=== PATIENT | female | born 1965 | race Caucasian/White ===

== ENCOUNTER → 2017-11-06 | Outpatient (CLI) | payer OTHER ==
--- NOTE | 2017-11-06 16:22 | MR ---
EXAMINATION TYPE: MR shoulder RT wo con DATE OF EXAM: 11/06/2017 COMPARISON: NONE HISTORY: Right shoulder pain TECHNIQUE: Multiplanar, multisequence imaging of the right shoulder is performed without contrast. Mo tion artifact is present during the exam. FINDINGS: Rotator Cuff: Appears be a perforation through the anterior supraspinatus tendon distally. This may e xtend into the subscapularis tendon. No muscle or tendon retraction is evident. Acromioclavicular Joint: There is some hypertrophy present. Minimal downward spurring is present. Mil d impingement is not excluded. Glenohumeral Joint: Glenohumeral joint spaces narrowed. Correlate for osteoarthritic degenerative joyce nge. Labrum: The labrum appears grossly intact given limitation of non-arthrogram study. Biceps Tendon: There is a large final fluid surrounding the long head of the biceps tendon. Correlate for significant biceps tendinosis Bone marrow signal: No focal abnormal marrow signal is appreciated. Other: No additional significant abnormality is appreciated. IMPRESSION: 1. Rotator cuff perforation likely at the region of the subscapularis supraspinatus junction. 2. Small joint effusion. 3. Significant fluid surrounding the long head of the biceps tendon. Correlate for biceps tendinosis.
== END | disposition home or self-care (01) ==
LOC: RADMRIMAIN 09:45
PROVIDERS: ATTEND Orthopaedic Surgery
DX: M25.411 Effusion, right shoulder (principal); M25.811 Other specified joint disorders, right shoulder

== ENCOUNTER 2019-03-11 14:04 | Inpatient (IN) | payer OTHER ==
[2019-03-11] MEDS ORDERED: ONDANSETRON 4 MG/2 ML VIAL IVP STA (14:38)
[2019-03-11] MEDS ORDERED: MORPHINE SULFATE 4 MG/ML SYRINGE IVP STA (14:38)
[2019-03-11] MEDS ORDERED: SODIUM CHLORIDE 0.9% 1,000 ML IV STA ×2 (14:39→17:14)
--- NOTE | 2019-03-11 14:46 | ED ---
Abdominal Pain HPI <Mega Coyle - Last Filed: 03/11/19 17:15> - General Source: patient, EMS Mode of arrival: EMS Limitations: no limitations <Tamiko Wetzel - Last Filed: 03/11/19 19:14> - General Chief Complaint: Abdominal Pain Stated Complaint: abdominal pain Time Seen by Provider: 03/11/19 14:32 - History of Present Illness Initial Comments: Patient is a 53-year-old female with past medical history of hypertension and hyperlipidemia presenting to emergency Department via EMS for severe abdominal pain that started about an hour ago. Patient states she was driving home and all of a sudden started sweating, and having severe left-sided abdominal pain. Patient also reports associated nausea and vomiting. Patient states she had a bowel movement shortly after returning home before she left and EMS. Patient denies any heart disease, but admits to mother having heart attack at age 50. Patient admits to history of abdominal surgeries including gastric bypass and several hernia repairs. (Tamiko Wetzel) - Related Data Home Medications Medication Instructions Recorded Confirmed Ibuprofen [Motrin] 800 mg PO Q8HR PRN 07/03/14 03/11/19 Lisinopril-Hctz 10-12.5 mg 1 tab PO DAILY 07/03/14 03/11/19 [Zestoretic 10-12.5] Simvastatin [Zocor] 10 mg PO HS 07/03/14 03/11/19 traMADol HCl [Ultram] 50 mg PO Q12H PRN 07/03/14 03/11/19 ALPRAZolam [Xanax] 0.25 mg PO BID PRN 03/11/19 03/11/19 Albuterol Sulfate [Proair Hfa] 2 puff INHALATION RT-Q6H PRN 03/11/19 03/11/19 Cholecalciferol [Vitamin D3 (25 3,000 unit PO DAILY 03/11/19 03/11/19 Mcg = 1000 Iu)] FLUoxetine HCL [PROzac] 80 mg PO DAILY 03/11/19 03/11/19 Mirabegron [Myrbetriq] 25 mg PO DAILY 03/11/19 03/11/19 Multivitamins, Thera [Multivitamin 1 tab PO DAILY 03/11/19 03/11/19 (formulary)] Oxybutynin Chloride [Oxybutynin 15 mg PO DAILY 03/11/19 03/11/19 Chloride ER] Triamterene-Hctz 37.5-25Mg 1 cap PO DAILY 03/11/19 03/11/19 [Dyazide 37.5-25 Capsule] Allergies Allergy/AdvReac Type Severity Reaction Status Date / Time cephalexin monohydrate Allergy Rash/Hives Verified 03/11/19 14:47 [From Keflex] Review of Systems ROS Other: All systems not noted in ROS Statement are negative. <Mega Coyle - Last Filed: 03/11/19 17:15> ROS Other: All systems not noted in ROS Statement are negative. <Tamiko Wetzel - Last Filed: 03/11/19 19:14> ROS Statement: Those systems with pertinent positive or pertinent negative responses have been documented in the HPI. Past Medical History Past Medical History: GERD/Reflux, Hyperlipidemia, Hypertension Additional Past Medical History / Comment(s): hernia History of Any Multi-Drug Resistant Organisms: None Reported Past Surgical History: Bariatric Surgery, Section, Cholecystectomy, Hernia Repair, Hysterectomy Additional Past Surgical History / Comment(s): lumpectomy Past Psychological History: Depression Smoking Status: Never smoker Past Alcohol Use History: Occasional Past Drug Use History: None Reported <Tamiko Wetzel - Last Filed: 03/11/19 19:14> General Exam Limitations: no limitations <Tamiko Wetzel - Last Filed: 03/11/19 19:14> - General Exam Comments Initial Comments: GENERAL: Patient appears to be in pain, diaphoretic. Patient able to speak and holding her abdomen. Patient is anxious. HEAD: Atraumatic, normocephalic. EYES: Pupils equal round and reactive to light, extraocular movements intact, sclera anicteric, conjunctiva are normal. ENT: TMs normal, nares patent, oropharynx clear without exudates. Moist mucous membranes. NECK: Normal range of motion, supple without lymphadenopathy or JVD. LUNGS: Breath sounds clear to auscultation bilaterally and equal. No wheezes rales or rhonchi. HEART: Bradycardic, and rhythm without murmurs, rubs or gallops. ABDOMEN: Abdomen is distended, generalized severe tenderness, patient is guarding, Normoactive bowel sounds. : Deferred EXTREMITIES: Normal range of motion, no pitting or edema. No clubbing or cyanosis. NEUROLOGICAL: Cranial nerves II through XII grossly intact. Normal speech, normal gait. PSYCH: Normal mood, normal affect. SKIN: Warm, Dry, normal turgor, no rashes or lesions noted. (Tamiko Wetzel) Course Vital Signs 03/11/19 14:08 Temperature 97.9 F Pulse Rate 47 L Respiratory 22 Rate Blood Pressure 183/119 O2 Sat by Pulse 100 Oximetry Medical Decision Making - Lab Data Result diagrams: 03/11/19 15:00 03/11/19 15:00 <Mega Coyle - Last Filed: 03/11/19 17:15> - Lab Data Result diagrams: 03/11/19 15:00 03/11/19 15:00 <Tamiko Wetzel - Last Filed: 03/11/19 19:14> - Medical Decision Making The patient was seen and examined. All diagnostics are reviewed. It does appear that she has a small bowel obstruction related to ventral hernia with possible ischemic bowel. The case is discussed with Dr. Cloud and he does re commend NG tube insertion and admission. The case is discussed with the PA and agree with the findings as documented. (Mega Coyle) Patient is a 53-year-old female complaining of severe abdominal pain since this morning. Patient has associated nausea, vomiting. Patient reports history of gastric bypass about 15 years ago and also several hernia repairs. On exam pat ient's abdomen was distended and generalized abdominal pain.CT abdomen shows large ventral abdominal hernia that contains mesenteric fat and multiple spinal small bowel loops resulting in a small bowel obstruction. There is reactive mesenteric edema and free fluid in the inferior hernia sac and measures up to 24 cm wide. There is portal venous gas within the inferior hernia sacs dishes for early bowel ischemia. Case was discussed with Dr. Coyle. Will contact Dr. Cloud for surgical consult. (Tamiko Wetzel) - Lab Data Lab Results 03/11/19 03/11/19 03/11/19 Range/Units 15:00 15:00 15:00 WBC 12.9 H (3.8-10.6) k/uL RBC 5.11 (3.80-5.40) m/uL Hgb 15.2 (11.4-16.0) gm/dL Hct 46.6 H (34.0-46.0) % MCV 91.3 (80.0-100.0) fL MCH 29.7 (25.0-35.0) pg MCHC 32.5 (31.0-37.0) g/dL RDW 13.8 (11.5-15.5) % Plt Count 372 (150-450) k/uL Neutrophils % 73 % Lymphocytes % 21 % Monocytes % 3 % Eosinophils % 2 % Basophils % 0 % Neutrophils # 9.4 H (1.3-7.7) k/uL Lymphocytes # 2.7 (1.0-4.8) k/uL Monocytes # 0.4 (0-1.0) k/uL Eosinophils # 0.2 (0-0.7) k/uL Basophils # 0.0 (0-0.2) k/uL Sodium 137 (137-145) mmol/L Potassium 4.3 (3.5-5.1) mmol/L Chloride 107 (98-107) mmol/L Carbon Dioxide 16 L (22-30) mmol/L Anion Gap 14 mmol/L BUN 26 H (7-17) mg/dL Creatinine 0.49 L (0.52-1.04) mg/dL Est GFR (CKD-EPI)AfAm >90 (>60 ml/min/1.73 sqM) Est GFR (CKD-EPI)NonAf >90 (>60 ml/min/1.73 sqM) Glucose 159 H (74-99) mg/dL Lactic Ac Sepsis Rflx Plasma Lactic Acid Zion 3.1 H* (0.7-2.0) mmol/L Calcium 9.3 (8.4-10.2) mg/dL Total Bilirubin 0.9 (0.2-1.3) mg/dL AST 31 (14-36) U/L ALT 25 (9-52) U/L Alkaline Phosphatase 65 (38-126) U/L Troponin I (0.000-0.034) ng/mL Total Protein 7.3 (6.3-8.2) g/dL Albumin 4.6 (3.5-5.0) g/dL 03/11/19 03/11/19 Range/Units 15:00 15:22 WBC (3.8-10.6) k/uL RBC (3.80-5.40) m/uL Hgb (11.4-16.0) gm/dL Hct (34.0-46.0) % MCV (80.0-100.0) fL MCH (25.0-35.0) pg MCHC (31.0-37.0) g/dL RDW (11.5-15.5) % Plt Count (150-450) k/uL Neutrophils % % Lymphocytes % % Monocytes % % Eosinophils % % Basophils % % Neutrophils # (1.3-7.7) k/uL Lymphocytes # (1.0-4.8) k/uL Monocytes # (0-1.0) k/uL Eosinophils # (0-0.7) k/uL Basophils # (0-0.2) k/uL Sodium (137-145) mmol/L Potassium (3.5-5.1) mmol/L Chloride (98-107) mmol/L Carbon Dioxide (22-30) mmol/L Anion Gap mmol/L BUN (7-17) mg/dL Creatinine (0.52-1.04) mg/dL Est GFR (CKD-EPI)AfAm (>60 ml/min/1.73 sqM) Est GFR (CKD-EPI)NonAf (>60 ml/min/1.73 sqM) Glucose (74-99) mg/dL Lactic Ac Sepsis Rflx Y Plasma Lactic Acid Zion (0.7-2.0) mmol/L Calcium (8.4-10.2) mg/dL Total Bilirubin (0.2-1.3) mg/dL AST (14-36) U/L ALT (9-52) U/L Alkaline Phosphatase (38-126) U/L Troponin I <0.012 (0.000-0.034) ng/mL Total Protein (6.3-8.2) g/dL Albumin (3.5-5.0) g/dL - EKG Data EKG Comments: Ventricular rate 51, AK interval 174, QRS 100, QTC 484. Sinus bradycardia, with prolonged QT. No ST segment changes. (Tamiko Wetzel) Disposition <Mega Coyle - Last Filed: 03/11/19 17:15> Is patient prescribed a controlled substance at d/c from ED?: No <Tamiko Wetzel - Last Filed: 03/11/19 19:14> Clinical Impression: Small bowel obstruction Disposition: ADMITTED IP TO THIS HOSP Condition: Stable
[2019-03-11 15:09] LABS: Basophils % (A) 0 %; Eosinophils # (A) 0.2 k/uL (0-0.7); Eosinophils % (A) 2 %; HCT 46.6 % (34.0-46.0); HGB 15.2 gm/dL (11.4-16.0); Lymphocytes # (A) 2.7 k/uL (1.0-4.8); Lymphocytes % (A) 21 %; MCH 29.7 pg (25.0-35.0); MCHC 32.5 g/dL (31.0-37.0); MCV 91.3 fL (80.0-100.0); Mean Platelet Volume 7.6; Monocytes # (A) 0.4 k/uL (0-1.0); Monocytes % (A) 3 %; Neutrophils # (A) 9.4 k/uL (1.3-7.7); Neutrophils % (A) 73 %; Platelet Count 372 k/uL (150-450); RBC 5.11 m/uL (3.80-5.40); RDW 13.8 % (11.5-15.5); WBC 12.9 k/uL (3.8-10.6)
[2019-03-11 15:17] LABS: African American GFR (CKD) >90 (>60 ml/min/1.73 sqM); Anion Gap 14 mmol/L; Blood Urea Nitrogen 26 mg/dL (7-17); Calcium 9.3 mg/dL (8.4-10.2); Carbon Dioxide 16 mmol/L (22-30); Chloride 107 mmol/L (98-107); Glucose 159 mg/dL (74-99); Sodium 137 mmol/L (137-145); Total Bilirubin 0.9 mg/dL (0.2-1.3)
[2019-03-11 15:19] LABS: ALT 25 U/L (9-52); AST 31 U/L (14-36); Albumin 4.6 g/dL (3.5-5.0); Potassium 4.3 mmol/L (3.5-5.1); Total Protein 7.3 g/dL (6.3-8.2)
[2019-03-11 15:20] LABS: Alkaline Phosphatase 65 U/L (38-126)
--- NOTE | 2019-03-11 15:53 | XR ---
EXAMINATION TYPE: XR chest 2V DATE OF EXAM: 03/11/2019 COMPARISON: NONE TECHNIQUE: PA and lateral views submitted. HISTORY: Cough and pain FINDINGS: The lungs are clear and there is no pneumothorax, pleural effusion, or focal pneumonia. Hypertrophi c and degenerative change of the spine noted. No overt failure. IMPRESSION: 1. No acute process.
--- NOTE | 2019-03-11 16:30 | CT ---
EXAMINATION TYPE: CT abdomen pelvis w con DATE OF EXAM: 03/11/2019 COMPARISON: 06/10/2015 HISTORY: 53-year-old female Generalized pain with vomiting TECHNIQUE: Contiguous axial scanning of the abdomen and pelvis following administration of 100 ml Iso alex 300 IV contrast. Delayed images through the kidneys and coronal/sagittal reconstructions perform ed. CT DLP: 2070.1 mGycm Automated exposure control for dose reduction was used. FINDINGS: Heart normal size without pericardial effusion. Small hiatal hernia with postsurgical changes of Francisco -en-Y gastric bypass No focal liver lesion or biliary ductal dilatation. Portal venous system is patent. Cholecystectomy c lips. Adrenal glands, kidneys, spleen, and atrophic pancreas show no gross abnormality. Redemonstrated supraumbilical midline hernia containing mesenteric fat and small bowel loops. The her shilpa sac measures 21.5 cm wide with the hernia neck measuring 9.2 cm wide (versus 24.7 cm and 8.1 cm, respectively on prior exam). However, new is a large infraumbilical component to the hernia measuring up to 24.0 cm. The hernia n radha measuring 7.7 cm wide. There is some fluid within the hernia sac and near multiple dilated small bowel loops measuring up to 4.5 cm. Distal ileum is collapsed. The hernia also contains proximal half of the transverse colon wh ich is collapsed. No mesenteric or retroperitoneal lymphadenopathy seen. No free air. However, some portal venous gas within the hernia sac is identified, refer to axial imag e 63 and 66. Bladder is nondistended. Uterus surgically absent. Possible visualization of a small left ovary. No a bnormal fluid collection in the pelvis or pelvic adenopathy. Bones: Facet arthropathy lower lumbar spine. Endplate spondylosis lower thoracic spine. IMPRESSION: 1. LARGE VENTRAL ABDOMINAL HERNIA SACS CONTAIN MESENTERIC FAT AND MULTIPLE SMALL BOWEL LOOPS AND RESU LT IN A SMALL BOWEL OBSTRUCTION WITH LOOPS DILATED UP TO 4.5 CM. THERE IS REACTIVE MESENTERIC EDEMA AND FREE FLUID IN THE INFERIOR HERNIA SAC WHICH IS NEW FROM 2014 AND MEASURES UP TO 24.0 CM WIDE. 2. ADDITIONAL PORTAL VENAL GAS WITHIN THE INFERIOR HERNIA SAC SUSPICIOUS FOR EARLY BOWEL ISCHEMIA. NO WILLIAM FREE AIR AT THIS TIME. CORRELATE WITH LACTIC ACID LEVELS. SURGICAL EVALUATION RECOMMENDED. 3. NOTE THAT THE INFERIOR HERNIA SAC ALSO CONTAINS COLLAPSED PROXIMAL HALF OF THE TRANSVERSE COLON. Critical findings called to Tamiko Wetzel in the ER at 4:25 PM.
[2019-03-11] MEDS ORDERED: NALOXONE 0.4 MG/ML 1 ML VIAL IV PRN (17:29)
[2019-03-11] MEDS ORDERED: MORPHINE SULFATE 4 MG/ML SYRINGE IV PRN (17:29)
[2019-03-11] MEDS: SODIUM CHLORIDE 0.9% 1,000 ML IV SCH (18:15)
--- NOTE | 2019-03-11 20:19 | XR ---
EXAMINATION: XR chest 1V DATE AND TIME: 03/11/2019 6:32 PM CLINICAL INDICATION: PHH; Pain TECHNIQUE: AP upright portable COMPARISON: 03/11/2019 at 3:59 PM FINDINGS: Since prior study and NG tube is been placed, and courses over the expected region of the thoracic es ophagus, looped within the projected position of the gastric cardia. The lungs are clear. The pleural spaces are negative. The cardiac silhouette is not enlarged. The remainder of the mediastinal silhouette is unremarkable. The skeletal structures and soft tissues are negative for acute findings. IMPRESSION: NG tube.
[2019-03-12] MEDS: SODIUM CHLORIDE 0.9% 1,000 ML IV SCH ×2 (06:16→19:47)
[2019-03-12 09:45] LABS: Basophils % (A) 0 %; Eosinophils # (A) 0.1 k/uL (0-0.7); Eosinophils % (A) 2 %; HCT 39.7 % (34.0-46.0); Lymphocytes # (A) 2.1 k/uL (1.0-4.8); Lymphocytes % (A) 29 %; MCH 30.6 pg (25.0-35.0); MCHC 32.6 g/dL (31.0-37.0); MCV 93.8 fL (80.0-100.0); Mean Platelet Volume 6.8; Monocytes # (A) 0.4 k/uL (0-1.0); Monocytes % (A) 5 %; Neutrophils # (A) 4.5 k/uL (1.3-7.7); Neutrophils % (A) 62 %; Platelet Count 296 k/uL (150-450); RBC 4.23 m/uL (3.80-5.40); RDW 13.2 % (11.5-15.5); WBC 7.3 k/uL (3.8-10.6)
[2019-03-12 10:16] LABS: ALT 21 U/L (9-52); AST 19 U/L (14-36); African American GFR (CKD) >90 (>60 ml/min/1.73 sqM); Alkaline Phosphatase 49 U/L (38-126); Anion Gap 3 mmol/L; Blood Urea Nitrogen 18 mg/dL (7-17); Calcium 8.2 mg/dL (8.4-10.2); Carbon Dioxide 24 mmol/L (22-30); Chloride 111 mmol/L (98-107); Glucose 91 mg/dL (74-99); Potassium 3.7 mmol/L (3.5-5.1); Sodium 138 mmol/L (137-145); Total Bilirubin 0.4 mg/dL (0.2-1.3); Total Protein 5.2 g/dL (6.3-8.2)
[2019-03-12] MEDS ORDERED: BENZOCAINE SPRAY 1 CAN MUCOUS MEM PRN (10:36)
[2019-03-12] MEDS: IOPAMIDOL-300 CONTRAST 30 ML VIAL (ORAL USE) PO PRN ×2 (11:18→12:09)
--- NOTE | 2019-03-12 12:57 | P.GSHP ---
History of Present Illness H&P Date: 03/12/19 Chief Complaint: abdominal pain CHIEF COMPLAINT: Abdominal pain HISTORY OF PRESENT ILLNESS: 53-year-old female who presented to emergency room with a chief complaint of abdominal pain. Patient states she was feeling well yesterday when all of a sudden she developed severe abdominal pain. She reports that her abdomen was very firm and bloated. She reports nausea yesterday but denies episodes of vomiting. NG tube was inserted overnight. Minimal output and canister. Patient states her abdominal pain has resolved. She states her belly feels back to normal and is no longer feeling bloated. She is passing flatus this morning. She denies bowel movement. PAST MEDICAL HISTORY: See list. PAST SURGICAL HISTORY: See list. SOCIAL HISTORY: No illicit drug use. REVIEW OF SYSTEMS: CONSTITUTIONAL: Denies fever or chills. HEENT: Denies blurred vision, vision changes, or eye pain. Denies hemoptysis CARDIOVASCULAR: Denies chest pain or pressure. RESPIRATORY: No shortness of breath. GASTROINTESTINAL: Refer to HPI for pertinent findings HEMATOLOGIC: Denies bleeding disorders. GENITOURINARY: Denies any blood in urine. SKIN: Denies pruitis. Denies rash. PHYSICAL EXAM: VITAL SIGNS: Reviewed. GENERAL: Well-developed in no acute distress. HEENT: No sclera icterus. Extraocular movements grossly intact. Moist buccal mucosa. Head is atraumatic, normocephalic. ABDOMEN: Obese. Soft. Nondistended. Nontender. Hernia to right lower quadrant-reducible. Ventral hernia reduced. NEUROLOGIC: Alert and oriented. Cranial nerves II through XII grossly intact. LABORATORY DATA: WBC on admission 12.9. Repeat 7.3. Hemoglobin on admission 15.2. Repeat 13.0. Lactic acid on admission 3.1. Repeat 1.1. IMAGING: Computed tomography abdomen and pelvis revealing large ventral hernia containing mesenteric fat and multiple small bowel loops with small bowel obstruction with loops dilated up to 4.5 cm. Reactive mesenteric edema and free fluid in the inferior hernia sac. Additional portal venal gas within the inferior hernia sac suspicious for early bowel ischemia. No marcell free air. Inferior hernia sac also contains collapsed proximal half of the transverse colon. ASSESSMENT: 1. Large ventral hernia with subsequent small bowel obstruction PLAN: 1. Continue NG tube. NPO 2. CT abdomen pelvis with oral contrast 3. Further recommendations pending CT scan results Nurse practitioner note has been reviewed by physician. Signing provider agrees with the documented findings, assessment, and plan of care. Past Medical History Past Medical History: GERD/Reflux, Hyperlipidemia, Hypertension Additional Past Medical History / Comment(s): hernia History of Any Multi-Drug Resistant Organisms: None Reported Past Surgical History: Bariatric Surgery, Section, Cholecystectomy, Hernia Repair, Hysterectomy Additional Past Surgical History / Comment(s): lumpectomy Past Anesthesia/Blood Transfusion Reactions: Postoperative Nausea & Vomiting (PONV) Past Psychological History: Anxiety, Depression Additional Psychological History / Comment(s): XANAS AND PROZAC NEEDED Smoking Status: Never smoker Past Alcohol Use History: Occasional Past Drug Use History: None Reported - Past Family History Father Family Medical History: CVA/TIA Additional Family Medical History / Comment(s): AT 49 Mother Family Medical History: Myocardial Infarction ([place]) Additional Family Medical History / Comment(s): AT 57 Medications and Allergies Home Medications Medication Instructions Recorded Confirmed Type Ibuprofen [Motrin] 800 mg PO Q8HR PRN 07/03/14 03/11/19 History Lisinopril-Hctz 10-12.5 mg 1 tab PO DAILY 07/03/14 03/11/19 History [Zestoretic 10-12.5] Simvastatin [Zocor] 10 mg PO HS 07/03/14 03/11/19 History traMADol HCl [Ultram] 50 mg PO Q12H PRN 07/03/14 03/11/19 History ALPRAZolam [Xanax] 0.25 mg PO BID PRN 03/11/19 03/11/19 History Albuterol Sulfate [Proair Hfa] 2 puff INHALATION RT-Q6H PRN 03/11/19 03/11/19 History Cholecalciferol [Vitamin D3 (25 3,000 unit PO DAILY 03/11/19 03/11/19 History Mcg = 1000 Iu)] FLUoxetine HCL [PROzac] 80 mg PO DAILY 03/11/19 03/11/19 History Mirabegron [Myrbetriq] 25 mg PO DAILY 03/11/19 03/11/19 History Multivitamins, Thera [Multivitamin 1 tab PO DAILY 03/11/19 03/11/19 History (formulary)] Oxybutynin Chloride [Oxybutynin 15 mg PO DAILY 03/11/19 03/11/19 History Chloride ER] Triamterene-Hctz 37.5-25Mg 1 cap PO DAILY 03/11/19 03/11/19 History [Dyazide 37.5-25 Capsule] Allergies Allergy/AdvReac Type Severity Reaction Status Date / Time cephalexin monohydrate Allergy Rash/Hives Verified 03/11/19 14:47 [From Keflex] Surgical - Exam Vital Signs Temp Pulse Resp BP Pulse Ox 97.9 F 47 L 22 183/119 100 03/11/19 14:08 03/11/19 14:08 03/11/19 14:08 03/11/19 14:08 03/11/19 14:08 Results - Labs 03/12/19 09:15 03/12/19 09:15 Abnormal Lab Results - Last 24 Hours (Table) 03/11/19 03/11/19 03/11/19 Range/Units 15:00 15:00 15:00 WBC 12.9 H (3.8-10.6) k/uL Hct 46.6 H (34.0-46.0) % Neutrophils # 9.4 H (1.3-7.7) k/uL Chloride (98-107) mmol/L Carbon Dioxide 16 L (22-30) mmol/L BUN 26 H (7-17) mg/dL Creatinine 0.49 L (0.52-1.04) mg/dL Glucose 159 H (74-99) mg/dL Plasma Lactic Acid Zion 3.1 H* (0.7-2.0) mmol/L Calcium (8.4-10.2) mg/dL Total Protein (6.3-8.2) g/dL Albumin (3.5-5.0) g/dL 03/12/19 Range/Units 09:15 WBC (3.8-10.6) k/uL Hct (34.0-46.0) % Neutrophils # (1.3-7.7) k/uL Chloride 111 H (98-107) mmol/L Carbon Dioxide (22-30) mmol/L BUN 18 H (7-17) mg/dL Creatinine 0.44 L (0.52-1.04) mg/dL Glucose (74-99) mg/dL Plasma Lactic Acid Zion (0.7-2.0) mmol/L Calcium 8.2 L (8.4-10.2) mg/dL Total Protein 5.2 L (6.3-8.2) g/dL Albumin 3.0 L (3.5-5.0) g/dL Diabetes panel 03/11/19 03/12/19 Range/Units 15:00 09:15 Sodium 137 138 (137-145) mmol/L Potassium 4.3 3.7 (3.5-5.1) mmol/L Chloride 107 111 H (98-107) mmol/L Carbon Dioxide 16 L 24 (22-30) mmol/L BUN 26 H 18 H (7-17) mg/dL Creatinine 0.49 L 0.44 L (0.52-1.04) mg/dL Glucose 159 H 91 (74-99) mg/dL Calcium 9.3 8.2 L (8.4-10.2) mg/dL AST 31 19 (14-36) U/L ALT 25 21 (9-52) U/L Alkaline Phosphatase 65 49 (38-126) U/L Total Protein 7.3 5.2 L (6.3-8.2) g/dL Albumin 4.6 3.0 L (3.5-5.0) g/dL Calcium panel 03/11/19 03/12/19 Range/Units 15:00 09:15 Calcium 9.3 8.2 L (8.4-10.2) mg/dL Albumin 4.6 3.0 L (3.5-5.0) g/dL Pituitary panel 03/11/19 03/12/19 Range/Units 15:00 09:15 Sodium 137 138 (137-145) mmol/L Potassium 4.3 3.7 (3.5-5.1) mmol/L Chloride 107 111 H (98-107) mmol/L Carbon Dioxide 16 L 24 (22-30) mmol/L BUN 26 H 18 H (7-17) mg/dL Creatinine 0.49 L 0.44 L (0.52-1.04) mg/dL Glucose 159 H 91 (74-99) mg/dL Calcium 9.3 8.2 L (8.4-10.2) mg/dL Adrenal panel 03/11/19 03/12/19 Range/Units 15:00 09:15 Sodium 137 138 (137-145) mmol/L Potassium 4.3 3.7 (3.5-5.1) mmol/L Chloride 107 111 H (98-107) mmol/L Carbon Dioxide 16 L 24 (22-30) mmol/L BUN 26 H 18 H (7-17) mg/dL Creatinine 0.49 L 0.44 L (0.52-1.04) mg/dL Glucose 159 H 91 (74-99) mg/dL Calcium 9.3 8.2 L (8.4-10.2) mg/dL Total Bilirubin 0.9 0.4 (0.2-1.3) mg/dL AST 31 19 (14-36) U/L ALT 25 21 (9-52) U/L Alkaline Phosphatase 65 49 (38-126) U/L Total Protein 7.3 5.2 L (6.3-8.2) g/dL Albumin 4.6 3.0 L (3.5-5.0) g/dL
--- NOTE | 2019-03-12 13:05 | CT ---
EXAMINATION TYPE: CT abdomen pelvis wo con DATE OF EXAM: 03/12/2019 HISTORY: Pain and bloating, possible bowel obstruction. Automated Exposure Control for Dose Reduction was Utilized. TECHNIQUE: CT scan of the abdomen and pelvis is performed with oral but without IV contrast. COMPARISON: CT abdomen and pelvis from yesterday FINDINGS: Within the limitations of a non-contrast study, the following observations are made. LUNG BASES: No significant abnormality is appreciated. LIVER/GB: Cholecystectomy clips are redemonstrated. PANCREAS: Mild to moderate generalized fat replaced atrophy of pancreas again seen. SPLEEN: No significant abnormality is seen. ADRENALS: No significant abnormality is seen. KIDNEYS: No significant abnormality is seen. BOWEL: The oral contrast only reaches mid small bowel level making evaluation of distal bowel subopti mal. There is new nasogastric tube projecting below diaphragm. Surgical changes from gastric bypass p rocedure are redemonstrated. There are no abnormally dilated small bowel loops on current study. There are persistent 2 wide neck hernia is containing nonobstructed small and large bowel loops in the midabdomen with some focal flui d in the right aspect of the hernia defect as well as mesenteric vessels and small lymph nodes throug hout the hernia defect all redemonstrated. There is interval improvement in small bowel dilatation an d air-fluid levels after nasogastric tube placement. GENITAL ORGANS: Uterus is surgically absent or markedly atrophic. LYMPH NODES: No greater than 1cm abdominal or pelvic lymph nodes are appreciated. OSSEOUS STRUCTURES: S-Shaped scoliosis with multilevel moderate spurring throughout the spine is pres ent. OTHER: No significant additional abnormality is seen. IMPRESSION: Interval improvement in dilated small bowel loops with air-fluid levels after nasogastric tube placement. Redemonstration of persistent large ventral wall hernias containing bowel as well as mesenteric vessels.
[2019-03-12] MEDS ORDERED: ALPRAZolam 0.25 MG TAB PO PRN (13:17)
[2019-03-12] MEDS ORDERED: ALBUTEROL NEBULIZED 2.5 MG/3 ML INHALATION PRN (13:17)
[2019-03-12] MEDS ORDERED: ACETAMINOPHEN TAB 325 MG TAB PO PRN (15:58)
[2019-03-12] MEDS: HEPARIN SODIUM,PORCINE 5,000 UNIT/ML 1 ML VIAL SQ SCH (16:31)
--- NOTE | 2019-03-12 16:50 | P.CONS ---
History of Present Illness - Reason for Consult Recommendations regarding antihypertensive medications - History of Present Illness 53-year-old the female was admitted for abdominal pain and the small bowel o bstruction. Patient appears to have adhesions multiple surgeries including the ventral hernia repair. Patient has an NG tube which is not draining anything since morning patient apparently was draining yesterday. Patient denied any fever chills nausea vomiting. Patient does have history of hypertension patient blood pressure is elevated and she is didn't receive any of her medication patient is an OMAYRA inhibitor and diuretic therapy diuretic therapy will be held as she is receiving IV fluids for small bowel obstruction. Patient's lisinopril dose will be increased tomorrow. He can give it the to the NG tube clamping although patient doesn't have any nausea at this time abdominal pain sig nificantly improved at this time. Patient has bowel sounds but still sluggish. Review of Systems REVIEW OF SYSTEMS: CONSTITUTIONAL: No fever, no malaise, no fatigue. HEENT: No recent visual problems or hearing problems. Denied any sore throat. CARDIOVASCULAR: No chest pain, orthopnea, PND, no palpitations, no syncope. PULMONARY: No shortness of breath, no cough, no hemoptysis. GASTROINTESTINAL: As mentioned in HPI NEUROLOGICAL: No headaches, no weakness, no numbness. HEMATOLOGICAL: Denies any bleeding or petechiae. GENITOURINARY: Denies any burning micturition, frequency, or urgency. MUSCULOSKELETAL/RHEUMATOLOGICAL: Denies any joint pain, swelling, or any muscle pain. ENDOCRINE: Denies any polyuria or polydipsia. The rest of the 14-point review of systems is negative. Past Medical History Past Medical History: GERD/Reflux, Hyperlipidemia, Hypertension Additional Past Medical History / Comment(s): hernia History of Any Multi-Drug Resistant Organisms: None Reported Past Surgical History: Bariatric Surgery, Section, Cholecystectomy, Hernia Repair, Hysterectomy Additional Past Surgical History / Comment(s): lumpectomy Past Anesthesia/Blood Transfusion Reactions: Postoperative Nausea & Vomiting (PONV) Past Psychological History: Anxiety, Depression Additional Psychological History / Comment(s): XANAS AND PROZAC NEEDED Smoking Status: Never smoker Past Alcohol Use History: Occasional Past Drug Use History: None Reported - Past Family History Father Family Medical History: CVA/TIA Additional Family Medical History / Comment(s): AT 49 Mother Family Medical History: Myocardial Infarction (MD) Additional Family Medical History / Comment(s): AT 57 Medications and Allergies Home Medications Medication Instructions Recorded Confirmed Type Ibuprofen [Motrin] 800 mg PO Q8HR PRN 07/03/14 03/11/19 History Lisinopril-Hctz 10-12.5 mg 1 tab PO DAILY 07/03/14 03/11/19 History [Zestoretic 10-12.5] Simvastatin [Zocor] 10 mg PO HS 07/03/14 03/11/19 History traMADol HCl [Ultram] 50 mg PO Q12H PRN 07/03/14 03/11/19 History ALPRAZolam [Xanax] 0.25 mg PO BID PRN 03/11/19 03/11/19 History Albuterol Sulfate [Proair Hfa] 2 puff INHALATION RT-Q6H PRN 03/11/19 03/11/19 History Cholecalciferol [Vitamin D3 (25 3,000 unit PO DAILY 03/11/19 03/11/19 History Mcg = 1000 Iu)] FLUoxetine HCL [PROzac] 80 mg PO DAILY 03/11/19 03/11/19 History Mirabegron [Myrbetriq] 25 mg PO DAILY 03/11/19 03/11/19 History Multivitamins, Thera [Multivitamin 1 tab PO DAILY 03/11/19 03/11/19 History (formulary)] Oxybutynin Chloride [Oxybutynin 15 mg PO DAILY 03/11/19 03/11/19 History Chloride ER] Triamterene-Hctz 37.5-25Mg 1 cap PO DAILY 03/11/19 03/11/19 History [Dyazide 37.5-25 Capsule] Allergies Allergy/AdvReac Type Severity Reaction Status Date / Time cephalexin monohydrate Allergy Rash/Hives Verified 03/11/19 14:47 [From Keflex] Physical Exam Vitals: Vital Signs Temp Pulse Pulse Pulse Resp BP BP 03/12/19 13:41 98.1 F 61 16 03/12/19 06:52 98.8 F 57 L 16 03/12/19 00:25 97.8 F 73 18 148/89 03/11/19 21:00 75 18 145/80 03/11/19 20:00 77 154/83 03/11/19 19:00 75 18 154/87 03/11/19 18:00 79 142/87 03/11/19 17:00 82 18 158/83 BP Pulse Ox 03/12/19 13:41 153/81 98 03/12/19 06:52 143/80 96 03/12/19 00:25 100 03/11/19 21:00 03/11/19 20:00 03/11/19 19:00 03/11/19 18:00 03/11/19 17:00 Intake and Output 03/12/19 03/12/19 03/12/19 06:59 14:59 22:59 Intake Total 200 Balance 200 Intake: Intake, IV Titration 200 Amount Sodium Chloride 0.9% 1, 200 000 ml @ 100 mls/hr IV . Q10H [facility] Rx#:[id number] Other: Voiding Method Toilet # Voids 1 2 PHYSICAL EXAMINATION: GENERAL: The patient is alert and oriented x3, not in any acute distress. Obese female HEENT: Pupils are round and equally reacting to light. EOMI. No scleral icterus. No conjunctival pallor. Normocephalic, atraumatic. No pharyngeal erythema. No thyromegaly. CARDIOVASCULAR: S1 and S2 present. No murmurs, rubs, or gallops. PULMONARY: Chest is clear to auscultation, no wheezing or crackles. ABDOMEN: Soft, nontender, sluggish bowel sounds MUSCULOSKELETAL: No joint swelling or deformity. EXTREMITIES: No cyanosis, clubbing, or pedal edema. NEUROLOGICAL: Gross neurological examination did not reveal any focal deficits. SKIN: No rashes. Results CBC & Chem 7: 03/12/19 09:15 03/12/19 09:15 Labs: Abnormal Lab Results - Last 24 Hours (Table) 03/12/19 Range/Units 09:15 Chloride 111 H (98-107) mmol/L BUN 18 H (7-17) mg/dL Creatinine 0.44 L (0.52-1.04) mg/dL Calcium 8.2 L (8.4-10.2) mg/dL Total Protein 5.2 L (6.3-8.2) g/dL Albumin 3.0 L (3.5-5.0) g/dL Assessment and Plan Plan: -Hypertension: Management as mentioned above we'll increase the dose of lisinopril hold off on diuretic therapy because of above-mentioned reasons -Partial small bowel obstruction further management as per primary service -Hyperlipidemia -Hypertension -Gastroesophageal reflux disease -anxiety and depression For above-mentioned chronic medical problems I'll resume on appropriate medications medication reconciliation was done
[2019-03-13] MEDS: SODIUM CHLORIDE 0.9% 1,000 ML IV SCH ×3 (00:22→20:57)
[2019-03-13] MEDS: HEPARIN SODIUM,PORCINE 5,000 UNIT/ML 1 ML VIAL SQ SCH ×4 (00:22→23:28)
[2019-03-13 07:26] LABS: Basophils % (A) 0 %; Eosinophils # (A) 0.2 k/uL (0-0.7); Eosinophils % (A) 4 %; HCT 38.4 % (34.0-46.0); HGB 12.4 gm/dL (11.4-16.0); Lymphocytes # (A) 2.1 k/uL (1.0-4.8); Lymphocytes % (A) 38 %; MCH 30.5 pg (25.0-35.0); MCHC 32.2 g/dL (31.0-37.0); MCV 94.7 fL (80.0-100.0); Monocytes # (A) 0.3 k/uL (0-1.0); Monocytes % (A) 5 %; Neutrophils # (A) 2.8 k/uL (1.3-7.7); Neutrophils % (A) 51 %; Platelet Count 260 k/uL (150-450); RBC 4.06 m/uL (3.80-5.40); WBC 5.5 k/uL (3.8-10.6)
[2019-03-13 07:53] LABS: African American GFR (CKD) >90 (>60 ml/min/1.73 sqM); Anion Gap 4 mmol/L; Blood Urea Nitrogen 12 mg/dL (7-17); Calcium 8.5 mg/dL (8.4-10.2); Carbon Dioxide 24 mmol/L (22-30); Chloride 112 mmol/L (98-107); Glucose 86 mg/dL (74-99); Potassium 3.7 mmol/L (3.5-5.1); Sodium 140 mmol/L (137-145)
[2019-03-13] MEDS ORDERED: TRIAMTERENE-HCTZ 37.5-25MG 1 EACH CAP PO SCH (09:00)
[2019-03-13] MEDS ORDERED: LISINOPRIL-HCTZ 10-12.5 MG 1 EACH TAB PO SCH (09:00)
[2019-03-13] MEDS: PANTOPRAZOLE 40 MG/10 ML VIAL IVP SCH (09:40)
[2019-03-13] MEDS: LISINOPRIL 20 MG TAB PO SCH (09:41)
[2019-03-13] MEDS: FLUoxetine HCL 20 MG CAP PO SCH (09:41)
[2019-03-13] MEDS: OXYBUTYNIN 15 MG TAB.ER.24 PO SCH (12:16)
--- NOTE | 2019-03-13 13:50 | P.PN ---
Progress Note - Text Progress Note Date: 03/13/19 The patient feels better. She's had flatus and a small bowel movement. She denies a significant abdominal pain. On exam her vital signs are stable. Her abdomen soft. Patient's nasogastric tube will be removed. She'll start on clear liquid advancing to full liquid diet.
--- NOTE | 2019-03-13 15:34 | P.PN ---
Subjective Patient does have bowel sounds, did pass gas NG tube no drainage probably this will be removed and patient is otherwise clinically doing well no overnight events blood pressure is better controlled but still elevated. Constitutional: Denied any fatigue denied any fever. Cardio vascular: denied any chest pain, palpitations Gastrointestinal denied any nausea vomiting Pulmonary: Denied any shortness of breath cough Neurologic denied any new focal deficits All inpatient medications were reviewed and appropriate changes in these medications as dictated in the interval history and assessment and plan. Objective - Vital Signs Vital signs: Vital Signs Temp 98.7 F 03/13/19 13:53 Pulse 50 L 03/13/19 13:53 Resp 16 03/13/19 13:53 BP 149/72 03/13/19 13:53 Pulse Ox 98 03/13/19 13:53 Intake & Output 03/12/19 03/13/19 03/13/19 18:59 06:59 18:59 Intake Total 1010 Balance 1010 Intake: Intake, IV Titration 1000 Amount Sodium Chloride 0.9% 1, 1000 000 ml @ 100 mls/hr IV . Q10H [facility] Rx#:[id number] Oral 10 Other: Voiding Method Toilet # Voids 2 1 # Bowel Movements 1 - Exam PHYSICAL EXAMINATION: GENERAL: The patient is alert and oriented x3, not in any acute distress. Well developed, well nourished. HEENT: Pupils are round and equally reacting to light. EOMI. No scleral icterus. No conjunctival pallor. Normocephalic, atraumatic. No pharyngeal erythema. No thyromegaly. CARDIOVASCULAR: S1 and S2 present. No murmurs, rubs, or gallops. PULMONARY: Chest is clear to auscultation, no wheezing or crackles. ABDOMEN: Soft, nontender, nondistended, normoactive bowel sounds. No palpable organomegaly. NG tube in place MUSCULOSKELETAL: Deferred to orthopedic surgery EXTREMITIES: No cyanosis, clubbing, or pedal edema. NEUROLOGICAL: Gross neurological examination did not reveal any focal deficits. SKIN: No rashes. - Labs CBC & Chem 7: 03/13/19 07:00 03/13/19 07:00 Labs: Abnormal Lab Results - Last 24 Hours (Table) 03/13/19 Range/Units 07:00 Chloride 112 H (98-107) mmol/L Creatinine 0.49 L (0.52-1.04) mg/dL Assessment and Plan Plan: -Hypertension: Patient blood pressures better controlled will continue the present regimen -Partial small bowel obstruction further management as per primary service NG tube will be removed today -Hyperlipidemia -Hypertension -Gastroesophageal reflux disease -anxiety and depression For above-mentioned chronic medical problems I'll resume on appropriate medicati ons medication reconciliation was done
[2019-03-14 02:38] VITALS: TEMP 98.5
[2019-03-14] MEDS: SODIUM CHLORIDE 0.9% 1,000 ML IV SCH (05:53)
[2019-03-14] MEDS: HEPARIN SODIUM,PORCINE 5,000 UNIT/ML 1 ML VIAL SQ SCH (08:16)
[2019-03-14] MEDS: PANTOPRAZOLE 40 MG/10 ML VIAL IVP SCH (08:16)
[2019-03-14] MEDS: LISINOPRIL 20 MG TAB PO SCH (08:16)
[2019-03-14] MEDS: FLUoxetine HCL 20 MG CAP PO SCH (08:16)
[2019-03-14] MEDS: OXYBUTYNIN 15 MG TAB.ER.24 PO SCH (08:17)
[2019-03-14 08:28] VITALS: BP 128/69; PULSE 42; RESP 15
[2019-03-14 08:42] LABS: Basophils % (A) 0 %; Eosinophils # (A) 0.2 k/uL (0-0.7); Eosinophils % (A) 3 %; HCT 36.9 % (34.0-46.0); HGB 11.8 gm/dL (11.4-16.0); Lymphocytes # (A) 2.1 k/uL (1.0-4.8); Lymphocytes % (A) 39 %; MCH 30.3 pg (25.0-35.0); MCHC 32.1 g/dL (31.0-37.0); MCV 94.4 fL (80.0-100.0); Mean Platelet Volume 6.9; Monocytes # (A) 0.2 k/uL (0-1.0); Monocytes % (A) 3 %; Neutrophils # (A) 2.9 k/uL (1.3-7.7); Neutrophils % (A) 53 %; Platelet Count 260 k/uL (150-450); RBC 3.91 m/uL (3.80-5.40); RDW 12.9 % (11.5-15.5); WBC 5.5 k/uL (3.8-10.6)
[2019-03-14 08:53] LABS: African American GFR (CKD) >90 (>60 ml/min/1.73 sqM); Anion Gap 6 mmol/L; Blood Urea Nitrogen 8 mg/dL (7-17); Calcium 8.7 mg/dL (8.4-10.2); Carbon Dioxide 24 mmol/L (22-30); Chloride 110 mmol/L (98-107); Glucose 119 mg/dL (74-99); Potassium 3.9 mmol/L (3.5-5.1); Sodium 140 mmol/L (137-145)
--- NOTE | 2019-03-14 10:59 | P.DS ---
Providers Date of admission: 03/11/19 17:15 Expected date of discharge: 03/14/19 Attending physician: Jose G Cloud Consults: 03/12/19 13:18 Consult Physician Routine Consulting Provider: Angelica Sr Consult Reason/Comments: medical management Do you want consulting provider notified?: Yes Primary care physician: Jennifer [place] Hospital Course: This is a 53-year-old female who was admitted to the hospital with a partial small bowel obstruction related to an incarcerated incisional hernia. Patient's symptoms resolved with conservative therapy. Please see CHART for details. Patient Condition at Discharge: Good Plan - Discharge Summary Discharge Rx Participant: Yes New Discharge Prescriptions: No Action Lisinopril-Hctz 10-12.5 mg [Zestoretic 10-12.5] 1 tab PO DAILY traMADol HCl [Ultram] 50 mg PO Q12H PRN PRN Reason: Pain Simvastatin [Zocor] 10 mg PO HS Ibuprofen [Motrin] 800 mg PO Q8HR PRN PRN Reason: Pain Oxybutynin Chloride [Oxybutynin Chloride ER] 15 mg PO DAILY FLUoxetine HCL [PROzac] 80 mg PO DAILY ALPRAZolam [Xanax] 0.25 mg PO BID PRN PRN Reason: Anxiety Triamterene-Hctz 37.5-25Mg [Dyazide 37.5-25 Capsule] 1 cap PO DAILY Albuterol Sulfate [Proair Hfa] 2 puff INHALATION RT-Q6H PRN PRN Reason: Shortness Of Breath Multivitamins, Thera [Multivitamin (formulary)] 1 tab PO DAILY Cholecalciferol [Vitamin D3 (25 Mcg = 1000 Iu)] 3,000 unit PO DAILY Mirabegron [Myrbetriq] 25 mg PO DAILY Discharge Medication List Ibuprofen [Motrin] 800 mg PO Q8HR PRN 07/03/14 [History] Lisinopril-Hctz 10-12.5 mg [Zestoretic 10-12.5] 1 tab PO DAILY 07/03/14 [History] Simvastatin [Zocor] 10 mg PO HS 07/03/14 [History] traMADol HCl [Ultram] 50 mg PO Q12H PRN 07/03/14 [History] ALPRAZolam [Xanax] 0.25 mg PO BID PRN 03/11/19 [History] Albuterol Sulfate [Proair Hfa] 2 puff INHALATION RT-Q6H PRN 03/11/19 [History] Cholecalciferol [Vitamin D3 (25 Mcg = 1000 Iu)] 3,000 unit PO DAILY 03/11/19 [History] FLUoxetine HCL [PROzac] 80 mg PO DAILY 03/11/19 [History] Mirabegron [Myrbetriq] 25 mg PO DAILY 03/11/19 [History] Multivitamins, Thera [Multivitamin (formulary)] 1 tab PO DAILY 03/11/19 [History] Oxybutynin Chloride [Oxybutynin Chloride ER] 15 mg PO DAILY 03/11/19 [History] Triamterene-Hctz 37.5-25Mg [Dyazide 37.5-25 Capsule] 1 cap PO DAILY 03/11/19 [History] Follow up Appointment(s)/Referral(s): Jennifer Robert III, MD [Primary Care Provider] - 1-2 days Jose G Cloud MD [STAFF PHYSICIAN] - 1 Week
[2019-03-15] MEDS ORDERED: PANTOPRAZOLE 40 MG TABLET PO SCH (09:00)
== END 2019-03-14 13:20 | disposition home or self-care (01) | DRG 395 ==
LOC: EC 14:04 → 4SSUR 17:15
PROVIDERS: ADMIT Surgery; ATTEND Surgery
DX: K43.0 Incisional hernia with obstruction, without gangrene (principal); K21.9 Gastro-esophageal reflux disease without esophagitis; I10 Essential (primary) hypertension; E78.5 Hyperlipidemia, unspecified; F32.9 Major depressive disorder, single episode, unspecified; F41.9 Anxiety disorder, unspecified; Z82.49 Family history of ischemic heart disease and other diseases of the circulatory system; Z90.710 Acquired absence of both cervix and uterus; Z90.49 Acquired absence of other specified parts of digestive tract; Z79.899 Other long term (current) drug therapy; Z88.1 Allergy status to other antibiotic agents
CPT/HCPCS: 36415; 71045; 71046; 74176; 74177; 80048; 80053; 83605; 84484; 85025; 93005; 96361; 96374; 96375; 96376; 99285

== ENCOUNTER → 2019-07-01 | Outpatient (CLI) | payer OTHER ==
[2019-07-01 14:01] LABS: Basophils % (A) 1 %; Eosinophils # (A) 0.2 k/uL (0-0.7); Eosinophils % (A) 3 %; HCT 41.1 % (34.0-46.0); HGB 13.7 gm/dL (11.4-16.0); Lymphocytes # (A) 2.3 k/uL (1.0-4.8); Lymphocytes % (A) 41 %; MCH 30.4 pg (25.0-35.0); MCHC 33.3 g/dL (31.0-37.0); MCV 91.4 fL (80.0-100.0); Mean Platelet Volume 6.6; Monocytes # (A) 0.3 k/uL (0-1.0); Monocytes % (A) 6 %; Neutrophils # (A) 2.7 k/uL (1.3-7.7); Neutrophils % (A) 48 %; Platelet Count 314 k/uL (150-450); RDW 12.9 % (11.5-15.5); WBC 5.6 k/uL (3.8-10.6)
== END | disposition home or self-care (01) ==
LOC: LABWHC1 12:58
PROVIDERS: ATTEND Surgery
DX: Z01.812 Encounter for preprocedural laboratory examination (principal); K43.0 Incisional hernia with obstruction, without gangrene; F17.200 Nicotine dependence, unspecified, uncomplicated; D64.9 Anemia, unspecified
CPT/HCPCS: 36415; 85025

== ENCOUNTER 2019-07-04 06:04 | Observation (INO) | payer OTHER ==
[~2019-07-04 06:04] MED LIST: CLINDAMYCIN 900 MG in DEXTROSE 5% IN WATER 50 ML IVPB ONE; DEXAMETHASONE SOD PHOSPHATE 10 MG/ML 1 ML VIAL IV ONE; HEPARIN SODIUM,PORCINE 5,000 UNIT/ML 1 ML VIAL SQ ONE; LACTATED RINGERS 1,000 ML IV SCH; LEVOFLOXACIN 500MG-D5W PMX 500 MG in DEXTROSE/WATER 1 100ML.BAG IVPB ONE; LIDOCAINE 1% 20 ML VIAL (10MG/ML) FOR IV START INTRADERMA PRN; ONDANSETRON 4 MG/2 ML VIAL IVP ONE; SCOPOLAMINE 1.5MG/72HR PATCH TRANSDERM ONE
[2019-07-04] MEDS ORDERED: MIDAZOLAM PF (FBP) 2 MG/2 ML VIAL IVP ONE (07:01)
[2019-07-04] MEDS ORDERED: fentaNYL (PF) 50 MCG/ML 2 ML AMP IVP ONE (07:02)
--- NOTE | 2019-07-04 08:03 | P.GSHP ---
History of Present Illness H&P Date: 07/04/19 Chief Complaint: Incisional hernia, incarcerated This is a 54-year-old female who presents today for open repair of a large incarcerated incisional hernia. Patient sent. History of partial small bowel obstruction related to hernia. 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 Past Anesthesia/Blood Transfusion Reactions: Postoperative Nausea & Vomiting (PONV) Smoking Status: Former smoker - Past Family History Father Family Medical History: CVA/TIA Additional Family Medical History / Comment(s): AT 49 Mother Family Medical History: Myocardial Infarction (DC) Additional Family Medical History / Comment(s): AT 57 Medications and Allergies Home Medications Medication Instructions Recorded Confirmed Type Ibuprofen [Motrin] 800 mg PO Q8HR PRN 07/03/14 07/04/19 History Lisinopril-Hctz 10-12.5 mg 1 tab PO HS 07/03/14 07/04/19 History [Zestoretic 10-12.5] Simvastatin [Zocor] 10 mg PO HS 07/03/14 07/04/19 History traMADol HCl [Ultram] 50 mg PO Q12H PRN 07/03/14 07/04/19 History ALPRAZolam [Xanax] 0.25 mg PO BID PRN 03/11/19 07/04/19 History Albuterol Sulfate [Proair Hfa] 2 puff INHALATION RT-Q6H PRN 03/11/19 07/04/19 History FLUoxetine HCL [PROzac] 80 mg PO HS 03/11/19 07/04/19 History Multivitamins, Thera [Multivitamin 1 tab PO DAILY 03/11/19 07/04/19 History (formulary)] Oxybutynin Chloride [Oxybutynin 15 mg PO HS 03/11/19 07/04/19 History Chloride ER] Triamterene-Hctz 37.5-25Mg 1 cap PO DAILY PRN 07/02/19 07/04/19 History [Dyazide 37.5-25 Capsule] Allergies Allergy/AdvReac Type Severity Reaction Status Date / Time cephalexin monohydrate Allergy Rash/Hives Verified 07/04/19 06:20 [From Keflex] Surgical - Exam Vital Signs Temp Pulse Resp BP Pulse Ox 97.6 F 59 L 16 109/55 97 07/04/19 06:25 07/04/19 06:25 07/04/19 06:25 07/04/19 06:25 07/04/19 06:25 - General well developed, well nourished, no distress - Eyes PERRL - ENT normal pinna - Neck no masses - Respiratory normal expansion - Cardiovascular Rhythm: regular - Abdomen Abdomen: soft, non tender Results - Labs 07/04/19 06:35 Diabetes panel 07/04/19 Range/Units 06:35 Potassium 3.8 (3.5-5.1) mmol/L Pituitary panel 07/04/19 Range/Units 06:35 Potassium 3.8 (3.5-5.1) mmol/L Adrenal panel 07/04/19 Range/Units 06:35 Potassium 3.8 (3.5-5.1) mmol/L Assessment and Plan Assessment: Incisional hernia. We'll perform open repair with mesh.
[2019-07-04] MEDS ORDERED: fentaNYL (PF) 50 MCG/ML 2 ML AMP ONE (08:04)
[2019-07-04] MEDS ORDERED: GLYCOPYRROLATE 0.2 MG/ML 2 ML VIAL ONE (08:04)
[2019-07-04] MEDS ORDERED: NEOSTIGMINE 1 MG/ML 10 ML VIAL ONE (08:04)
[2019-07-04] MEDS ORDERED: ROCURONIUM BROMIDE 10 MG/ML 10 ML VIAL IV ONE (08:04)
[2019-07-04] MEDS ORDERED: KETOROLAC 30 MG/ML 1 ML VIAL ONE (08:04)
[2019-07-04] MEDS ORDERED: LIDOCAINE 1% INJ 10MG/ML (20 ML MDV) ONE (08:04)
[2019-07-04] MEDS ORDERED: ROPIVACAINE 5 MG/ML 30 ML VIAL ONE (08:04)
[2019-07-04] MEDS ORDERED: DEXAMETHASONE SOD PHOSPHATE 4 MG/ML 1 ML VIAL ONE (08:04)
[2019-07-04] MEDS ORDERED: PROPOFOL 10 MG/ML 20 ML VIAL IV ONE (08:04)
[2019-07-04] MEDS ORDERED: LACTATED RINGERS 1,000 ML IV ONE ×4 (08:19→10:53)
[2019-07-04] MEDS ORDERED: BUPIVACAINE (PF) 0.25% 30 ML VIAL SQ ONE (08:35)
[2019-07-04] MEDS ORDERED: ONDANSETRON 4 MG/2 ML VIAL IVP PRN (10:16)
[2019-07-04] MEDS ORDERED: ACETAMINOPHEN TAB 325 MG TAB PO PRN (10:16)
[2019-07-04] MEDS ORDERED: METOCLOPRAMIDE 5 MG/ML 2 ML VIAL IVP PRN (10:16)
[2019-07-04] MEDS ORDERED: NALOXONE 0.4 MG/ML 1 ML VIAL IV PRN (10:16)
--- NOTE | 2019-07-04 10:16 | P.OP ---
Date of Procedure: 07/04/19 Preoperative Diagnosis: Recurrent incarcerated incisional hernia Postoperative Diagnosis: Recurrent incarcerated incisional hernia Procedure(s) Performed: (Of recurrent incarcerated incisional hernia with mesh Anesthesia: YOHANA Surgeon: Jose G Cloud Estimated Blood Loss (ml): 100 Pathology: none sent Condition: stable Disposition: PACU Description of Procedure: The patient's placed on the operative table in the supine position. She received general anesthesia. Her abdomen was prepped and draped usual sterile fashion. The skin was incised midline. Patient had a large midline recurrent incisional hernia. There is incarcerated small bowel within the hernia. Using cautery the subcutaneous tissue divided. In the hernia sac was dissected free from the subcutaneous tissue. The fascia external oblique was exposed using left cautery. Several small perforating vessels were ligated and the lateral coagulate. The hernia was reduced back into the perineal cavity. And then the fascia was reapproximated with #1 strep fix suture. After this is performed. The mesh was placed over top the repair and secured with a secure secure strap tacker. A SANDY drains placed over top of the repair and brought out through separate stab incision. Cole's fascia closed with 0 Vicryl. Skin was closed dona. Patient top she will was sent to recovery room in stable condition.
[2019-07-04] MEDS: HYDROmorphone 0.5 MG/0.5 ML SYRINGE IVP PRN ×7 (10:36→18:10)
[2019-07-04] MEDS ORDERED: ONDANSETRON 4 MG/2 ML VIAL IVP ONE (10:54)
[2019-07-04] MEDS: KETOROLAC 30 MG/ML 1 ML VIAL IVP SCH ×3 (11:41→23:48)
[2019-07-04] MEDS: HYDROcodone/APAP 5-325MG 1 EACH TAB PO PRN (12:41)
--- NOTE | 2019-07-04 14:10 | P.ANPRN ---
Procedure Note - Anesthesia - Nerve Block Performed Bilateral Rectus Abdominis Single Time Out Performed: Yes Date of Procedure: 07/04/19 Procedure Start Time: 07:00 Procedure Stop Time: 07:10 Location of Patient Procedure: PreOp Indication: Acute Post-Operative Pain, Requested by Surgeon Sedation Type: Sedate with meaningful contact maintained Preparation: Sterile Prep Position: Supine Catheter: None Needle Types: Pajunk Needle Gauge: 21 Ultrasound used to visualize needle placement: Yes Ultrasound used to observe medication spread: Yes Injectate: 0.5% Ropivacaine (see comment for volume) (20cc + 2mg dexamethasone per side) Blood Aspirated: No Pain Paresthesia on Injection Noted: No Resistance on Injection: Normal Image Stored and Saved: Yes Events: Uneventful and Well Tolerated
[2019-07-04 17:19] VITALS: BMI 44.8
[2019-07-04] MEDS ORDERED: ALPRAZolam 0.25 MG TAB PO PRN (20:12)
[2019-07-04] MEDS ORDERED: TRIAMTERENE-HCTZ 37.5-25MG 1 EACH CAP PO PRN (20:12)
[2019-07-04] MEDS ORDERED: FLUoxetine HCL 20 MG CAP PO SCH (21:00)
[2019-07-04] MEDS ORDERED: LISINOPRIL-HCTZ 10-12.5 MG 1 EACH TAB PO SCH (21:00)
[2019-07-04] MEDS ORDERED: ATORVASTATIN 10 MG TAB PO SCH (21:00)
[2019-07-04] MEDS ORDERED: OXYBUTYNIN 15 MG TAB.ER.24 PO SCH (21:30)
[2019-07-05] MEDS: HYDROmorphone 0.5 MG/0.5 ML SYRINGE IVP PRN ×2 (02:17→06:17)
[2019-07-05] MEDS: KETOROLAC 30 MG/ML 1 ML VIAL IVP SCH (06:15)
--- NOTE | 2019-07-05 08:52 | P.DS ---
Providers Date of admission: 07/04/19 18:10 Expected date of discharge: 07/05/19 Attending physician: Jose G Cloud Primary care physician: Jennifer Robert [facility] Course: This a 51-year-old female who underwent open repair of a large incisional hernia. Patient did well postoperative. Please see hospital chart for details. Plan - Discharge Summary Discharge Rx Participant: No New Discharge Prescriptions: New Docusate [Colace] 100 mg PO BID #20 capsule HYDROcodone/APAP 5-325MG [Barton 5-325] 1 tab PO Q6HR PRN #10 tab PRN Reason: Pain No Action Lisinopril-Hctz 10-12.5 mg [Zestoretic 10-12.5] 1 tab PO HS traMADol HCl [Ultram] 50 mg PO Q12H PRN PRN Reason: Pain Simvastatin [Zocor] 10 mg PO HS Ibuprofen [Motrin] 800 mg PO Q8HR PRN PRN Reason: Pain Oxybutynin Chloride [Oxybutynin Chloride ER] 15 mg PO HS FLUoxetine HCL [PROzac] 80 mg PO HS ALPRAZolam [Xanax] 0.25 mg PO BID PRN PRN Reason: Anxiety Albuterol Sulfate [Proair Hfa] 2 puff INHALATION RT-Q6H PRN PRN Reason: Shortness Of Breath Multivitamins, Thera [Multivitamin (formulary)] 1 tab PO DAILY Triamterene-Hctz 37.5-25Mg [Dyazide 37.5-25 Capsule] 1 cap PO DAILY PRN PRN Reason: Edema Discharge Medication List Ibuprofen [Motrin] 800 mg PO Q8HR PRN 07/03/14 [History] Lisinopril-Hctz 10-12.5 mg [Zestoretic 10-12.5] 1 tab PO HS 07/03/14 [History] Simvastatin [Zocor] 10 mg PO HS 07/03/14 [History] traMADol HCl [Ultram] 50 mg PO Q12H PRN 07/03/14 [History] ALPRAZolam [Xanax] 0.25 mg PO BID PRN 03/11/19 [History] Albuterol Sulfate [Proair Hfa] 2 puff INHALATION RT-Q6H PRN 03/11/19 [History] FLUoxetine HCL [PROzac] 80 mg PO HS 03/11/19 [History] Multivitamins, Thera [Multivitamin (formulary)] 1 tab PO DAILY 03/11/19 [History] Oxybutynin Chloride [Oxybutynin Chloride ER] 15 mg PO HS 03/11/19 [History] Triamterene-Hctz 37.5-25Mg [Dyazide 37.5-25 Capsule] 1 cap PO DAILY PRN 07/02/19 [History] Docusate [Colace] 100 mg PO BID #20 capsule 07/05/19 [Rx] HYDROcodone/APAP 5-325MG [Barton 5-325] 1 tab PO Q6HR PRN #10 tab 07/05/19 [Rx] Follow up Appointment(s)/Referral(s): Jose G Cloud MD [STAFF PHYSICIAN] - 07/11/19 3:20 pm Discharge Disposition: HOME SELF-CARE
[2019-07-05] MEDS ORDERED: ENOXAPARIN 40 MG/0.4 ML SYRINGE SQ SCH (09:00)
[2019-07-05 09:18] VITALS: BP 113/67; PULSE 65; RESP 16; TEMP 98.7
[2019-07-05] MEDS: HYDROcodone/APAP 5-325MG 1 EACH TAB PO PRN (10:34)
== END 2019-07-05 11:55 | disposition home or self-care (01) ==
LOC: OR 06:04 → 6PED 10:12 → OR 18:10 → 6PED 07-05 06:35
PROVIDERS: ADMIT Surgery; ATTEND Surgery
DX: K43.0 Incisional hernia with obstruction, without gangrene (principal); K21.9 Gastro-esophageal reflux disease without esophagitis; I10 Essential (primary) hypertension; E78.5 Hyperlipidemia, unspecified; F41.9 Anxiety disorder, unspecified; F32.9 Major depressive disorder, single episode, unspecified; J45.990 Exercise induced bronchospasm; Z79.899 Other long term (current) drug therapy; Z88.1 Allergy status to other antibiotic agents; Z87.891 Personal history of nicotine dependence; Z98.84 Bariatric surgery status; Z90.49 Acquired absence of other specified parts of digestive tract; Z90.710 Acquired absence of both cervix and uterus; Z82.49 Family history of ischemic heart disease and other diseases of the circulatory system; Z82.3 Family history of stroke
CPT/HCPCS: 49566; 49568; 64486; 84132; G0378 ×2; C1781; J1644; J1100 ×2; J2710; J2405; J1956; J2001; J1650; J3010; J1885 ×2; J2795; J2704; J1170 ×2; J2250

== ENCOUNTER 2019-07-19 12:56 | Emergency (ER) | payer OTHER ==
[2019-07-19] MEDS ORDERED: SODIUM CHLORIDE 0.9% 1,000 ML IV STA (13:50)
[2019-07-19 14:17] LABS: Basophils # (A) 0.3 k/uL (0-0.2); Basophils % (A) 2 %; Eosinophils # (A) 0.4 k/uL (0-0.7); Eosinophils % (A) 3 %; HCT 36.6 % (34.0-46.0); HGB 11.2 gm/dL (11.4-16.0); Lymphocytes % (A) 13 %; MCH 28.9 pg (25.0-35.0); MCHC 30.5 g/dL (31.0-37.0); MCV 94.7 fL (80.0-100.0); Mean Platelet Volume 6.5; Monocytes # (A) 1.3 k/uL (0-1.0); Monocytes % (A) 9 %; Neutrophils # (A) 11.2 k/uL (1.3-7.7); Neutrophils % (A) 73 %; RBC 3.87 m/uL (3.80-5.40); RDW 12.6 % (11.5-15.5); WBC 15.3 k/uL (3.8-10.6)
--- NOTE | 2019-07-19 14:22 | ED ---
General Adult HPI - General Chief complaint: Recheck/Abnormal Lab/Rx Stated complaint: altered mental Time Seen by Provider: 07/19/19 13:16 Source: patient Mode of arrival: ambulatory Limitations: no limitations - History of Present Illness Initial comments: Patient is a 54-year-old female presenting to the emergency Department with complaints of not being well asleep for the last week as well as having severe jerking of her limbs during sleep. Patient recently had an incisional hernia repair done on 07/04/[address] Fabio chris. Patient has had 2 follow-up since the surgery and incision is healing well. There are still dona present. Patient states her incision soreness is minimal and is being controlled with Motrin at this time. Patient's states that he landed patient is trying to sleep. He sees her limbs drinking severely. When patient awakes, she states she feels like she has "charley horses" all over. Patient denies fever, chills, cough, chest pain. Patient does admit to occasional dizziness when she stands or when she stands for a long period of time and then starts to walk. Patient has no other complaints at this time. Upon arrival to ER, vital signs are stable. - Related Data Home Medications Medication Instructions Recorded Confirmed Ibuprofen [Motrin] 800 mg PO Q8HR PRN 07/03/14 07/19/19 Lisinopril-Hctz 10-12.5 mg 1 tab PO HS 07/03/14 07/19/19 [Zestoretic 10-12.5] Simvastatin [Zocor] 10 mg PO HS 07/03/14 07/19/19 traMADol HCl [Ultram] 50 mg PO Q12H PRN 07/03/14 07/19/19 ALPRAZolam [Xanax] 0.25 mg PO BID PRN 03/11/19 07/19/19 Albuterol Sulfate [Proair Hfa] 2 puff INHALATION RT-Q6H PRN 03/11/19 07/19/19 FLUoxetine HCL [PROzac] 80 mg PO HS 03/11/19 07/19/19 Multivitamins, Thera [Multivitamin 1 tab PO DAILY 03/11/19 07/19/19 (formulary)] Oxybutynin Chloride [Oxybutynin 15 mg PO HS 03/11/19 07/19/19 Chloride ER] Triamterene-Hctz 37.5-25Mg 1 cap PO DAILY PRN 07/02/19 07/19/19 [Dyazide 37.5-25 Capsule] Acetaminophen-Codeine 300-30mg 1 tab PO Q4-6H PRN 07/19/19 07/19/19 [Tylenol w/codeine #3] Previous Rx's Medication Instructions Recorded Cyclobenzaprine [Flexeril] 5 mg PO BID #10 tablet 07/19/19 Allergies Allergy/AdvReac Type Severity Reaction Status Date / Time cephalexin monohydrate Allergy Rash/Hives Verified 07/19/19 14:05 [From [employer]] Review of Systems ROS Statement: Those systems with pertinent positive or pertinent negative responses have been documented in the HPI. ROS Other: All systems not noted in ROS Statement are negative. 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 HEAD: Atraumatic, normocephalic. EYES: Pupils equal round and reactive to light, extraocular movements intact, sclera anicteric, conjunctiva are normal. ENT: TMs normal, nares patent, oropharynx clear without exudates. Moist mucous membranes. NECK: Normal range of motion, supple without lymphadenopathy or JVD. LUNGS: Breath sounds clear to auscultation bilaterally and equal. No wheezes rales or rhonchi. HEART: Regular rate and rhythm without murmurs, rubs or gallops. ABDOMEN: There is a long center mid-abdomen incision from the umbilicus down to suprapubic area from recent incisional hernia repair. There is no tenderness to palpation surrounding the incision. There is mild surrounding erythema. Soft, nontender, normoactive bowel sounds. No guarding, no rebound. No masses appreciated. : Deferred EXTREMITIES: Normal range of motion, no pitting or edema. No clubbing or cyanosis. NEUROLOGICAL: Cranial nerves II through XII grossly intact. Normal speech, normal gait. PSYCH: Normal mood, normal affect. SKIN: Warm, Dry, normal turgor, no rashes. Limitations: no limitations Course Vital Signs 07/19/19 07/19/19 13:08 16:05 Temperature 98.6 F 98 F Pulse Rate 81 91 Respiratory 18 20 Rate Blood Pressure 113/71 148/80 O2 Sat by Pulse 97 97 Oximetry EKG Findings - EKG Comments: EKG Findings:: Ventricular rate 75, MN interval 152, QTC 484. Normal sinus rhythm. No acute ST segment changes Medical Decision Making - Medical Decision Making Patient is a 54-year-old female presenting with complaints of abnormal limb jerking while sleeping x 5 days. Patient recently had incisional hernia repair done by Dr. Cloud 2 weeks ago, and has had proper follow-up without complications thus far. Patient is afebrile, vital signs stable. Lab work is non-impressive today. Urine is normal. EKG normal. Discussed with patient and her workup appears normal today. Incision does not look to be infected. Case was discussed with Dr. Bernal. Patient will be discharged home today with a trial of Flexeril. Patient will follow up with PCP on Monday if symptoms do not improve. Patient is in agreement with this plan of care. Return parameters were discussed with the patient and she verbalized understanding. - Lab Data Result diagrams: 07/19/19 13:30 07/19/19 13:30 Lab Results 07/19/19 07/19/19 07/19/19 Range/Units 13:30 13:30 13:30 WBC 15.3 H (3.8-10.6) k/uL RBC 3.87 (3.80-5.40) m/uL Hgb 11.2 L (11.4-16.0) gm/dL Hct 36.6 (34.0-46.0) % MCV 94.7 (80.0-100.0) fL MCH 28.9 (25.0-35.0) pg MCHC 30.5 L (31.0-37.0) g/dL RDW 12.6 (11.5-15.5) % Plt Count 750 H D (150-450) k/uL Neutrophils % 73 % Lymphocytes % 13 % Monocytes % 9 % Eosinophils % 3 % Basophils % 2 % Neutrophils # 11.2 H (1.3-7.7) k/uL Lymphocytes # 2.0 (1.0-4.8) k/uL Monocytes # 1.3 H (0-1.0) k/uL Eosinophils # 0.4 (0-0.7) k/uL Basophils # 0.3 H (0-0.2) k/uL Sodium 137 (137-145) mmol/L Potassium 3.5 (3.5-5.1) mmol/L Chloride 103 (98-107) mmol/L Carbon Dioxide 25 (22-30) mmol/L Anion Gap 9 mmol/L BUN 19 H (7-17) mg/dL Creatinine 0.57 (0.52-1.04) mg/dL Est GFR (CKD-EPI)AfAm >90 (>60 ml/min/1.73 sqM) Est GFR (CKD-EPI)NonAf >90 (>60 ml/min/1.73 sqM) Glucose 100 H (74-99) mg/dL Calcium 8.5 (8.4-10.2) mg/dL Total Bilirubin 0.3 (0.2-1.3) mg/dL AST 19 (14-36) U/L ALT 24 (9-52) U/L Alkaline Phosphatase 74 (38-126) U/L Total Protein 6.1 L (6.3-8.2) g/dL Albumin 3.3 L (3.5-5.0) g/dL Urine Color Yellow Urine Appearance Clear (Clear) Urine pH 6.0 (5.0-8.0) Ur Specific [place] 1.025 (1.001-1.035) Urine Protein Trace H (Negative) Urine Glucose (UA) Negative (Negative) Urine Ketones Negative (Negative) Urine Blood Negative (Negative) Urine Nitrite Negative (Negative) Urine Bilirubin Negative (Negative) Urine Urobilinogen <2.0 (<2.0) mg/dL Ur Leukocyte Esterase Negative (Negative) Disposition Clinical Impression: Abnormal leg movement, Light headedness Disposition: HOME SELF-CARE Condition: Stable Instructions (If sedation given, give patient instructions): Muscle Spasm (ED) Additional Instructions: Please return to the Emergency Department if symptoms worsen or any other concerns. Trial of muscle relaxer. If symptoms persist. Follow-up with PCP as discussed. Prescriptions: Cyclobenzaprine [Flexeril] 5 mg PO BID #10 tablet Is patient prescribed a controlled substance at d/c from ED?: No Referrals: Jennifer Robert III, MD [Primary Care Provider] - 1-2 days
[2019-07-19 14:26] LABS: Appearance,Urine Clear (Clear); Bilirubin,Urine Negative (Negative); Blood,Urine Negative (Negative); Color,Urine Yellow; Glucose,Urine (UA) Negative (Negative); Ketones,Urine Negative (Negative); Leukocyte Esterase,Urine Negative (Negative); Nitrite,Urine Negative (Negative); Protein,Urine Trace (Negative); Specific Gravity,Urine 1.025 (1.001-1.035); Urobilinogen,Urine <2.0 mg/dL (<2.0)
[2019-07-19 14:28] LABS: Platelet Count 750 k/uL (150-450)
[2019-07-19 14:31] LABS: ALT 24 U/L (9-52); AST 19 U/L (14-36); African American GFR (CKD) >90 (>60 ml/min/1.73 sqM); Albumin 3.3 g/dL (3.5-5.0); Alkaline Phosphatase 74 U/L (38-126); Anion Gap 9 mmol/L; Blood Urea Nitrogen 19 mg/dL (7-17); Calcium 8.5 mg/dL (8.4-10.2); Carbon Dioxide 25 mmol/L (22-30); Chloride 103 mmol/L (98-107); Glucose 100 mg/dL (74-99); Potassium 3.5 mmol/L (3.5-5.1); Sodium 137 mmol/L (137-145); Total Bilirubin 0.3 mg/dL (0.2-1.3); Total Protein 6.1 g/dL (6.3-8.2)
[2019-07-19 16:06] VITALS: BP 148/80; PULSE 91; RESP 20; TEMP 98
== END 2019-07-19 16:07 | disposition home or self-care (01) ==
LOC: EC 12:56
DX: R42 Dizziness and giddiness (principal); R25.9 Unspecified abnormal involuntary movements; L53.9 Erythematous condition, unspecified; E78.5 Hyperlipidemia, unspecified; I10 Essential (primary) hypertension; F32.9 Major depressive disorder, single episode, unspecified; F41.9 Anxiety disorder, unspecified; Z98.890 Other specified postprocedural states; Z87.891 Personal history of nicotine dependence; Z88.1 Allergy status to other antibiotic agents; Z79.899 Other long term (current) drug therapy
CPT/HCPCS: 36415; 80053; 81003; 85025; 93005; 96360; 96361; 99285

== ENCOUNTER 2019-07-22 11:57 | Inpatient (IN) | payer OTHER ==
--- NOTE | 2019-07-22 13:44 | ED ---
Recheck HPI <Darion Skaggs - Last Filed: 07/22/19 14:06> - General Source: patient Mode of arrival: ambulatory Limitations: no limitations <Tamiko Wetzel - Last Filed: 07/22/19 14:16> - General Chief Complaint: Recheck/Abnormal Lab/Rx Stated Complaint: infected incision Time Seen by Provider: 07/22/19 12:23 - History of Present Illness Initial Comments: Patient is a 54-year-old female presenting to the emergency Department with complaints of a possible infection of her incision area. Patient has an incisional hernia repair done by Dr. Cloud on 07/04/2019. Patient states last 2 days she has noticed an odor coming from her wound as well as increased in yellow discharge and color changing from slightly red to a more black color. Patient denies fever, chills, nausea, vomiting. Patient states she is a little bit more tender around her incision then she was the past week. Patient did c all Dr. Cloud's office who told her to come into the ER for evaluation since he is nutrition aide today. Patient does have follow-up appointment with him tomorrow in his office. Patient has no other complaints at this time. Upon arrival to ER, vital signs are stable, afebrile. (Tamiko Wetzel) - Related Data Home Medications Medication Instructions Recorded Confirmed Ibuprofen [Motrin] 800 mg PO Q8HR PRN 07/03/14 07/19/19 Lisinopril-Hctz 10-12.5 mg 1 tab PO HS 07/03/14 07/19/19 [Zestoretic 10-12.5] Simvastatin [Zocor] 10 mg PO HS 07/03/14 07/19/19 traMADol HCl [Ultram] 50 mg PO Q12H PRN 07/03/14 07/19/19 ALPRAZolam [Xanax] 0.25 mg PO BID PRN 03/11/19 07/19/19 Albuterol Sulfate [Proair Hfa] 2 puff INHALATION RT-Q6H PRN 03/11/19 07/19/19 FLUoxetine HCL [PROzac] 80 mg PO HS 03/11/19 07/19/19 Multivitamins, Thera [Multivitamin 1 tab PO DAILY 03/11/19 07/19/19 (formulary)] Oxybutynin Chloride [Oxybutynin 15 mg PO HS 03/11/19 07/19/19 Chloride ER] Triamterene-Hctz 37.5-25Mg 1 cap PO DAILY PRN 07/02/19 07/19/19 [Dyazide 37.5-25 Capsule] Acetaminophen-Codeine 300-30mg 1 tab PO Q4-6H PRN 07/19/19 07/19/19 [Tylenol w/codeine #3] Previous Rx's Medication Instructions Recorded Cyclobenzaprine [Flexeril] 5 mg PO BID #10 tablet 07/19/19 Allergies Allergy/AdvReac Type Severity Reaction Status Date / Time cephalexin monohydrate Allergy Rash/Hives Verified 07/22/19 12:21 [From [facility]] Review of Systems ROS Other: All systems not noted in ROS Statement are negative. <Darion Skaggs - Last Filed: 07/22/19 14:06> ROS Other: All systems not noted in ROS Statement are negative. <Tamiko Wetzel - Last Filed: 07/22/19 14:16> ROS Statement: Those systems with pertinent positive or pertinent negative responses have been documented in the HPI. 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 Past Anesthesia/Blood Transfusion Reactions: Postoperative Nausea & Vomiting (PONV) Past Psychological History: Anxiety, Depression Smoking Status: Former smoker Past Alcohol Use History: Occasional Past Drug Use History: None Reported - Past Family History Father Family Medical History: CVA/TIA Additional Family Medical History / Comment(s): AT 49 Mother Family Medical History: Myocardial Infarction ([place]) Additional Family Medical History / Comment(s): AT 57 <Tamiko Wetzel - Last Filed: 07/22/19 14:16> General Exam Limitations: no limitations <Tamiko Wetzel - Last Filed: 07/22/19 14:16> - General Exam Comments Initial Comments: GENERAL: Well-appearing, well-nourished and in no acute distress. HEAD: Atraumatic, normocephalic. EYES: Pupils equal round and reactive to light, extraocular movements intact, sclera anicteric, conjunctiva are normal. ENT: TMs normal, nares patent, oropharynx clear without exudates. Moist mucous membranes. NECK: Normal range of motion, supple without lymphadenopathy or JVD. LUNGS: Breath sounds clear to auscultation bilaterally and equal. No wheezes rales or rhonchi. HEART: Regular rate and rhythm without murmurs, rubs or gallops. ABDOMEN: Patient has large incision from her umbilicus to suprapubic area with dona present. There is erythema and bruising surrounding the incision, as well as induration surrounding both sides of the wound. There is active yellow colored discharge. There is some neurotic tissue present and wound deshesion. Rest of abdomen is soft, nontender, normoactive bowel sounds. No guarding, no rebound. No masses appreciated. : Deferred EXTREMITIES: Normal range of motion, no pitting or edema. No clubbing or cyanosis. NEUROLOGICAL: Cranial nerves II through XII grossly intact. Normal speech. PSYCH: Normal mood, normal affect. SKIN: Warm, Dry, normal turgor, no rashes. As described above. (Tamiko Wtezel) Course Vital Signs 07/22/19 12:19 Temperature 99.2 F Pulse Rate 73 Respiratory 16 Rate Blood Pressure 143/90 O2 Sat by Pulse 95 Oximetry Medical Decision Making <Darion Skaggs - Last Filed: 07/22/19 14:06> <Tamiko Wetzel - Last Filed: 07/22/19 14:16> - Medical Decision Making Patient was reevaluated by myself, Dr. Skaggs. Patient resting comfortably in bed. Patient does have a large abdominal vertical incision with some black discoloration of the skin. There is trace appearance of early dehiscence of the upper wound. There is some mild swelling. Patient states she does notice. P atient also states there is been some mild purulent discharge. Case was discussed in detail with Dr. Cloud who did come evaluate patient and will admit. (Darion Skaggs) Patient is a 54-year-old female presenting with a possible infection from her incisional hernia repair. It was performed on 07/04/2019. Patient denies fever, chills, nausea, vomiting. Patient has a large vertical abdominal incision from her umbilicus to suprapubic area. The wound is erythematous, surrounding induration as well as black discoloration of the tissue. There is some active yellow drainage and wound dishesion. Vitals are stable. Case discussed with Dr. Skaggs. Dr. Cloud did come down and evaluate the patient and patient will be admitted and will be started on IV antibiotics. (Tamiko Wetzel) Disposition <Darion Skaggs - Last Filed: 07/22/19 14:06> Is patient prescribed a controlled substance at d/c from ED?: No Decision Date: 07/22/19 Decision Time: 14:13 <Tamiko Wetzel - Last Filed: 07/22/19 14:16> Clinical Impression: Wound infection after surgery Disposition: ADMITTED IP TO THIS HOSP Condition: Stable Referrals: Jennifer Robert III, MD [Primary Care Provider] - 1-2 days
[2019-07-22] MEDS ORDERED: NALOXONE 0.4 MG/ML 1 ML VIAL IV PRN (14:07)
[2019-07-22] MEDS ORDERED: ONDANSETRON 4 MG/2 ML VIAL IVP PRN (14:07)
[2019-07-22] MEDS ORDERED: ACETAMINOPHEN TAB 325 MG TAB PO PRN (14:07)
[2019-07-22] MEDS ORDERED: PIPERACILLIN-TAZOBACTAM 3.375 GM in SODIUM CHLORIDE 0.9% 100 ML IVPB STA (14:08)
[2019-07-22 14:18] LABS: Basophils # (A) 0.2 k/uL (0-0.2); Basophils % (A) 1 %; Eosinophils # (A) 0.4 k/uL (0-0.7); Eosinophils % (A) 3 %; HCT 31.8 % (34.0-46.0); HGB 10.6 gm/dL (11.4-16.0); Lymphocytes % (A) 18 %; MCH 30.5 pg (25.0-35.0); MCHC 33.5 g/dL (31.0-37.0); MCV 90.9 fL (80.0-100.0); Mean Platelet Volume 5.6; Monocytes % (A) 9 %; Neutrophils # (A) 7.4 k/uL (1.3-7.7); Neutrophils % (A) 67 %; Platelet Count 681 k/uL (150-450); RBC 3.49 m/uL (3.80-5.40); RDW 12.3 % (11.5-15.5); WBC 11.1 k/uL (3.8-10.6)
[2019-07-22 14:19] LABS: ALT 38 U/L (9-52); AST 30 U/L (14-36); African American GFR (CKD) >90 (>60 ml/min/1.73 sqM); Albumin 2.8 g/dL (3.5-5.0); Alkaline Phosphatase 71 U/L (38-126); Anion Gap 7 mmol/L; Blood Urea Nitrogen 14 mg/dL (7-17); Calcium 8.2 mg/dL (8.4-10.2); Carbon Dioxide 25 mmol/L (22-30); Chloride 103 mmol/L (98-107); Glucose 104 mg/dL (74-99); Potassium 3.7 mmol/L (3.5-5.1); Sodium 135 mmol/L (137-145); Total Bilirubin 0.5 mg/dL (0.2-1.3); Total Protein 5.5 g/dL (6.3-8.2)
[2019-07-22] MEDS: SODIUM CHLORIDE 0.9% 1,000 ML IV SCH (15:03)
[2019-07-22] MEDS ORDERED: TRIAMTERENE-HCTZ 37.5-25MG 1 EACH CAP PO PRN (15:52)
[2019-07-22] MEDS ORDERED: Acetaminophen-Codeine 300-30mg TAB PO PRN (15:52)
[2019-07-22] MEDS: HEPARIN SODIUM,PORCINE 5,000 UNIT/ML 1 ML VIAL SQ SCH (16:12)
[2019-07-22] MEDS: HYDROcodone/APAP 5-325MG 1 EACH TAB PO PRN (17:38)
[2019-07-22] MEDS: CYCLOBENZAPRINE 5 MG TAB PO SCH (20:27)
[2019-07-22] MEDS: OXYBUTYNIN 15 MG TAB.ER.24 PO SCH (20:27)
[2019-07-22] MEDS: PIPERACILLIN-TAZOBACTAM 3.375 GM in SODIUM CHLORIDE 0.9% 100 ML IVPB SCH (20:27)
[2019-07-22] MEDS: FLUoxetine HCL 20 MG CAP PO SCH (20:27)
[2019-07-22] MEDS: LISINOPRIL-HCTZ 10-12.5 MG 1 EACH TAB PO SCH (20:28)
[2019-07-22] MEDS: ATORVASTATIN 10 MG TAB PO SCH (20:28)
[2019-07-23] MEDS: HEPARIN SODIUM,PORCINE 5,000 UNIT/ML 1 ML VIAL SQ SCH ×4 (00:07→23:09)
[2019-07-23] MEDS: HYDROcodone/APAP 5-325MG 1 EACH TAB PO PRN ×4 (00:12→20:05)
[2019-07-23] MEDS: PIPERACILLIN-TAZOBACTAM 3.375 GM in SODIUM CHLORIDE 0.9% 100 ML IVPB SCH ×3 (05:43→21:09)
[2019-07-23] MEDS: CYCLOBENZAPRINE 5 MG TAB PO SCH ×2 (07:33→19:58)
[2019-07-23] MEDS: PANTOPRAZOLE 40 MG/10 ML VIAL IVP SCH (07:33)
[2019-07-23] MEDS: SODIUM CHLORIDE 0.9% 1,000 ML IV SCH ×2 (07:34→19:58)
--- NOTE | 2019-07-23 16:42 | P.GSHP ---
History of Present Illness H&P Date: 07/23/19 Chief Complaint: post op CHIEF COMPLAINT: post op HISTORY OF PRESENT ILLNESS: 54-year-old female who recently underwent repair of recurrent incarcerated incisional hernia with mesh on 07/04/[address] Cloud. Patient presented to the emergency room with a complaint of black discoloration and drainage to her wound. Patient reports increased tenderness to incision. She denies fever or chills. PAST MEDICAL HISTORY: See list. PAST SURGICAL HISTORY: See list. SOCIAL HISTORY: No illicit drug use. REVIEW OF SYSTEMS: CONSTITUTIONAL: Denies fever or chills. HEENT: Denies blurred vision, vision changes, or eye pain. Denies hemoptysis CARDIOVASCULAR: Denies chest pain or pressure. RESPIRATORY: No shortness of breath. GASTROINTESTINAL: Refer to [facility] for pertinent findings HEMATOLOGIC: Denies bleeding disorders. GENITOURINARY: Denies any blood in urine. SKIN: Denies pruitis. Denies rash. PHYSICAL EXAM: VITAL SIGNS: Reviewed. GENERAL: Well-developed in no acute distress. HEENT: No sclera icterus. Extraocular movements grossly intact. Moist buccal mucosa. Head is atraumatic, normocephalic. ABDOMEN: Obese. Soft. Nondistended. Midline incision with dona with ne crotic tissue to majority of incision line. Firmness of surrounding tissue to bilateral lower aspects of incision. NEUROLOGIC: Alert and oriented. Cranial nerves II through XII grossly intact. LABORATORY DATA: WBC 11.1. Hemoglobin 10.6. Platelet count 181. ASSESSMENT: 1. Recent repair of recurrent incarcerated incisional hernia with mesh on 07/04/2019 2. Skin and fat ischemia with necrotic tissue of abdomen PLAN: 1. Consult Dr. Zamora for evaluation. Continue IV antibiotics 2. Patient to undergo debridement of abdominal wound tomorrow with Dr. Cloud 3. Patient will require wound vac postoperatively Nurse practitioner note has been reviewed by physician. Signing provider agrees with the documented findings, assessment, and plan of care. 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 Past Drug Use History: None Reported - Past Family History Father Family Medical History: CVA/TIA Additional Family Medical History / Comment(s): AT 49 Mother Family Medical History: Myocardial Infarction ([place]) Additional Family Medical History / Comment(s): AT 57 Medications and Allergies Home Medications Medication Instructions Recorded Confirmed Type Ibuprofen [Motrin] 800 mg PO Q8HR PRN 07/03/14 07/22/19 History Lisinopril-Hctz 10-12.5 mg 1 tab PO HS 07/03/14 07/22/19 History [Zestoretic 10-12.5] Simvastatin [Zocor] 10 mg PO HS 07/03/14 07/22/19 History traMADol HCl [Ultram] 50 mg PO Q12H PRN 07/03/14 07/22/19 History ALPRAZolam [Xanax] 0.25 mg PO BID PRN 03/11/19 07/22/19 History Albuterol Sulfate [Proair Hfa] 2 puff INHALATION RT-Q6H PRN 03/11/19 07/22/19 History FLUoxetine HCL [PROzac] 80 mg PO HS 03/11/19 07/22/19 History Multivitamins, Thera [Multivitamin 1 tab PO HS 03/11/19 07/22/19 History (formulary)] Oxybutynin Chloride [Oxybutynin 15 mg PO HS 03/11/19 07/22/19 History Chloride ER] Triamterene-Hctz 37.5-25Mg 1 cap PO DAILY PRN 07/02/19 07/22/19 History [Dyazide 37.5-25 Capsule] Acetaminophen-Codeine 300-30mg 1 tab PO Q4-6H PRN 07/19/19 07/22/19 History [Tylenol w/codeine #3] Cyclobenzaprine [Flexeril] 5 mg PO BID #10 tablet 07/19/19 07/22/19 Rx Allergies Allergy/AdvReac Type Severity Reaction Status Date / Time cephalexin monohydrate Allergy Rash/Hives Verified 07/22/19 14:23 [From [employer]] Surgical - Exam Vital Signs Temp Pulse Resp BP Pulse Ox 99.2 F 73 16 143/90 95 07/22/19 12:19 07/22/19 12:19 07/22/19 12:19 07/22/19 12:19 07/22/19 12:19 Results - Labs 07/22/19 13:53 07/22/19 13:53 Microbiology - Last 24 Hours (Table) 07/22/19 13:31 Gram Stain - Preliminary Abdomen Wound Culture - Preliminary
--- NOTE | 2019-07-23 18:22 | CT ---
EXAMINATION TYPE: CT brain wo con DATE OF EXAM: 07/23/2019 COMPARISON: None HISTORY: Jaw twitching and tremors. CT DLP: 1121 mGycm Automated exposure control for dose reduction was used. FINDINGS: Ventricles have normal size. There is no mass effect nor midline shift. There is no sign of intracran ial hemorrhage. The calvarium is intact. There is cerebral cortical atrophy. IMPRESSION: NO ACUTE INTRACRANIAL ABNORMALITY. MILD CEREBRAL ATROPHY.
[2019-07-23] MEDS: FLUoxetine HCL 20 MG CAP PO SCH (19:57)
[2019-07-23] MEDS: OXYBUTYNIN 15 MG TAB.ER.24 PO SCH (19:58)
[2019-07-23] MEDS: LISINOPRIL-HCTZ 10-12.5 MG 1 EACH TAB PO SCH (19:58)
[2019-07-23] MEDS: ATORVASTATIN 10 MG TAB PO SCH (19:58)
--- NOTE | 2019-07-24 00:02 | P.CONS ---
History of Present Illness - Reason for Consult Consult date: 07/23/19 Medical management - Chief Complaint Abdominal wound infection - History of Present Illness Patient is a 54-year-old female with a known history of hypertension, hyperlipidemia, GERD and recent surgery with repair of recurrent incarcerated incisional hernia with mesh on 07/04/2019 came to ER with the complaints of possible infection of the incision area.Patient states last 2 days she has noticed an odor coming from her wound as well as increased in yellow discharge and color changing from slightly red to a more black color. Patient denies fever, chills, nausea, vomiting. Patient states she is a little bit more tender around her incision then she was the past week. Patient did call Dr. Cloud's office who told her to come into the ER for evaluation.Patient does have follow- up appointment with him tomorrow in his office. Patient has been afebrile. Denied any chills. No complains of chest pain or shortness of breath. As per the patient and her family, patient has been having jerky movements of the upper extremities while she was sleeping and also having lipsmacking and involuntary movements. Patient's family is concerned about possible seizures which is unlikely at this time. No history of prior head injury. No history of seizures in the past. Review of Systems Constitutional: Patient denies any fever or chills . No generalized weakness or weight loss. Abdomen: Patient denied nausea vomiting and diarrhea and abdominal pain. Cardiovascular: Patient denies any chest pain or short of breath no palpitations. Respiratory: patient denied any cough is from production. No shortness of breath Neurologic: Patient denied any numbness or tingling headache. Musculoskeletal: Patient denies any complaints of joint swelling or deformity. Skin: Abdominal surgical wound discoloration and minimal discharge. Psychiatric: Negative Endocrine: No heat or cold intolerance. No recent weight gain. Genitourinary: No dysuria or hematuria. 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 Past Drug Use History: None Reported - Past Family History Father Family Medical History: CVA/TIA Additional Family Medical History / Comment(s): AT 49 Mother Family Medical History: Myocardial Infarction ([place]) Additional Family Medical History / Comment(s): AT 57 Medications and Allergies Home Medications Medication Instructions Recorded Confirmed Type Ibuprofen [Motrin] 800 mg PO Q8HR PRN 07/03/14 07/22/19 History Lisinopril-Hctz 10-12.5 mg 1 tab PO HS 07/03/14 07/22/19 History [Zestoretic 10-12.5] Simvastatin [Zocor] 10 mg PO HS 07/03/14 07/22/19 History traMADol HCl [Ultram] 50 mg PO Q12H PRN 07/03/14 07/22/19 History ALPRAZolam [Xanax] 0.25 mg PO BID PRN 03/11/19 07/22/19 History Albuterol Sulfate [Proair Hfa] 2 puff INHALATION RT-Q6H PRN 03/11/19 07/22/19 History FLUoxetine HCL [PROzac] 80 mg PO HS 03/11/19 07/22/19 History Multivitamins, Thera [Multivitamin 1 tab PO HS 03/11/19 07/22/19 History (formulary)] Oxybutynin Chloride [Oxybutynin 15 mg PO HS 03/11/19 07/22/19 History Chloride ER] Triamterene-Hctz 37.5-25Mg 1 cap PO DAILY PRN 07/02/19 07/22/19 History [Dyazide 37.5-25 Capsule] Acetaminophen-Codeine 300-30mg 1 tab PO Q4-6H PRN 07/19/19 07/22/19 History [Tylenol w/codeine #3] Cyclobenzaprine [Flexeril] 5 mg PO BID #10 tablet 07/19/19 07/22/19 Rx Allergies Allergy/AdvReac Type Severity Reaction Status Date / Time cephalexin monohydrate Allergy Rash/Hives Verified 07/22/19 14:23 [From Keflex] Physical Exam Vitals: Vital Signs Temp Pulse Resp BP Pulse Ox 07/23/19 15:58 16 07/23/19 15:00 99.4 F 77 16 121/74 95 07/23/19 04:31 99.2 F 78 17 108/70 95 07/22/19 20:49 99.0 F 65 18 106/70 98 Intake and Output 07/23/19 07/23/19 07/23/19 06:59 14:59 22:59 Other: # Voids 1 3 PHYSICAL EXAMINATION: Patient is lying in the bed comfortably, no acute distress, awake alert and oriented.. HEENT: Normocephalic. Neck is supple. Pupils reactive. Nostrils clear. Oral cavity is moist. Ears reveal no drainage. Neck reveals no JVD, carotid bruits, or thyromegaly. CHEST EXAMINATION: Trachea is central. Symmetrical expansion. Lung beasley clear to auscultation and percussion. CARDIAC: Normal S1, S2 with no gallops. No murmurs ABDOMEN: Soft. Midline surgical wound with dark discoloration and no drainage noted at this time. Mild tenderness. minimal warmth. Bowel sounds normal. No organomegaly. No abdominal bruits. Extremities: reveal no edema. No clubbing or cyanosis Neurologically awake, alert, oriented x3 with well-coordinated movements. No focal deficits noted Skin: No rash or skin lesions. Psychiatric: Coperative. Nonsuicidal Musculoskeletal: No joint swelling or deformity. Normal range of motion. Results CBC & Chem 7: 07/22/19 13:53 07/22/19 13:53 Labs: Microbiology - Last 24 Hours (Table) 07/22/19 13:31 Gram Stain - Preliminary Abdomen Wound Culture - Preliminary Assessment and Plan Assessment: Incisional wound skin and fat tissue discoloration. Possible necrotizing wound infection Status post repair of recurrent incarcerated incisional hernia with mesh on 07/04/2019 Hypertension controlled Hyperlipidemia GERD History of gastric bypass surgery Anxiety/depression Previous history of smoking DVT prophylaxis with heparin subcu Plan: Patient will be continued on IV hydration gently and antibiotics in the form of Zosyn will be continued. General surgery is planning for or for debridement in the next 24 hours. Follow-up culture reports. Continue the home medications and further recommendations based on the clinical course. We will continue to follow with you. Thank you for your consult. Time with Patient: Greater than 30
--- NOTE | 2019-07-24 00:19 | P.CONS ---
History of Present Illness - Reason for Consult Consult date: 07/23/19 Abdominal wall cellulitis Requesting physician: Jose G Cloud - Chief Complaint Abdominal incision pain swelling and discoloration x few days - History of Present Illness Patient is a 54-year-old female who recently did have extensive surgery done for repair of recurrent incarcerated incisional hernia with a mesh on 07/04/2019 by , patient did well postoperatively however the last few days the patient has noticed erythema and discoloration along her midline abdominal incision patient has been complaining of pain which has been sharp in nature with intensity at times could be almost 10 out of 10 in severity should be complaining of some foul-smelling drainage and minimal in amount did have some chills but denies high-grade fever with these symptoms and the patient presented to the hospital she has been diagnosed with possible ischemia to the incisional area patient did not have high-grade fever or white count was 11,000 she has some local wound cultures obtained she was started on Zosyn and [facility] infectious disease was consulted for further recommendation regarding antibiotic therapy Review of Systems Positive point has been mentioned in the HPI rest of the systems are negative 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 Past Drug Use History: None Reported - Past Family History Father Family Medical History: CVA/TIA Additional Family Medical History / Comment(s): AT 49 Mother Family Medical History: Myocardial Infarction ([place]) Additional Family Medical History / Comment(s): AT 57 Medications and Allergies Home Medications Medication Instructions Recorded Confirmed Type Ibuprofen [Motrin] 800 mg PO Q8HR PRN 07/03/14 07/22/19 History Lisinopril-Hctz 10-12.5 mg 1 tab PO HS 07/03/14 07/22/19 History [Zestoretic 10-12.5] Simvastatin [Zocor] 10 mg PO HS 07/03/14 07/22/19 History traMADol HCl [Ultram] 50 mg PO Q12H PRN 07/03/14 07/22/19 History ALPRAZolam [Xanax] 0.25 mg PO BID PRN 03/11/19 07/22/19 History Albuterol Sulfate [Proair Hfa] 2 puff INHALATION RT-Q6H PRN 03/11/19 07/22/19 History FLUoxetine HCL [PROzac] 80 mg PO HS 03/11/19 07/22/19 History Multivitamins, Thera [Multivitamin 1 tab PO HS 03/11/19 07/22/19 History (formulary)] Oxybutynin Chloride [Oxybutynin 15 mg PO HS 03/11/19 07/22/19 History Chloride ER] Triamterene-Hctz 37.5-25Mg 1 cap PO DAILY PRN 07/02/19 07/22/19 History [Dyazide 37.5-25 Capsule] Acetaminophen-Codeine 300-30mg 1 tab PO Q4-6H PRN 07/19/19 07/22/19 History [Tylenol w/codeine #3] Cyclobenzaprine [Flexeril] 5 mg PO BID #10 tablet 07/19/19 07/22/19 Rx Allergies Allergy/AdvReac Type Severity Reaction Status Date / Time cephalexin monohydrate Allergy Rash/Hives Verified 07/22/19 14:23 [From Keflex] Physical Exam Vitals: Vital Signs Temp Pulse Pulse Pulse Resp BP BP 07/23/19 04:31 99.2 F 78 17 108/70 07/22/19 20:49 99.0 F 65 18 106/70 07/22/19 15:32 98.5 F 65 14 108/75 07/22/19 15:10 98.1 F 60 18 133/58 07/22/19 12:19 99.2 F 73 16 143/90 Pulse Ox 07/23/19 04:31 95 07/22/19 20:49 98 07/22/19 15:32 96 07/22/19 15:10 97 07/22/19 12:19 95 Intake and Output 07/22/19 07/23/19 07/23/19 22:59 06:59 14:59 Other: # Voids 2 1 GENERAL DESCRIPTION: Middle-aged female lying in bed, no distress. No tachypnea or accessory muscle of respiration use. HEENT: Shows Pallor , no scleral icterus. Oral mucous membrane is dry. No pharyngeal erythema or thrush NECK: Trachea central, no thyromegaly. LUNGS: Unlabored breathing. Clear to auscultation anteriorly. No wheeze or crackle. HEART: S1, S2, regular rate and rhythm. No loud murmur ABDOMEN: Soft, extensive midline incision did have necrosis from the staple line with surrounding erythema and induration did have mild tenderness , guarding or rigidity, no organomegaly EXTREMITIES: No edema of feet. SKIN: No rash, no masses palpable. NEUROLOGICAL: The patient is awake, alert, oriented x3, mood and affect normal. Results CBC & Chem 7: 07/22/19 13:53 07/22/19 13:53 Labs: Abnormal Lab Results - Last 24 Hours (Table) 07/22/19 07/22/19 Range/Units 13:53 13:53 WBC 11.1 H (3.8-10.6) k/uL RBC 3.49 L (3.80-5.40) m/uL Hgb 10.6 L (11.4-16.0) gm/dL Hct 31.8 L (34.0-46.0) % Plt Count 681 H (150-450) k/uL Sodium 135 L (137-145) mmol/L Creatinine 0.47 L (0.52-1.04) mg/dL Glucose 104 H (74-99) mg/dL Calcium 8.2 L (8.4-10.2) mg/dL Total Protein 5.5 L (6.3-8.2) g/dL Albumin 2.8 L (3.5-5.0) g/dL Microbiology - Last 24 Hours (Table) 07/22/19 13:31 Gram Stain - Preliminary Abdomen Wound Culture - Preliminary Assessment and Plan Assessment: 1-patient presented to hospital with abdominal incision discoloration in this patient with likely component of ischemia with cellulitis not likely but not entirely excluded with concern for possible gram-positive skin braden however enteric gram-negative pathogen not entirely excluded 2-patient with cephalexin ALLERGIES limiting the number of antibiotics safe to use Plan: 1-await surgical debridement in a.m. and deep culture if any evidence of present illness this was discussed with the surgery 2 Zosyn 3.375 g every 8 hours 3- marked the area of the redness and induration We will follow on clinical condition and cultures to further adjust medication if needed Thank you for this consultation will follow this patient with you Time with Patient: Greater than 30
[2019-07-24] MEDS: PIPERACILLIN-TAZOBACTAM 3.375 GM in SODIUM CHLORIDE 0.9% 100 ML IVPB SCH ×3 (05:32→22:49)
[2019-07-24] MEDS: HEPARIN SODIUM,PORCINE 5,000 UNIT/ML 1 ML VIAL SQ SCH ×2 (07:54→15:13)
[2019-07-24] MEDS: PANTOPRAZOLE 40 MG/10 ML VIAL IVP SCH (07:58)
[2019-07-24] MEDS: CYCLOBENZAPRINE 5 MG TAB PO SCH ×2 (07:58→21:21)
[2019-07-24 09:42] LABS: Basophils # (A) 0.2 k/uL (0-0.2); Basophils % (A) 2 %; Eosinophils # (A) 0.2 k/uL (0-0.7); Eosinophils % (A) 1 %; HCT 29.6 % (34.0-46.0); HGB 9.6 gm/dL (11.4-16.0); Hypochromasia Slight; Lymphocytes # (A) 1.6 k/uL (1.0-4.8); Lymphocytes % (A) 14 %; MCH 29.6 pg (25.0-35.0); MCHC 32.4 g/dL (31.0-37.0); MCV 91.4 fL (80.0-100.0); Mean Platelet Volume 5.6; Monocytes # (A) 0.9 k/uL (0-1.0); Monocytes % (A) 8 %; Neutrophils # (A) 8.5 k/uL (1.3-7.7); Neutrophils % (A) 74 %; Platelet Count 647 k/uL (150-450); RBC 3.24 m/uL (3.80-5.40); RDW 12.4 % (11.5-15.5); WBC 11.5 k/uL (3.8-10.6)
[2019-07-24 10:05] LABS: African American GFR (CKD) >90 (>60 ml/min/1.73 sqM); Anion Gap 7 mmol/L; Blood Urea Nitrogen 11 mg/dL (7-17); Carbon Dioxide 28 mmol/L (22-30); Chloride 100 mmol/L (98-107); Glucose 98 mg/dL (74-99); Potassium 3.2 mmol/L (3.5-5.1); Sodium 135 mmol/L (137-145)
--- NOTE | 2019-07-24 12:42 | PN ---
PROGRESS NOTE DATE OF SERVICE: 07/24/2019 REASON FOR FOLLOWUP: Abdominal wound ischemia with question of cellulitis. INTERVAL HISTORY: The patient did have a low-grade fever of 99.9 last night; however, that has improved as of this morning. The patient still complaining of pain to the abdominal wall incision site, but no worsening currently with no drainage. Denies having any chest pain, shortness of breath or cough and no diarrhea. PHYSICAL EXAMINATION: Blood pressure 104/67 with a pulse of 80, temperature 99.1. She is 93% on room air. General description is a middle-aged female up in the chair in no distress. RESPIRATORY SYSTEM: Unlabored breathing and is clear to auscultation. HEART: S1, S2. Regular rate and rhythm. ABDOMEN: Incision dona still intact. Still has some necrotic changes with surrounding redness, minimal induration, redness has not crossed the line that was placed yesterday. LABS: White count of 11.5. Abdominal cultures obtained so far pending. DIAGNOSTIC IMPRESSION AND PLAN: Patient with abdominal wall ischemia at the incision site with secondary cellulitis with concern for possible underlying hematoma for surgical evacuation today with the plan for obtaining culture and postoperative wound VAC. Coverage with Zosyn to continue adjusting antibiotic further based on the culture report. Continue supportive care. MMODL / IJN: [id number] /
[2019-07-24 13:47] VITALS: BMI 44.2
[2019-07-24] MEDS ORDERED: IV FLUID CONTINUATION 1,000 ML IV ONE (14:18)
[2019-07-24] MEDS ORDERED: IV FLUID CONTINUATION 100 ML IV ONE ×2 (15:20)
[2019-07-24] MEDS ORDERED: fentaNYL (PF) 50 MCG/ML 2 ML AMP ONE (15:27)
[2019-07-24] MEDS ORDERED: NEOSTIGMINE 1 MG/ML 10 ML VIAL ONE (15:27)
[2019-07-24] MEDS ORDERED: ROCURONIUM BROMIDE 10 MG/ML 10 ML VIAL IV ONE (15:27)
[2019-07-24] MEDS ORDERED: MIDAZOLAM 2 MG/2 ML VIAL ONE (15:27)
[2019-07-24] MEDS ORDERED: SUCCINYLCHOLINE CHLORIDE 100 MG/5 ML SYR IV ONE (15:27)
[2019-07-24] MEDS ORDERED: PROPOFOL 10 MG/ML 20 ML VIAL IV ONE (15:27)
[2019-07-24] MEDS ORDERED: GLYCOPYRROLATE 0.2 MG/ML 2 ML VIAL ONE (15:27)
[2019-07-24] MEDS ORDERED: HYDROmorphone (PF) 1 MG/ML ONE (15:27)
[2019-07-24] MEDS ORDERED: LIDOCAINE 1% INJ 10MG/ML (20 ML MDV) ONE (15:27)
[2019-07-24] MEDS ORDERED: LACTATED RINGERS 1,000 ML IV ONE (16:47)
--- NOTE | 2019-07-24 16:54 | EEG ---
ELECTROENCEPHALOGRAM REPORT DATE OF SERVICE: 07/24/2019. PREAMBLE: This is a 54-year-old female who has some jerks and tremors. This study is performed to rule out any epileptiform activity. CURRENT MEDICATIONS: 1. Lipitor. 2. Flexeril. 3. Prozac. 4. Zestoretic. 5. Oxybutynin. 6. Tramadol. EEG FINDINGS: A routine 21-channel awake digital EEG recording was accomplished utilizing the 10/20 international system with bipolar and referential montages. The background activity consists of well developed, well regulated, mixed frequency of 8 Hz alpha with 6-7 Hz theta and occasional delta activity. Background seems to be minimally reactive to eye opening and closing. Different stages of sleep were not seen. Photic driving response was not seen. Hyperventilation was not performed. No focal or generalized epileptiform activity was seen. IMPRESSION: This is an abnormal EEG due to mild background slowing. This is suggestive of generalized cerebral dysfunction, as can be seen with toxic metabolic encephalopathy or due to diffuse structural brain abnormality. No definite epileptiform activity was seen. MMODL / IJN: [id number] /
--- NOTE | 2019-07-24 16:57 | P.OP ---
Date of Procedure: 07/24/19 Preoperative Diagnosis: Abdominal wall skin and fat necrosis Postoperative Diagnosis: Abdominal wall fat and skin necrosis Infected seroma Infected mesh Procedure(s) Performed: Debridement of abdominal wall necrotic skin and fat Removal of mesh Anesthesia: YOHANA Surgeon: Jose G Cloud Estimated Blood Loss (ml): 50 Pathology: other (Mesh, abdominal wall skin and fat, wound culture and tissue culture) Condition: stable Disposition: PACU Description of Procedure: The patient's placed on the operative table in the supine position. She received general anesthesia. Her abdomen was prepped and draped usual sterile fashion. The SANDY drain was removed and the abdominal wall. The stapler removed. There was approximately 1 L of infected seroma which was aspirated from the abdominal wall. At this point the Vicryl suture was cut and then the mesh was exposed. The mesh appeared to be obviously infected. The skin and fat necrosis appeared to be along the central portion of the incision. Using a 15 blade the skin was incised and then using the electrocautery hemostasis achieved and then the subcutaneous fat was divided with the Enseal device. The specimen sent to pathology. The wound measured approximately 45 cm long by 27 cm wide and 15 cm deep. The Bovie hemostasis. The mesh was removed from the fascia using sharp dissection and sent to pathology. The superior and inferior portion of the incision was stapled and then the wound was packed with wet-to-dry Kerlix. The patient top she will well and was sent to recovery room stable condition.
[2019-07-24] MEDS: HYDROmorphone 0.5 MG/0.5 ML SYRINGE IVP PRN (18:12)
[2019-07-24] MEDS: SODIUM CHLORIDE 0.9% 1,000 ML IV SCH (18:14)
[2019-07-24] MEDS ORDERED: Potassium Replacement Protocol 1 EACH MISC MISCELLANE PRN (18:54)
[2019-07-24] MEDS: POTASSIUM CHLORIDE ER 20 MEQ TAB.ER PO SCH ×2 (21:21→22:50)
[2019-07-24] MEDS: OXYBUTYNIN 15 MG TAB.ER.24 PO SCH (21:21)
[2019-07-24] MEDS: LISINOPRIL-HCTZ 10-12.5 MG 1 EACH TAB PO SCH (21:21)
[2019-07-24] MEDS: ATORVASTATIN 10 MG TAB PO SCH (21:21)
[2019-07-24] MEDS: FLUoxetine HCL 20 MG CAP PO SCH (21:21)
[2019-07-24] MEDS: HYDROmorphone 1 MG/ML 1 ML SYRINGE IVP PRN (21:29)
[2019-07-25] MEDS: HEPARIN SODIUM,PORCINE 5,000 UNIT/ML 1 ML VIAL SQ SCH ×3 (00:26→16:08)
[2019-07-25] MEDS: HYDROmorphone 1 MG/ML 1 ML SYRINGE IVP PRN ×6 (01:32→22:20)
[2019-07-25] MEDS: PIPERACILLIN-TAZOBACTAM 3.375 GM in SODIUM CHLORIDE 0.9% 100 ML IVPB SCH ×3 (05:47→22:25)
[2019-07-25] MEDS: HYDROmorphone 0.5 MG/0.5 ML SYRINGE IVP PRN ×4 (08:48→22:17)
[2019-07-25] MEDS: SODIUM CHLORIDE 0.9% 1,000 ML IV SCH (09:01)
[2019-07-25] MEDS: PANTOPRAZOLE 40 MG/10 ML VIAL IVP SCH (09:01)
[2019-07-25] MEDS: CYCLOBENZAPRINE 5 MG TAB PO SCH ×2 (09:01→22:24)
[2019-07-25] MEDS ORDERED: KETOROLAC 30 MG/ML 1 ML VIAL IVP PRN (09:06)
[2019-07-25 09:56] LABS: Basophils # (A) 0.2 k/uL (0-0.2); Basophils % (A) 1 %; Eosinophils # (A) 0.2 k/uL (0-0.7); Eosinophils % (A) 2 %; HCT 30.9 % (34.0-46.0); HGB 10.1 gm/dL (11.4-16.0); Hypochromasia Slight; Lymphocytes # (A) 1.2 k/uL (1.0-4.8); Lymphocytes % (A) 10 %; MCH 30.3 pg (25.0-35.0); MCHC 32.8 g/dL (31.0-37.0); MCV 92.4 fL (80.0-100.0); Mean Platelet Volume 6.2; Monocytes # (A) 0.7 k/uL (0-1.0); Monocytes % (A) 6 %; Neutrophils # (A) 9.4 k/uL (1.3-7.7); Neutrophils % (A) 80 %; Platelet Count 731 k/uL (150-450); RBC 3.35 m/uL (3.80-5.40); RDW 12.7 % (11.5-15.5); WBC 11.9 k/uL (3.8-10.6)
[2019-07-25 10:14] LABS: African American GFR (CKD) >90 (>60 ml/min/1.73 sqM); Anion Gap 5 mmol/L; Blood Urea Nitrogen 13 mg/dL (7-17); Carbon Dioxide 27 mmol/L (22-30); Chloride 101 mmol/L (98-107); Glucose 171 mg/dL (74-99); Magnesium 2.1 mg/dL (1.6-2.3); Sodium 133 mmol/L (137-145)
[2019-07-25] MEDS: HYDROcodone/APAP 5-325MG 1 EACH TAB PO PRN (10:45)
--- NOTE | 2019-07-25 14:06 | P.PN ---
Subjective Progress Note Date: 07/25/19 CHIEF COMPLAINT: post op HISTORY OF PRESENT ILLNESS: Patient is status post debridement of abdominal wall necrotic skin and fascia and removal of mesh. Postoperative day #1. Patient reports her pain is uncontrolled this morning. Tolerating diet. Denies nausea or vomiting. DC 11.9. Hemoglobin 10.1. PHYSICAL EXAM: VITAL SIGNS: Reviewed. GENERAL: Well-developed in no acute distress. HEENT: No sclera icterus. Extraocular movements grossly intact. Moist buccal mucosa. Head is atraumatic, normocephalic. ABDOMEN: Obese. Soft. Nondistended. [place] to midline incision. Large open wound with packing noted. No necrosis. NEUROLOGIC: Alert and oriented. Cranial nerves II through XII grossly intact. ASSESSMENT: 1. Recent repair of recurrent incarcerated incisional hernia with mesh on 07/04/2019, status post debridement of abdominal wall necrotic skin and fascia and removal of mesh 2. Skin and fat ischemia with necrotic tissue of abdomen PLAN: 1. Continue IV antibiotics. Dr. Zamora on consult 2. Nursing to place wound VAC today. 3. Pain control. Continue IV Dilaudid. Add IV Toradol. Nurse practitioner note has been reviewed by physician. Signing provider agrees with the documented findings, assessment, and plan of care. Objective - Vital Signs Vital signs: Vital Signs Temp 98.6 F 07/25/19 12:50 Pulse 81 07/25/19 12:50 Resp 16 07/25/19 12:50 BP 98/64 07/25/19 13:37 Pulse Ox 93 L 07/25/19 12:50 Intake & Output 07/24/19 07/25/19 07/25/19 18:59 06:59 18:59 Intake Total 925 250 Output Total 240 Balance 685 250 Weight 124.284 kg Intake: IV 925 Oral 250 Output: Drainage 40 Left Upper Abdomen 40 Estimated Blood Loss 200 Other: Voiding Method Bedside Commode Bedside Commode # Voids 3 3 1 - Labs CBC & Chem 7: 07/25/19 09:11 07/25/19 09:11 Labs: Abnormal Lab Results - Last 24 Hours (Table) 07/25/19 07/25/19 Range/Units 09:11 09:11 WBC 11.9 H (3.8-10.6) k/uL RBC 3.35 L (3.80-5.40) m/uL Hgb 10.1 L (11.4-16.0) gm/dL Hct 30.9 L (34.0-46.0) % Plt Count 731 H (150-450) k/uL Neutrophils # 9.4 H (1.3-7.7) k/uL Sodium 133 L (137-145) mmol/L Glucose 171 H (74-99) mg/dL Calcium 8.0 L (8.4-10.2) mg/dL Microbiology - Last 24 Hours (Table) 07/24/19 16:45 Gram Stain - Preliminary Abdomen Wound Culture - Preliminary 07/24/19 16:45 Gram Stain - Preliminary Abdomen Tissue Culture - Preliminary 07/24/19 16:45 Anaerobic Culture - Preliminary Abdomen 07/24/19 16:45 Anaerobic Culture - Preliminary Abdomen 07/22/19 13:31 Gram Stain - Final Abdomen Wound Culture - Final
--- NOTE | 2019-07-25 17:07 | PN ---
PROGRESS NOTE DATE OF SERVICE: 07/25/2019 REASON FOR FOLLOWUP: Infected abdominal wound. INTERVAL HISTORY: The patient was taken to the OR yesterday. The patient is status post debridement of her wound. She was noted to have some purulent material. Her mesh has been removed as well. Cultures were obtained which are currently pending. The patient's abdominal pain is currently controlled. Denies having any chest pain, shortness of breath or cough. PHYSICAL EXAMINATION: Blood pressure is 98/64 with a pulse of 81, temperature 98.6. She is 93% on room air. General description is a middle-aged female lying in bed in no distress. RESPIRATORY SYSTEM: Unlabored breathing. Clear to auscultation anteriorly. HEART: S1, S2. Regular rate and rhythm. Abdominal wound has remains extensive. No significant slough tissue or any purulent drainage. LABS: White count of 11.9 with a BUN of 13, creatinine 0.61. The abdominal cultures are currently pending. DIAGNOSTIC IMPRESSION AND PLAN: Patient with ischemic abdominal incision with underlying infected mesh, status post removal of the mesh and debridement of the wound. The patient did have extensive abdominal wound and at this point will need a wound V.A.C. and outpatient antibiotic, possibly IV, depending upon the culture report. In view of her KEFLEX ALLERGY, currently she is covered with Zosyn. Monitor her clinical course closely. MMODL / IJN: [id number] /
[2019-07-25] MEDS: MELATONIN 3 MG TABLET PO SCH (22:17)
[2019-07-25] MEDS: FLUoxetine HCL 20 MG CAP PO SCH (22:24)
[2019-07-25] MEDS: ATORVASTATIN 10 MG TAB PO SCH (22:24)
[2019-07-25] MEDS: LISINOPRIL-HCTZ 10-12.5 MG 1 EACH TAB PO SCH (22:25)
[2019-07-25] MEDS: OXYBUTYNIN 15 MG TAB.ER.24 PO SCH (22:25)
--- NOTE | 2019-07-25 22:47 | P.PN ---
Subjective Progress Note Date: 07/24/19 Principal diagnosis: Skin and fat necrosis over the surgical sutures. Status post debridement. Patient is a 54-year-old female with a known history of hypertension, hyperlipidemia, GERD and recent surgery with repair of recurrent incarcerated incisional hernia with mesh on 07/04/2019 came to ER with the complaints of possible infection of the incision area.Patient states last 2 days she has noticed an odor coming from her wound as well as increased in yellow discharge and color changing from slightly red to a more black color. Patient denies fever, chills, nausea, vomiting. Patient states she is a little bit more tender around her incision then she was the past week. Patient did call Dr. Cloud's office who told her to come into the ER for evaluation.Patient does have follow- up appointment with him tomorrow in his office. Patient has been afebrile. Denied any chills. No complains of chest pain or shortness of breath. As per the patient and her family, patient has been having jerky movements of the upper extremities while she was sleeping and also having lipsmacking and involuntary movements. Patient's family is concerned about possible seizures which is unlikely at this time. No history of prior head injury. No history of seizures in the past. 07/24/[address] of the head showed no acute process. No abnormal movements noted overnight. EEG report is pending. Patient is status post Debridement of abdominal wall necrotic skin and fat. Follow-up culture reports. No fever no chills. WBC 11.5potassium 3.2 Patient be continued on antibiotics in the form of Zosyn. No complaints of chest pain or shortness of breath. Current medications reviewed. Objective - Vital Signs Vital signs: Vital Signs Temp 98.4 F 07/24/19 18:08 Pulse 83 07/24/19 18:08 Resp 16 07/24/19 18:08 BP 125/71 07/24/19 18:08 Pulse Ox 98 07/24/19 18:08 Intake & Output 07/24/19 07/24/19 07/25/19 06:59 18:59 06:59 Intake Total 925 Output Total 42 240 Balance -42 685 Weight 124.284 kg Intake: IV 925 Output: Drainage 40 40 Left Upper Abdomen 40 40 Urine 2 Estimated Blood Loss 200 Other: # Voids 1 3 - Exam PHYSICAL EXAMINATION: Patient is lying in the bed comfortably, no acute distress, awake alert and oriented.. HEENT: Normocephalic. Neck is supple. Pupils reactive. Nostrils clear. Oral cavity is moist. Ears reveal no drainage. Neck reveals no JVD, carotid bruits, or thyromegaly. CHEST EXAMINATION: Trachea is central. Symmetrical expansion. Lung beasley clear to auscultation and percussion. CARDIAC: Normal S1, S2 with no gallops. No murmurs ABDOMEN: Soft. Midline surgical wound with dark discoloration and no drainage noted at this time. Mild tenderness. minimal warmth. Bowel sounds normal. No organomegaly. No abdominal bruits. Extremities: reveal no edema. No clubbing or cyanosis Neurologically awake, alert, oriented x3 with well-coordinated movements. No focal deficits noted Skin: No rash or skin lesions. Psychiatric: Coperative. Nonsuicidal Musculoskeletal: No joint swelling or deformity. Normal range of motion. - Labs CBC & Chem 7: 07/25/19 09:11 07/25/19 09:11 Labs: Abnormal Lab Results - Last 24 Hours (Table) 07/24/19 07/24/19 Range/Units 08:52 08:52 WBC 11.5 H (3.8-10.6) k/uL RBC 3.24 L (3.80-5.40) m/uL Hgb 9.6 L (11.4-16.0) gm/dL Hct 29.6 L (34.0-46.0) % Plt Count 647 H (150-450) k/uL Neutrophils # 8.5 H (1.3-7.7) k/uL Sodium 135 L (137-145) mmol/L Potassium 3.2 L (3.5-5.1) mmol/L Creatinine 0.51 L (0.52-1.04) mg/dL Calcium 8.0 L (8.4-10.2) mg/dL Microbiology - Last 24 Hours (Table) 07/22/19 13:31 Gram Stain - Final Abdomen Wound Culture - Final Assessment and Plan Assessment: Incisional wound skin and fat tissue discoloration. Possible necrotizing wound infection. Status post Debridement of abdominal wall necrotic skin and fat on 07/24/2019 Status post repair of recurrent incarcerated incisional hernia with mesh on 07/04/2019 Abnormal shaking movements at night as per patient's family. None witnessed while in the hospital. CT head negative. Hypertension controlled Hyperlipidemia GERD History of gastric bypass surgery Anxiety/depression Previous history of smoking DVT prophylaxis with heparin subcu Plan: Patient will be continued on IV hydration gently and antibiotics in the form of Zosyn will be continued. Patient is status post debridement. Follow-up culture reports. Continue the home medications and further recommendations based on the clinical course. We will continue to follow with you. Thank you for your consult. Time with Patient: Greater than 30
--- NOTE | 2019-07-25 22:50 | P.PN ---
Subjective Progress Note Date: 07/25/19 Principal diagnosis: Skin and fat necrosis over the surgical sutures. Status post debridement. Patient is a 54-year-old female with a known history of hypertension, hyperlipidemia, GERD and recent surgery with repair of recurrent incarcerated incisional hernia with mesh on 07/04/2019 came to ER with the complaints of possible infection of the incision area.Patient states last 2 days she has noticed an odor coming from her wound as well as increased in yellow discharge and color changing from slightly red to a more black color. Patient denies fever, chills, nausea, vomiting. Patient states she is a little bit more tender around her incision then she was the past week. Patient did call Dr. Cloud's office who told her to come into the ER for evaluation.Patient does have follow- up appointment with him tomorrow in his office. Patient has been afebrile. Denied any chills. No complains of chest pain or shortness of breath. As per the patient and her family, patient has been having jerky movements of the upper extremities while she was sleeping and also having lipsmacking and involuntary movements. Patient's family is concerned about possible seizures which is unlikely at this time. No history of prior head injury. No history of seizures in the past. 07/24/[address] of the head showed no acute process. No abnormal movements noted overnight. EEG report is pending. Patient is status post Debridement of abdominal wall necrotic skin and fat. Follow-up culture reports. No fever no chills. WBC 11.5potassium 3.2 Patient be continued on antibiotics in the form of Zosyn. No complaints of chest pain or shortness of breath. 07/25/2019 Patient does not have any fever or chills. Tolerating oral diet. Status post debridement of necrotic tissue and removal of mesh. Wound VAC will be placed. Cultures pending. Patient had EEG done showed mostly encephalopathic like picture. No epileptiform wears are noted. No complaints of chest pain or shortness of breath. No nausea vomiting. Continued on IV Zosyn. ID is following. Current medications reviewed. Objective - Vital Signs Vital signs: Vital Signs Temp 98.6 F 07/25/19 12:50 Pulse 81 07/25/19 15:10 Resp 16 07/25/19 15:10 BP 98/64 07/25/19 13:37 Pulse Ox 93 L 07/25/19 12:50 Intake & Output 07/25/19 07/25/19 07/26/19 06:59 18:59 06:59 Intake Total 250 Balance 250 Intake: Oral 250 Other: Voiding Method Bedside Commode Bedside Commode # Voids 3 1 0 # Bowel Movements 0 - Exam PHYSICAL EXAMINATION: Patient is lying in the bed comfortably, no acute distress, awake alert and oriented.. HEENT: Normocephalic. Neck is supple. Pupils reactive. Nostrils clear. Oral cavity is moist. Ears reveal no drainage. Neck reveals no JVD, carotid bruits, or thyromegaly. CHEST EXAMINATION: Trachea is central. Symmetrical expansion. Lung besaley clear to auscultation and percussion. CARDIAC: Normal S1, S2 with no gallops. No murmurs ABDOMEN: Soft. Surgical site is bandaged. No drainage noted..Bowel sounds normal. No organomegaly. No abdominal bruits. Extremities: reveal no edema. No clubbing or cyanosis Neurologically awake, alert, oriented x3 with well-coordinated movements. No focal deficits noted Skin: No rash or skin lesions. Psychiatric: Coperative. Nonsuicidal Musculoskeletal: No joint swelling or deformity. Normal range of motion. - Labs CBC & Chem 7: 07/25/19 09:11 07/25/19 09:11 Labs: Abnormal Lab Results - Last 24 Hours (Table) 07/25/19 07/25/19 Range/Units 09:11 09:11 WBC 11.9 H (3.8-10.6) k/uL RBC 3.35 L (3.80-5.40) m/uL Hgb 10.1 L (11.4-16.0) gm/dL Hct 30.9 L (34.0-46.0) % Plt Count 731 H (150-450) k/uL Neutrophils # 9.4 H (1.3-7.7) k/uL Sodium 133 L (137-145) mmol/L Glucose 171 H (74-99) mg/dL Calcium 8.0 L (8.4-10.2) mg/dL Microbiology - Last 24 Hours (Table) 07/24/19 16:45 Gram Stain - Preliminary Abdomen Wound Culture - Preliminary 07/24/19 16:45 Gram Stain - Preliminary Abdomen Tissue Culture - Preliminary 07/24/19 16:45 Anaerobic Culture - Preliminary Abdomen 07/24/19 16:45 Anaerobic Culture - Preliminary Abdomen Assessment and Plan Assessment: Incisional wound skin and fat tissue discoloration. Possible necrotizing wound infection. Status post Debridement of abdominal wall necrotic skin and fat on 07/24/2019 Status post repair of recurrent incarcerated incisional hernia with mesh on 07/04/2019 Abnormal shaking movements at night as per patient's family. None witnessed while in the hospital. CT head negative. Hypertension controlled Hyperlipidemia GERD History of gastric bypass surgery Anxiety/depression Previous history of smoking DVT prophylaxis with heparin subcu Plan: Patient will be continued on IV hydration gently and antibiotics in the form of Zosyn will be continued. Patient is status post debridement. Wound VAC to be placed. Follow-up culture reports. Continue the home medications and further recommendations based on the clinical course. We will continue to follow with you. Thank you for your consult. Time with Patient: Greater than 30
[2019-07-26] MEDS: HEPARIN SODIUM,PORCINE 5,000 UNIT/ML 1 ML VIAL SQ SCH ×3 (00:48→15:23)
[2019-07-26] MEDS: SODIUM CHLORIDE 0.9% 1,000 ML IV SCH ×2 (03:18→07:05)
[2019-07-26] MEDS: PIPERACILLIN-TAZOBACTAM 3.375 GM in SODIUM CHLORIDE 0.9% 100 ML IVPB SCH ×3 (05:30→21:30)
[2019-07-26] MEDS: HYDROmorphone 1 MG/ML 1 ML SYRINGE IVP PRN (07:04)
[2019-07-26] MEDS: PANTOPRAZOLE 40 MG TABLET PO SCH (07:04)
[2019-07-26] MEDS: CYCLOBENZAPRINE 5 MG TAB PO SCH ×2 (07:04→21:29)
[2019-07-26] MEDS: HYDROmorphone 0.5 MG/0.5 ML SYRINGE IVP PRN ×3 (07:04→21:36)
--- NOTE | 2019-07-26 13:49 | P.PN ---
Subjective Progress Note Date: 07/26/19 CHIEF COMPLAINT: post op HISTORY OF PRESENT ILLNESS: Patient is status post debridement of abdominal wall necrotic skin and fascia and removal of mesh. Postoperative day #2. Patient reports her pain is tolerable. Tolerating diet. Denies nausea or vomiting. PHYSICAL EXAM: VITAL SIGNS: Reviewed. GENERAL: Well-developed in no acute distress. HEENT: No sclera icterus. Extraocular movements grossly intact. Moist buccal mucosa. Head is atraumatic, normocephalic. ABDOMEN: Obese. Soft. Nondistended. [place] to midline incision. Wound vac noted to abdomen. NEUROLOGIC: Alert and oriented. Cranial nerves II through XII grossly intact. ASSESSMENT: 1. Recent repair of recurrent incarcerated incisional hernia with mesh on 07/04/2019, status post debridement of abdominal wall necrotic skin and fascia and removal of mesh 2. Skin and fat ischemia with necrotic tissue of abdomen PLAN: 1. Continue IV antibiotics. Dr. Zamora on consult 2. Pain control 3. Continue wound vac 4. Patient interested in subacute rehab at the time of discharge. Possible discharge early next week. Nurse practitioner note has been reviewed by physician. Signing provider agrees with the documented findings, assessment, and plan of care. Objective - Vital Signs Vital signs: Vital Signs Temp 97.7 F 07/26/19 05:14 Pulse 64 07/26/19 05:14 Resp 18 07/26/19 05:14 BP 97/54 07/26/19 05:14 Pulse Ox 94 L 07/26/19 05:14 Intake & Output 07/25/19 07/26/19 07/26/19 18:59 06:59 18:59 Intake Total 250 500 Balance 250 500 Weight 124.284 kg Intake: Oral 250 500 Other: Voiding Method Bedside Commode Bedside Commode Bedside Commode # Voids 1 3 2 # Bowel Movements 0 - Labs CBC & Chem 7: 07/25/19 09:11 07/25/19 09:11 Labs: Microbiology - Last 24 Hours (Table) 07/24/19 16:45 Gram Stain - Preliminary Abdomen Wound Culture - Preliminary
--- NOTE | 2019-07-26 16:35 | CDI ---
Documentation Clarification Form Date: 07/26/2019 4:25:02 PM From: Ayde Schrader RN, CCDS Admit Date: 07/22/2019 2:06:00 PM Patient Name: Breann Reed Visit Number: [id number] ATTENTION: The Clinical Documentation Specialists (CDI) and [facility] Coding Staff appreciate your assistance in clarifying documentation. Please respond to the clarification below the line at the bottom and electronically sign. The CDI & [facility] Coding staff will review the response and follow-up if needed. Please note: Queries are made part of the Legal Health Record. If you have any questions, please contact the author of this message via ITS. Dr. Jose G Cloud Per your progress notes/operative note, a debridement was performed on 07/24/19 and requires further specificity. History/Risk Factors: Recent recurrent incisional hernia repair on 07/04/19 presenting with black discoloration and drainage to her wound Clinical Indicators: 07/24 Op Note: " Post OP diagnosis: Abdominal wall fat and skin necrosis, infected seroma, infected mesh Procedure Performed: "Debridement of abdominal wall necrotic skin and fat, Removal of mesh." Treatment: Description of Procedure: "The skin and fat necrosis appeared to be along the central portion of the incision. Using a 15 blade the skin was incised and then using the electrocautery hemostasis achieved and then the subcutaneous fat was divided with the Enseal device. The specimen sent to Pathology. The wound measured approximately 45 cm long by 27 cm wide and 15 cm deep. The Bovie hemostasis. The mesh was removed from the fascia using sharp dissection and sent to pathology. Five elements required for accurate and compliant documentation of a debridement: 1. Technique used (e.g., excisional, excised, cutting, etc.) 2. Instrument(s) used (e.g., scalpel, curette, etc.) 3. Nature of the tissue removed (e.g., necrotic, devitalized tissues, non- viable tissue, etc.) 4. Appearance and size of the wound (e.g., down to fresh bleeding tissue, 7cm x 10cm, etc.) 5. Depth of the debridement* (e.g., skin, subcutaneous tissue, fascia, muscle, bone, etc.) In order to capture the severity of condition and code the appropriate procedure; could you please document the following: Excisional debridement (the removal of necrotic, devitalized tissue or slough by means of cutting away of tissue) Non-excisional debridement (the removal of necrotic, devitalized tissue or slough by means of flushing, brushing, or washing. (Irrigation) Other; please specify Unable to determine (Last Revision: December 2017) MTDD
--- NOTE | 2019-07-26 16:46 | CDI ---
Documentation Clarification Form Date: 07/26/2019 4:36:14 PM From: Ayde Schrader RN, CCDS Admit Date: 07/22/2019 2:06:00 PM Patient Name: Breann Reed Visit Number: [id number] ATTENTION: The Clinical Documentation Specialists (CDI) and [facility] Coding Staff appreciate your assistance in clarifying documentation. Please respond to the clarification below the line at the bottom and electronically sign. The CDI & [facility] Coding staff will review the response and follow-up if needed. Please note: Queries are made part of the Legal Health Record. If you have any questions, please contact the author of this message via ITS. Dr. Remberto Lora low Hgb and Hct has been noted and lacks specificity to accurately reflect your patients severity of condition and clarification is needed. History/Risk Factors: Pt recently had an incisional hernia repair 07/04/19, necrosis of abdominal skin, fat, and mesh with debridement this admission Clinical indicators: Hemoglobin: 10.6/9.6/10.1 Hematocrit: 31.8/29.6/30.9 Treatment: Monitoring labs AM Daily 0.9% NS @ 60 cc/hr In order to capture the severity of condition, please clarify the type of anemia and etiology if known: Acute blood loss anemia Acute on chronic blood loss anemia Chronic blood loss anemia Iron deficiency anemia Nutritional anemia Anemia of chronic disease Unable to determine Other, please specify (Last Revision: July 2017) Unable to determine MTDD
--- NOTE | 2019-07-26 17:22 | PN ---
PROGRESS NOTE DATE OF SERVICE: 07/26/2019. REASON FOR FOLLOWUP VISIT: Infected abdominal mesh cellulitis. INTERVAL HISTORY: The patient is currently afebrile. Patient is breathing comfortably. The patient's abdominal pain is currently controlled. No chest pain, shortness of breath or cough. No nausea, no vomiting or any diarrhea. PHYSICAL EXAMINATION: Blood pressure is 99/61 with pulse 75, temperature 98.1. She is 96% on room air. General description is a middle-aged female up in the bed in no distress. Respiratory system: Unlabored breathing and is clear to auscultation anteriorly. Heart S1, S2. Regular rate and rhythm. Abdomen soft. Wound is currently covered with a wound VAC. Extremities: No edema of the feet. LABS: No new labs have been obtained today. Cultures are currently pending. DIAGNOSTIC IMPRESSION AND PLAN: Patient with abdominal wall cellulitis with infected mesh, status post removal of the same. Cultures currently pending. Patient is currently covered with Zosyn adjusting antibiotic further based on the culture report. Local wound care with wound VAC. The patient will be reevaluated tomorrow at the time of wound VAC change. Continue supportive care. MMODL / IJN: [id number] /
[2019-07-26] MEDS: FLUoxetine HCL 20 MG CAP PO SCH (21:29)
[2019-07-26] MEDS: ATORVASTATIN 10 MG TAB PO SCH (21:29)
[2019-07-26] MEDS: MELATONIN 3 MG TABLET PO SCH (21:29)
[2019-07-26] MEDS: LISINOPRIL-HCTZ 10-12.5 MG 1 EACH TAB PO SCH (21:30)
[2019-07-26] MEDS: OXYBUTYNIN 15 MG TAB.ER.24 PO SCH (21:30)
[2019-07-27] MEDS: HEPARIN SODIUM,PORCINE 5,000 UNIT/ML 1 ML VIAL SQ SCH ×3 (00:29→17:14)
[2019-07-27] MEDS: PIPERACILLIN-TAZOBACTAM 3.375 GM in SODIUM CHLORIDE 0.9% 100 ML IVPB SCH ×3 (06:23→22:51)
[2019-07-27] MEDS: CYCLOBENZAPRINE 5 MG TAB PO SCH ×2 (08:04→20:54)
[2019-07-27] MEDS: PANTOPRAZOLE 40 MG TABLET PO SCH (08:04)
[2019-07-27 08:11] LABS: Basophils # (A) 0.1 k/uL (0-0.2); Basophils % (A) 1 %; Eosinophils # (A) 0.7 k/uL (0-0.7); Eosinophils % (A) 7 %; HCT 29.7 % (34.0-46.0); HGB 9.5 gm/dL (11.4-16.0); Hypochromasia Slight; Lymphocytes # (A) 2.1 k/uL (1.0-4.8); Lymphocytes % (A) 21 %; MCH 29.6 pg (25.0-35.0); MCHC 32.2 g/dL (31.0-37.0); Mean Platelet Volume 5.6; Monocytes # (A) 0.7 k/uL (0-1.0); Monocytes % (A) 7 %; Neutrophils # (A) 6.1 k/uL (1.3-7.7); Neutrophils % (A) 62 %; Platelet Count 770 k/uL (150-450); RBC 3.22 m/uL (3.80-5.40); RDW 12.6 % (11.5-15.5); WBC 9.7 k/uL (3.8-10.6)
[2019-07-27] MEDS: HYDROcodone/APAP 5-325MG 1 EACH TAB PO PRN ×3 (08:11→17:13)
[2019-07-27 08:23] LABS: African American GFR (CKD) >90 (>60 ml/min/1.73 sqM); Anion Gap 6 mmol/L; Blood Urea Nitrogen 9 mg/dL (7-17); Carbon Dioxide 29 mmol/L (22-30); Chloride 104 mmol/L (98-107); Glucose 95 mg/dL (74-99); Potassium 3.6 mmol/L (3.5-5.1); Sodium 139 mmol/L (137-145)
--- NOTE | 2019-07-27 09:49 | P.PN ---
Subjective Progress Note Date: 07/27/19 Principal diagnosis: Incisional hernia Patient feels better today. More energy. Less discomfort. T-max 99.8. White blood cell count 9.7. She was having some hallucinations per the family. Objective - Vital Signs Vital signs: Vital Signs Temp 98.4 F 07/27/19 05:40 Pulse 62 07/27/19 05:40 Resp 18 07/27/19 05:40 BP 113/73 07/27/19 05:40 Pulse Ox 96 07/27/19 05:40 Intake & Output 07/26/19 07/27/19 07/27/19 18:59 06:59 18:59 Intake Total 700 Balance 700 Weight 124.284 kg Intake: Oral 700 Other: Voiding Method Bedside Commode Bedside Commode # Voids 2 5 # Bowel Movements 0 - Exam Abdomen: Soft, nondistended, incision clean and dry and wound VAC in place centrally, minimal tenderness - Labs CBC & Chem 7: 07/27/19 07:43 07/27/19 07:43 Labs: Abnormal Lab Results - Last 24 Hours (Table) 07/27/19 07/27/19 Range/Units 07:43 07:43 RBC 3.22 L (3.80-5.40) m/uL Hgb 9.5 L (11.4-16.0) gm/dL Hct 29.7 L (34.0-46.0) % Plt Count 770 H (150-450) k/uL Calcium 8.0 L (8.4-10.2) mg/dL Microbiology - Last 24 Hours (Table) 07/24/19 16:45 Gram Stain - Final Abdomen Wound Culture - Final Assessment and Plan (1) Wound infection after surgery Narrative/Plan: Patient overall doing fairly well. Change wound VAC today. Increase activity. Possible rehab Monday. Current Visit: Yes Status: Acute Code(s): T81.49XA - INFECTION FOLLOWING A PROCEDURE, OTHER SURGICAL SITE, INIT SNOMED Code(s): 06533030
[2019-07-27] MEDS: SODIUM CHLORIDE 0.9% 1,000 ML IV SCH (13:17)
[2019-07-27] MEDS: HYDROmorphone 1 MG/ML 1 ML SYRINGE IVP PRN (13:17)
--- NOTE | 2019-07-27 17:52 | PN ---
PROGRESS NOTE DATE OF SERVICE: 07/27/2019 REASON FOR FOLLOWUP: Abdominal incision ischemia and abdominal wound. INTERVAL HISTORY: The patient is currently afebrile. Patient is breathing comfortably. The patient denies having any chest pain or shortness of breath or cough. No nausea, vomiting, abdominal pain, or any diarrhea. Wound VAC was changed by the nursing staff this morning. Overall, wound bed looks clean. PHYSICAL EXAMINATION: Blood pressure is 102/60 with a pulse of 64, temperature 98.6. She is 94% on room air. General description is a middle-aged female lying in bed in no distress. Respiratory system: Unlabored breathing, clear to auscultation anteriorly. Heart S1, S2. Regular rate and rhythm. Abdomen soft. Extremities, no edema of the feet. LABS: Hemoglobin 9.5, white count 9.7, creatinine 0.55. The abdominal culture so far negative. DIAGNOSTIC IMPRESSION AND PLAN: Patient admitted to hospital with necrosis of the incision in this patient with recent incisional hernia repair, likely ischemia. Underlying infection less likely with cultures remain to be negative. Currently on Zosyn. Hopefully, will give short course of oral antibiotic on discharge. Local care to continue with wound VAC and follow up [facility]. Family at the bedside. Questions were answered. MMODL / IJN: [id number] /
[2019-07-27] MEDS: MELATONIN 3 MG TABLET PO SCH (20:54)
[2019-07-27] MEDS: FLUoxetine HCL 20 MG CAP PO SCH (20:54)
[2019-07-27] MEDS: ATORVASTATIN 10 MG TAB PO SCH (20:54)
[2019-07-27] MEDS: LISINOPRIL-HCTZ 10-12.5 MG 1 EACH TAB PO SCH (20:54)
[2019-07-27] MEDS: OXYBUTYNIN 15 MG TAB.ER.24 PO SCH (20:54)
--- NOTE | 2019-07-27 23:58 | P.PN ---
Subjective Progress Note Date: 07/26/19 Principal diagnosis: Skin and fat necrosis over the surgical sutures. Status post debridement. Patient is a 54-year-old female with a known history of hypertension, hyperlipidemia, GERD and recent surgery with repair of recurrent incarcerated incisional hernia with mesh on 07/04/2019 came to ER with the complaints of possible infection of the incision area.Patient states last 2 days she has noticed an odor coming from her wound as well as increased in yellow discharge and color changing from slightly red to a more black color. Patient denies fever, chills, nausea, vomiting. Patient states she is a little bit more tender around her incision then she was the past week. Patient did call Dr. Cloud's office who told her to come into the ER for evaluation.Patient does have follow- up appointment with him tomorrow in his office. Patient has been afebrile. Denied any chills. No complains of chest pain or shortness of breath. As per the patient and her family, patient has been having jerky movements of the upper extremities while she was sleeping and also having lipsmacking and involuntary movements. Patient's family is concerned about possible seizures which is unlikely at this time. No history of prior head injury. No history of seizures in the past. 07/24/[address] of the head showed no acute process. No abnormal movements noted overnight. EEG report is pending. Patient is status post Debridement of abdominal wall necrotic skin and fat. Follow-up culture reports. No fever no chills. WBC 11.5potassium 3.2 Patient be continued on antibiotics in the form of Zosyn. No complaints of chest pain or shortness of breath. 07/25/2019 Patient does not have any fever or chills. Tolerating oral diet. Status post debridement of necrotic tissue and removal of mesh. Wound VAC will be placed. Cultures pending. Patient had EEG done showed mostly encephalopathic like picture. No epileptiform wears are noted. No complaints of chest pain or shortness of breath. No nausea vomiting. Continued on IV Zosyn. ID is following. 07/26/2019 Patient denied any complaints of chest pain or shortness of. Abdominal discomfort is much improved. Tolerating oral diet. Currently being continued on IV antibiotics and wound VAC was applied. No other acute overnight issues. Possible discharge to rehab with IV antibiotics per ID. Current medications reviewed. Objective - Vital Signs Vital signs: Vital Signs Temp 99.8 F H 07/26/19 20:00 Pulse 71 07/26/19 20:00 Resp 16 07/26/19 20:00 BP 113/70 07/26/19 20:00 Pulse Ox 94 L 07/26/19 20:00 Intake & Output 07/26/19 07/26/19 07/27/19 06:59 18:59 06:59 Intake Total 500 700 Balance 500 700 Weight 124.284 kg Intake: Oral 500 700 Other: Voiding Method Bedside Commode Bedside Commode # Voids 3 2 1 # Bowel Movements 0 0 - Exam PHYSICAL EXAMINATION: Patient is lying in the bed comfortably, no acute distress, awake alert and mandy ented.. HEENT: Normocephalic. Neck is supple. Pupils reactive. Nostrils clear. Oral cavity is moist. Ears reveal no drainage. Neck reveals no JVD, carotid bruits, or thyromegaly. CHEST EXAMINATION: Trachea is central. Symmetrical expansion. Lung beasley clear to auscultation and percussion. CARDIAC: Normal S1, S2 with no gallops. No murmurs ABDOMEN: Soft. Surgical site is bandaged. No drainage noted..Bowel sounds normal. No organomegaly. No abdominal bruits. Extremities: reveal no edema. No clubbing or cyanosis Neurologically awake, alert, oriented x3 with well-coordinated movements. No focal deficits noted Skin: No rash or skin lesions. Psychiatric: Coperative. Nonsuicidal Musculoskeletal: No joint swelling or deformity. Normal range of motion. - Labs CBC & Chem 7: 07/27/19 07:43 07/27/19 07:43 Labs: Microbiology - Last 24 Hours (Table) 07/24/19 16:45 Gram Stain - Final Abdomen Wound Culture - Final Assessment and Plan Assessment: Incisional wound skin and fat tissue discoloration. Possible necrotizing wound infection. Status post Debridement of abdominal wall necrotic skin and fat on 07/24/2019 Status post repair of recurrent incarcerated incisional hernia with mesh on 07/04/2019 Abnormal shaking movements at night as per patient's family. None witnessed while in the hospital. CT head negative. Hypertension controlled Hyperlipidemia GERD History of gastric bypass surgery Anxiety/depression Previous history of smoking DVT prophylaxis with heparin subcu Plan: Patient will be continued on IV hydration gently and antibiotics in the form of Zosyn will be continued. Patient is status post debridement. Wound VAC to be placed. Follow-up culture reports. Continue the home medications and further recommendations based on the clinical course. We will continue to follow with you. Thank you for your consult. Time with Patient: Greater than 30
--- NOTE | 2019-07-28 | P.PN ---
Subjective Progress Note Date: 07/27/19 Principal diagnosis: Skin and fat necrosis over the surgical sutures. Status post debridement. Patient is a 54-year-old female with a known history of hypertension, hyperlipidemia, GERD and recent surgery with repair of recurrent incarcerated incisional hernia with mesh on 07/04/2019 came to ER with the complaints of possible infection of the incision area.Patient states last 2 days she has noticed an odor coming from her wound as well as increased in yellow discharge and color changing from slightly red to a more black color. Patient denies fever, chills, nausea, vomiting. Patient states she is a little bit more tender around her incision then she was the past week. Patient did call Dr. Cloud's office who told her to come into the ER for evaluation.Patient does have follow- up appointment with him tomorrow in his office. Patient has been afebrile. Denied any chills. No complains of chest pain or shortness of breath. As per the patient and her family, patient has been having jerky movements of the upper extremities while she was sleeping and also having lipsmacking and involuntary movements. Patient's family is concerned about possible seizures which is unlikely at this time. No history of prior head injury. No history of seizures in the past. 07/24/[address] of the head showed no acute process. No abnormal movements noted overnight. EEG report is pending. Patient is status post Debridement of abdominal wall necrotic skin and fat. Follow-up culture reports. No fever no chills. WBC 11.5potassium 3.2 Patient be continued on antibiotics in the form of Zosyn. No complaints of chest pain or shortness of breath. 07/25/2019 Patient does not have any fever or chills. Tolerating oral diet. Status post debridement of necrotic tissue and removal of mesh. Wound VAC will be placed. Cultures pending. Patient had EEG done showed mostly encephalopathic like picture. No epileptiform wears are noted. No complaints of chest pain or shortness of breath. No nausea vomiting. Continued on IV Zosyn. ID is following. 07/26/2019 Patient denied any complaints of chest pain or shortness of. Abdominal discomfort is much improved. Tolerating oral diet. Currently being continued on IV antibiotics and wound VAC was applied. No other acute overnight issues. Possible discharge to rehab with IV antibiotics per ID. 07/27/2019 Patient denied any abdominal pain. Continue on wound VAC and IV antibiotics. Leukocytosis resolved. Follow up final culture reports. Anticipate discharged to rehab on Monday. No fever no chills. No nausea vomiting. No diarrhea. Patient did have bowel movement today. No other acute overnight issues. Current medications reviewed. Objective - Vital Signs Vital signs: Vital Signs Temp 98.6 F 07/27/19 13:56 Pulse 64 07/27/19 13:56 Resp 16 07/27/19 13:56 BP 102/60 07/27/19 13:56 Pulse Ox 94 L 07/27/19 13:56 Intake & Output 07/26/19 07/27/19 07/27/19 18:59 06:59 18:59 Intake Total 700 800 Balance 700 800 Weight 124.284 kg Intake: Oral 700 800 Other: Voiding Method Bedside Commode Bedside Commode # Voids 2 5 2 # Bowel Movements 0 - Exam PHYSICAL EXAMINATION: Patient is lying in the bed comfortably, no acute distress, awake alert and oriented.. HEENT: Normocephalic. Neck is supple. Pupils reactive. Nostrils clear. Oral cavity is moist. Ears reveal no drainage. Neck reveals no JVD, carotid bruits, or thyromegaly. CHEST EXAMINATION: Trachea is central. Symmetrical expansion. Lung beasley clear to auscultation and percussion. CARDIAC: Normal S1, S2 with no gallops. No murmurs ABDOMEN: Soft. Surgical site is bandaged. No drainage noted..Bowel sounds normal. No organomegaly. No abdominal bruits. Extremities: reveal no edema. No clubbing or cyanosis Neurologically awake, alert, oriented x3 with well-coordinated movements. No focal deficits noted Skin: No rash or skin lesions. Psychiatric: Coperative. Nonsuicidal Musculoskeletal: No joint swelling or deformity. Normal range of motion. - Labs CBC & Chem 7: 07/27/19 07:43 07/27/19 07:43 Labs: Abnormal Lab Results - Last 24 Hours (Table) 07/27/19 07/27/19 Range/Units 07:43 07:43 RBC 3.22 L (3.80-5.40) m/uL Hgb 9.5 L (11.4-16.0) gm/dL Hct 29.7 L (34.0-46.0) % Plt Count 770 H (150-450) k/uL Calcium 8.0 L (8.4-10.2) mg/dL Microbiology - Last 24 Hours (Table) 07/24/19 16:45 Gram Stain - Final Abdomen Wound Culture - Final Assessment and Plan Assessment: Incisional wound skin and fat tissue discoloration. Possible necrotizing wound infection. Status post Debridement of abdominal wall necrotic skin and fat on 07/24/2019. Wound VAC in place. Status post repair of recurrent incarcerated incisional hernia with mesh on 07/04/2019 Abnormal shaking movements at night as per patient's family. None witnessed while in the hospital. CT head negative. Hypertension controlled Hyperlipidemia GERD History of gastric bypass surgery Anxiety/depression Previous history of smoking DVT prophylaxis with heparin subcu Plan: Patient will be continued on oral diet and antibiotics in the form of Zosyn will be continued. Patient is status post debridement. Wound VAC in place. Follow- up culture reports. Continue the home medications and further recommendations based on the clinical course. We will continue to follow with you. Time with Patient: Greater than 30
[2019-07-28] MEDS: HEPARIN SODIUM,PORCINE 5,000 UNIT/ML 1 ML VIAL SQ SCH ×3 (00:42→15:53)
[2019-07-28] MEDS: HYDROcodone/APAP 5-325MG 1 EACH TAB PO PRN ×2 (02:45→15:58)
[2019-07-28] MEDS: SODIUM CHLORIDE 0.9% 1,000 ML IV SCH ×2 (06:21→22:10)
[2019-07-28] MEDS: PIPERACILLIN-TAZOBACTAM 3.375 GM in SODIUM CHLORIDE 0.9% 100 ML IVPB SCH ×2 (06:22→13:07)
[2019-07-28] MEDS: CYCLOBENZAPRINE 5 MG TAB PO SCH ×2 (08:37→22:11)
[2019-07-28] MEDS: traMADol 50 MG TAB PO PRN (08:37)
[2019-07-28] MEDS: PANTOPRAZOLE 40 MG TABLET PO SCH (08:37)
--- NOTE | 2019-07-28 12:03 | P.PN ---
Subjective Progress Note Date: 07/28/19 Principal diagnosis: Incisional hernia Patient doing well today. Pain is improved. No drainage. Tolerating diet. Objective - Vital Signs Vital signs: Vital Signs Temp 98.0 F 07/28/19 05:36 Pulse 62 07/28/19 05:36 Resp 20 07/28/19 05:36 BP 103/68 07/28/19 05:36 Pulse Ox 95 07/28/19 05:36 Intake & Output 07/27/19 07/28/19 07/28/19 18:59 06:59 18:59 Intake Total 800 300 Balance 800 300 Intake: Oral 800 300 Other: Voiding Method Bedside Commode # Voids 2 3 - Exam Abdomen: Soft, nondistended, large midline wound with wound VAC in place - Labs CBC & Chem 7: 07/27/19 07:43 07/27/19 07:43 Labs: Microbiology - Last 24 Hours (Table) 07/24/19 16:45 Anaerobic Culture - Final Abdomen Anaerobic Gram Positive Cocci 07/24/19 16:45 Anaerobic Culture - Final Abdomen Anaerobic Gram Positive Cocci 07/24/19 16:45 Gram Stain - Final Abdomen Tissue Culture - Final Staphylococcus epidermidis Assessment and Plan (1) Wound infection after surgery Narrative/Plan: Patient overall improving. Continue wound VAC therapy. Possible discharge to rehab tomorrow. Current Visit: Yes Status: Acute Code(s): T81.49XA - INFECTION FOLLOWING A PROCEDURE, OTHER SURGICAL SITE, INIT SNOMED Code(s): 48820966
[2019-07-28] MEDS ORDERED: VANCOMYCIN IV PER PHARMACY 1 EACH MISC MISCELLANE PRN (14:16)
[2019-07-28] MEDS: metroNIDAZOLE 500 MG TAB PO SCH ×2 (15:53→22:11)
[2019-07-28] MEDS: VANCOMYCIN 2,000 MG in SODIUM CHLORIDE 0.9% 500 ML 500 ML IVPB SCH (15:53)
--- NOTE | 2019-07-28 18:08 | PN ---
PROGRESS NOTE DATE OF SERVICE: 07/28/2019. REASON FOR FOLLOWUP: Abdominal wound and cellulitis. INTERVAL HISTORY: The patient is currently afebrile. Patient is breathing comfortably. The patient denies having any chest pain. No shortness of breath or cough. Abdominal pain is currently improved. No nausea, vomiting and no diarrhea. PHYSICAL EXAMINATION: Blood pressure is 115/74 with a pulse of 55. Temperature 98.6. She is 97% on room air. General description is a middle-aged female lying in bed in no distress. Respiratory system: Unlabored breathing. Clear to auscultation anteriorly. Heart S1, S2. Regular rate and rhythm. Abdomen soft. Midline was covered with a wound VAC. No surrounding redness or any drainage. LABS: Hemoglobin 9.4, white count of 9.7, BUN of 9, creatinine 0.55. Abdominal culture did show Staphylococcus another gram-positive cocci. DIAGNOSTIC IMPRESSION AND PLAN: Patient with tense abdominal wound after debridement of an ischemic incision post incisional hernia repair. Culture positive for staph epi possibly skin contaminant rather than true pathogen. Antibiotic has been adjusted to vancomycin and Flagyl with benefit with short course of oral doxycycline and Flagyl. Local care to continue with the wound VAC. [facility] MMODL / IJN: [id number] /
[2019-07-28] MEDS: ATORVASTATIN 10 MG TAB PO SCH (22:11)
[2019-07-28] MEDS: MELATONIN 3 MG TABLET PO SCH (22:11)
[2019-07-28] MEDS: FLUoxetine HCL 20 MG CAP PO SCH (22:12)
[2019-07-28] MEDS: LISINOPRIL-HCTZ 10-12.5 MG 1 EACH TAB PO SCH (22:27)
[2019-07-28] MEDS: OXYBUTYNIN 15 MG TAB.ER.24 PO SCH (22:27)
--- NOTE | 2019-07-28 23:51 | P.PN ---
Subjective Progress Note Date: 07/28/19 Principal diagnosis: Skin and fat necrosis over the surgical sutures. Status post debridement. Patient is a 54-year-old female with a known history of hypertension, hyperlipidemia, GERD and recent surgery with repair of recurrent incarcerated incisional hernia with mesh on 07/04/2019 came to ER with the complaints of possible infection of the incision area.Patient states last 2 days she has noticed an odor coming from her wound as well as increased in yellow discharge and color changing from slightly red to a more black color. Patient denies fever, chills, nausea, vomiting. Patient states she is a little bit more tender around her incision then she was the past week. Patient did call Dr. Cloud's office who told her to come into the ER for evaluation.Patient does have follow- up appointment with him tomorrow in his office. Patient has been afebrile. Denied any chills. No complains of chest pain or shortness of breath. As per the patient and her family, patient has been having jerky movements of the upper extremities while she was sleeping and also having lipsmacking and involuntary movements. Patient's family is concerned about possible seizures which is unlikely at this time. No history of prior head injury. No history of seizures in the past. 07/24/[address] of the head showed no acute process. No abnormal movements noted overnight. EEG report is pending. Patient is status post Debridement of abdominal wall necrotic skin and fat. Follow-up culture reports. No fever no chills. WBC 11.5potassium 3.2 Patient be continued on antibiotics in the form of Zosyn. No complaints of chest pain or shortness of breath. 07/25/2019 Patient does not have any fever or chills. Tolerating oral diet. Status post debridement of necrotic tissue and removal of mesh. Wound VAC will be placed. Cultures pending. Patient had EEG done showed mostly encephalopathic like picture. No epileptiform wears are noted. No complaints of chest pain or shortness of breath. No nausea vomiting. Continued on IV Zosyn. ID is following. 07/26/2019 Patient denied any complaints of chest pain or shortness of. Abdominal discomfort is much improved. Tolerating oral diet. Currently being continued on IV antibiotics and wound VAC was applied. No other acute overnight issues. Possible discharge to rehab with IV antibiotics per ID. 07/27/2019 Patient denied any abdominal pain. Continue on wound VAC and IV antibiotics. Leukocytosis resolved. Follow up final culture reports. Anticipate discharged to rehab on Monday. No fever no chills. No nausea vomiting. No diarrhea. Patient did have bowel movement today. No other acute overnight issues. 07/28/2019 Patient is status post debridement of necrotic tissue and removal of mesh.recent surgery with repair of recurrent incarcerated incisional hernia with mesh on 07/04/2019 No leukocytosis. No fever. Currently being continued on wound VAC and IV antibiotics. Anticipate discharged to rehab with final antibiotic recommendations Abdomen surgical wound is healing well and no necrotic tissue currently. No chest pain or shortness of breath. Tolerating oral diet. No nausea vomiting or abdominal pain. Current medications reviewed. Objective - Vital Signs Vital signs: Vital Signs Temp 98.6 F 07/28/19 15:00 Pulse 65 07/28/19 15:00 Resp 16 07/28/19 16:00 BP 115/74 07/28/19 15:00 Pulse Ox 97 07/28/19 15:00 Intake & Output 07/27/19 07/28/19 07/28/19 18:59 06:59 18:59 Intake Total 800 300 400 Balance 800 300 400 Intake: Oral 800 300 400 Other: Voiding Method Bedside Commode # Voids 2 3 1 - Exam PHYSICAL EXAMINATION: Patient is lying in the bed comfortably, no acute distress, awake alert and oriented.. HEENT: Normocephalic. Neck is supple. Pupils reactive. Nostrils clear. Oral cavity is moist. Ears reveal no drainage. Neck reveals no JVD, carotid bruits, or thyromegaly. CHEST EXAMINATION: Trachea is central. Symmetrical expansion. Lung beasley clear to auscultation and percussion. CARDIAC: Normal S1, S2 with no gallops. No murmurs ABDOMEN: Soft. Surgical site is clean. Wound VAC in place. No drainage no rodrigo..Bowel sounds normal. No organomegaly. No abdominal bruits. Extremities: reveal no edema. No clubbing or cyanosis Neurologically awake, alert, oriented x3 with well-coordinated movements. No fo claudia deficits noted Skin: No rash or skin lesions. Psychiatric: Coperative. Nonsuicidal Musculoskeletal: No joint swelling or deformity. Normal range of motion. - Labs CBC & Chem 7: 07/27/19 07:43 07/27/19 07:43 Labs: Microbiology - Last 24 Hours (Table) 07/24/19 16:45 Anaerobic Culture - Final Abdomen Anaerobic Gram Positive Cocci 07/24/19 16:45 Anaerobic Culture - Final Abdomen Anaerobic Gram Positive Cocci 07/24/19 16:45 Gram Stain - Final Abdomen Tissue Culture - Final Staphylococcus epidermidis Assessment and Plan Assessment: Incisional wound skin and fat tissue discoloration. Possible necrotizing wound infection. Status post Debridement of abdominal wall necrotic skin and fat on 07/24/2019. Wound VAC in place. Status post repair of recurrent incarcerated incisional hernia with mesh on 07/04/2019 Abnormal shaking movements at night as per patient's family. None witnessed while in the hospital. CT head negative. Hypertension controlled Hyperlipidemia GERD History of gastric bypass surgery Anxiety/depression Previous history of smoking DVT prophylaxis with heparin subcu Plan: Patient will be continued on oral diet and antibiotics in the form of Zosyn will be continued. Patient is status post debridement. Wound VAC in place. Follow- up culture reports. Continue the home medications and further recommendations based on the clinical course. We will continue to follow with you. Time with Patient: Greater than 30
[2019-07-29] MEDS: VANCOMYCIN 2,000 MG in SODIUM CHLORIDE 0.9% 500 ML 500 ML IVPB SCH ×2 (00:20→07:13)
[2019-07-29] MEDS: HEPARIN SODIUM,PORCINE 5,000 UNIT/ML 1 ML VIAL SQ SCH ×4 (00:20→22:28)
[2019-07-29] MEDS: metroNIDAZOLE 500 MG TAB PO SCH ×3 (07:13→20:40)
[2019-07-29] MEDS: PANTOPRAZOLE 40 MG TABLET PO SCH (07:13)
[2019-07-29] MEDS: CYCLOBENZAPRINE 5 MG TAB PO SCH ×2 (07:13→20:40)
[2019-07-29 08:00] LABS: Basophils # (A) 0.1 k/uL (0-0.2); Basophils % (A) 1 %; Eosinophils # (A) 0.7 k/uL (0-0.7); Eosinophils % (A) 6 %; HCT 28.7 % (34.0-46.0); HGB 9.2 gm/dL (11.4-16.0); Hypochromasia Slight; Lymphocytes # (A) 2.5 k/uL (1.0-4.8); Lymphocytes % (A) 24 %; MCH 29.4 pg (25.0-35.0); MCHC 31.9 g/dL (31.0-37.0); MCV 92.2 fL (80.0-100.0); Mean Platelet Volume 5.2; Monocytes # (A) 0.6 k/uL (0-1.0); Monocytes % (A) 6 %; Neutrophils # (A) 6.2 k/uL (1.3-7.7); Neutrophils % (A) 61 %; Platelet Count 722 k/uL (150-450); RBC 3.11 m/uL (3.80-5.40); RDW 13.1 % (11.5-15.5); WBC 10.1 k/uL (3.8-10.6)
[2019-07-29 08:24] LABS: African American GFR (CKD) >90 (>60 ml/min/1.73 sqM); Anion Gap 3 mmol/L; Blood Urea Nitrogen 11 mg/dL (7-17); Carbon Dioxide 29 mmol/L (22-30); Chloride 107 mmol/L (98-107); Glucose 87 mg/dL (74-99); Potassium 3.7 mmol/L (3.5-5.1); Sodium 139 mmol/L (137-145)
[2019-07-29] MEDS: SODIUM CHLORIDE 0.9% 1,000 ML IV SCH (11:12)
[2019-07-29] MEDS: HYDROcodone/APAP 5-325MG 1 EACH TAB PO PRN ×2 (12:30→19:24)
--- NOTE | 2019-07-29 12:40 | P.DS ---
<Agata Milian - Last Filed: 07/29/19 12:38> Providers Expected date of discharge: 07/29/19 Hospital Course: 54-year-old female who recently underwent repair of recurrent incarcerated incisional hernia with mesh on 07/04/[address] Cloud. Patient presented to the emergency room with a complaint of black discoloration and drainage to her wound. Patient reports increased tenderness to incision. She denies fever or chills. Patient underwent debridement of abdominal wall necrotic skin and fascia and removal of mesh. Infectious disease was consulted to evaluate patient during hospitalization. Wound VAC was placed to wound. She is stable for discharge to subacute rehab today on oral antibiotics per infectious disease recommendations. Please see EMR for further hospital course details. Discharge Diagnosis: 1. Recent repair of recurrent incarcerated incisional hernia with mesh on 07/04/2019, status post debridement of abdominal wall necrotic skin and fascia and removal of mesh 2. Skin and fat ischemia with necrotic tissue of abdomen Nurse practitioner note has been reviewed by physician. Signing provider agrees with the documented findings, assessment, and plan of care. Patient Condition at Discharge: Stable Plan - Discharge Summary New Discharge Prescriptions: New metroNIDAZOLE [Flagyl] 500 mg PO TID #21 tab Doxycycline [Vibramycin] 100 mg PO BID #14 capsule Hydrocodone/Acetaminophen [[place] 5-325] 1 tab PO Q6HR PRN 3 Days #12 tab PRN Reason: Pain Docusate [Colace] 100 mg PO BID #30 capsule Continue Lisinopril-Hctz 10-12.5 mg [Zestoretic 10-12.5] 1 tab PO HS Simvastatin [Zocor] 10 mg PO HS Oxybutynin Chloride [Oxybutynin Chloride ER] 15 mg PO HS FLUoxetine HCL [PROzac] 80 mg PO HS Albuterol Sulfate [Proair Hfa] 2 puff INHALATION RT-Q6H PRN PRN Reason: Shortness Of Breath Multivitamins, Thera [Multivitamin (formulary)] 1 tab PO HS Triamterene-Hctz 37.5-25Mg [Dyazide 37.5-25 Capsule] 1 cap PO DAILY PRN PRN Reason: Edema ALPRAZolam [Xanax] 0.25 mg PO BID PRN #6 tab PRN Reason: Anxiety Discontinued traMADol HCl [Ultram] 50 mg PO Q12H PRN PRN Reason: Pain Ibuprofen [Motrin] 800 mg PO Q8HR PRN PRN Reason: Pain Acetaminophen-Codeine 300-30mg [Tylenol w/codeine #3] 1 tab PO Q4-6H PRN PRN Reason: Pain Cyclobenzaprine [Flexeril] 5 mg PO BID #10 tablet Discharge Medication List Lisinopril-Hctz 10-12.5 mg [Zestoretic 10-12.5] 1 tab PO HS 07/03/14 [History] Simvastatin [Zocor] 10 mg PO HS 07/03/14 [History] Albuterol Sulfate [Proair Hfa] 2 puff INHALATION RT-Q6H PRN 03/11/19 [History] FLUoxetine HCL [PROzac] 80 mg PO HS 03/11/19 [History] Multivitamins, Thera [Multivitamin (formulary)] 1 tab PO HS 03/11/19 [History] Oxybutynin Chloride [Oxybutynin Chloride ER] 15 mg PO HS 03/11/19 [History] Triamterene-Hctz 37.5-25Mg [Dyazide 37.5-25 Capsule] 1 cap PO DAILY PRN 07/02/19 [History] ALPRAZolam [Xanax] 0.25 mg PO BID PRN #6 tab 07/29/19 [Rx] Docusate [Colace] 100 mg PO BID #30 capsule 07/29/19 [Rx] Doxycycline [Vibramycin] 100 mg PO BID #14 capsule 07/29/19 [Rx] Hydrocodone/Acetaminophen [[place] 5-325] 1 tab PO Q6HR PRN 3 Days #12 tab 07/29/19 [Rx] metroNIDAZOLE [Flagyl] 500 mg PO TID #21 tab 07/29/19 [Rx] Follow up Appointment(s)/Referral(s): Jennifer Robert III, MD [Primary Care Provider] - 1-2 days Mimi Benitez MD [Medical Doctor] - As Needed Charlie Zamora MD [STAFF PHYSICIAN] - 1 Week Jose G Cloud MD [STAFF PHYSICIAN] - 1 Week Activity/Diet/Wound Care/Special Instructions: diet as tolerated <Ross Alonzo - Last Filed: 10/28/19 18:08> Providers Date of admission: 07/22/19 14:06 Attending physician: Jose G Cloud Consults: 07/22/19 15:58 Consult Physician Routine Consulting Provider: Charlie Zamora Consult Reason/Comments: necrotic wound, will need wound vac Do you want consulting provider notified?: Yes 07/22/19 16:51 Consult Physician Routine Consulting Provider: Charlie Zamora Consult Reason/Comments: wound infection/necrosis Do you want consulting provider notified?: Yes 07/23/19 16:16 Consult Physician Routine Consulting Provider: Jennifer Robert III Consult Reason/Comments: medical management Do you want consulting provider notified?: Yes Primary care physician: Jennifer Robert - Discharge Diagnosis(es) (1) Wound infection after surgery Current Visit: Yes Status: Acute
--- NOTE | 2019-07-29 15:10 | PN ---
PROGRESS NOTE DATE OF SERVICE: 07/29/2019 REASON FOR FOLLOWUP: Abdominal wound with ischemic incision. INTERVAL HISTORY: The patient is currently afebrile. Patient has been breathing comfortably. The patient's wound VAC was removed this morning. She was complaining of pain in the left lower quadrant area. No chest pain, shortness of breath or cough. No diarrhea. PHYSICAL EXAMINATION: Blood pressure 152/78 with a pulse of 71, temperature is 97.3, she is 97% room air. General description is a middle-aged female lying in bed in no distress. RESPIRATORY SYSTEM: Unlabored breathing, clear to auscultation anteriorly. HEART: S1, S2. Regular rate and rhythm. ABDOMEN: Soft, wound bed looks clean with good clean tissue. No slough tissue or any drainage. LABS: Hemoglobin 9.8, white count 10.1 BUN of 11, creatinine 0.53. DIAGNOSTIC IMPRESSION AND PLAN: Patient with ischemia to his abdominal incision, status post extensive debridement and removal of the mesh with concern for underlying infection. Wound culture positive for Staph epi anaerobic gram-negative. Patient is currently on vancomycin and Flagyl with therapy with oral doxycycline and Flagyl. Local wound care with wound VAC. [facility] 1 [facility]. Continue supportive care. Family at the bedside. Their questions were answered. MMODL / IJN: [id number] /
[2019-07-29] MEDS: traMADol 50 MG TAB PO PRN (17:53)
[2019-07-29] MEDS: ALPRAZolam 0.25 MG TAB PO PRN (17:53)
--- NOTE | 2019-07-29 19:46 | PN ---
PROGRESS NOTE DATE OF SERVICE: 07/29/2019 This 54-year-old woman who was admitted with multiple medical problems, including extensive debridement with removal of mesh with abdominal wall infection had a wound V.A.C. placed. The patient also had incision of the wound and the patient is on broad- spectrum IV antibiotics at this time. PT/OT is evaluating the patient for possible ECF rehab at this time. Multiple consultants are following the patient closely. We are following along with Surgery. Past medical history reviewed. REVIEW OF SYSTEMS: CARDIOVASCULAR SYSTEM: No angina, palpitations. RESPIRATORY SYSTEM: As mentioned earlier. GI: As mentioned earlier. : No dysuria or retention. NERVOUS SYSTEM: No numbness, weakness. CURRENT MEDICATIONS: 1. Tylenol 650 q.6 p.r.n. 2. Bear 5 mg q.4 p.r.n. 3. Xanax 0.25 t.i.d. 4. Lipitor 10 mg at bedtime. 5. Flexeril 5 mg p.o. b.i.d. 6. Vibramycin 100 mg p.o. b.i.d. 7. Prozac 80 mg at bedtime. 8. Zestoretic 10/12.5 mg at bedtime. 9. Heparin 5000 units subcutaneously q.8. 10.Dilaudid 0.5 mg q.3 p.r.n. 11.Melatonin 3 mg p.o. at bedtime. 12.Flagyl 500 mg p.o. t.i.d. 13.Potassium protocol. 14.Narcan p.r.n. 15.Zofran 4 mg q.8 p.r.n. 16.Ditropan XL 15 mg at bedtime. 17.Protonix 40 mg before breakfast. 18.Ultram 50 mg q.6 p.r.n. 19.Dyazide 1 p.o. daily. PHYSICAL EXAMINATION: Patient is alert, oriented x3. Pulse 68, blood pressure 109/66, respirations 16, temperature 98.2, pulse ox 94% on room air. HEENT: Conjunctivae normal. Oral mucosa moist. NECK: No jugular venous distention. No carotid bruit. No lymph node enlargement. CARDIOVASCULAR SYSTEM: S1, S2 muffled. No S3. No S4. RESPIRATORY SYSTEM: Breath sounds diminished at the bases. A few scattered rhonchi. ABDOMEN: Soft, obese. Status post wound V.A.C. placement. LEGS: No edema. No swelling. NERVOUS SYSTEM: Higher functions as mentioned earlier. Moves all 4 limbs. No focal motor or sensory deficit. LYMPHATICS: No lymph node palpable in neck, axillae or groin. SKIN: No ulcer, rash, bleeding. JOINTS: No active deforming arthropathy. LABS: WBC 10.1, hemoglobin .2. Accu-Cheks noted. ASSESSMENT: 1. Incisional wound as well as fat discoloration; possible necrotic wound infection, status post debridement. 2. Wound V.A.C. in place. 3. Gait dysfunction. 4. Recurrent incarcerated incisional hernia. 5. Hypertension. 6. Hyperlipidemia. 7. Gastroesophageal reflux disease. 8. History of gastric bypass surgery. 9. Anxiety, depression. RECOMMENDATIONS AND DISCUSSION: I recommend to continue current medications, continue with the monitoring, symptomatic treatment. Resume the home medication. Medication reconciliation was noted. Otherwise, recommend close followup with Dr. Hernandez in [facility]. Continue to monitor. I would also recommend followup with Dr. Robert after discharge from the [facility]. Once again, the prognosis is guarded. See orders for further details. Further recommendations to follow. MMODL / IJN: [id number] / CAMILA
[2019-07-29] MEDS: ATORVASTATIN 10 MG TAB PO SCH (20:40)
[2019-07-29] MEDS: MELATONIN 3 MG TABLET PO SCH (20:40)
[2019-07-29] MEDS: FLUoxetine HCL 20 MG CAP PO SCH (20:40)
[2019-07-29] MEDS: DOXYCYCLINE 100 MG CAP PO SCH (20:41)
[2019-07-29] MEDS: OXYBUTYNIN 15 MG TAB.ER.24 PO SCH (20:55)
[2019-07-29] MEDS: LISINOPRIL-HCTZ 10-12.5 MG 1 EACH TAB PO SCH (20:55)
[2019-07-30] MEDS: ALPRAZolam 0.25 MG TAB PO PRN ×2 (01:12→10:22)
[2019-07-30] MEDS: HYDROcodone/APAP 5-325MG 1 EACH TAB PO PRN ×3 (01:13→14:24)
[2019-07-30] MEDS: SODIUM CHLORIDE 0.9% 1,000 ML IV SCH ×2 (02:03→23:10)
[2019-07-30] MEDS ORDERED: VANCOMYCIN TROUGH DUE 1 EACH MISC MISCELLANE ONE (07:00)
[2019-07-30] MEDS: HEPARIN SODIUM,PORCINE 5,000 UNIT/ML 1 ML VIAL SQ SCH ×2 (08:34→17:13)
[2019-07-30] MEDS: CYCLOBENZAPRINE 5 MG TAB PO SCH ×2 (08:34→21:42)
[2019-07-30] MEDS: PANTOPRAZOLE 40 MG TABLET PO SCH (08:34)
[2019-07-30] MEDS: DOXYCYCLINE 100 MG CAP PO SCH ×2 (08:35→21:41)
[2019-07-30] MEDS: metroNIDAZOLE 500 MG TAB PO SCH ×3 (08:35→21:42)
[2019-07-30 09:03] LABS: African American GFR (CKD) >90 (>60 ml/min/1.73 sqM)
--- NOTE | 2019-07-30 10:29 | XR ---
EXAMINATION TYPE: XR chest 1V portable DATE OF EXAM: 07/30/2019 Comparison: 03/11/2019 Clinical History: 54-year-old female with CHF Findings: Heart upper limits of normal size. Aorta and pulmonary vasculature within normal limits. Bands of ate lectasis in the mid and lower lungs. No sizable effusion. Impression: 1. Borderline heart size. 2. Prominent bandlike areas of atelectasis in the mid and lower lungs. Mild hypoventilatory changes. No marcell pulmonary edema.
[2019-07-30 10:33] LABS: Basophils % (A) 1 %; Eosinophils # (A) 0.6 k/uL (0-0.7); Eosinophils % (A) 6 %; HCT 29.9 % (34.0-46.0); HGB 9.4 gm/dL (11.4-16.0); Hypochromasia Moderate; Lymphocytes % (A) 20 %; MCH 29.3 pg (25.0-35.0); MCHC 31.5 g/dL (31.0-37.0); MCV 93.2 fL (80.0-100.0); Mean Platelet Volume 5.8; Monocytes # (A) 0.6 k/uL (0-1.0); Monocytes % (A) 6 %; Neutrophils # (A) 6.4 k/uL (1.3-7.7); Neutrophils % (A) 65 %; Platelet Count 762 k/uL (150-450); RBC 3.21 m/uL (3.80-5.40); RDW 13.3 % (11.5-15.5); WBC 9.8 k/uL (3.8-10.6)
[2019-07-30 10:34] LABS: Basophils # (A) 0.1 k/uL (0-0.2)
[2019-07-30 10:56] LABS: ALT 51 U/L (9-52); AST 51 U/L (14-36); African American GFR (CKD) >90 (>60 ml/min/1.73 sqM); Albumin 2.6 g/dL (3.5-5.0); Alkaline Phosphatase 81 U/L (38-126); Anion Gap 6 mmol/L; Blood Urea Nitrogen 9 mg/dL (7-17); Calcium 8.3 mg/dL (8.4-10.2); Carbon Dioxide 28 mmol/L (22-30); Chloride 104 mmol/L (98-107); Glucose 99 mg/dL (74-99); Potassium 3.7 mmol/L (3.5-5.1); Sodium 138 mmol/L (137-145); Total Bilirubin 0.2 mg/dL (0.2-1.3)
--- NOTE | 2019-07-30 12:21 | CT ---
EXAMINATION TYPE: CT abdomen pelvis wo con DATE OF EXAM: 07/30/2019 COMPARISON: 03/12/2019 HISTORY: 54-year-old female Left side abdominal pain post incisional hernia repair CT DLP: 2282.4 mGycm. Automated exposure control for dose reduction was used. TECHNIQUE: Contiguous axial scanning of the abdomen and pelvis without IV contrast. Coronal and sagit vanessa reconstructions performed. FINDINGS: Heart normal size without pericardial effusion. Bands of atelectasis in the lower lungs without pleur al effusion. Small hiatal hernia. Postsurgical changes of Francisco-en-Y gastric bypass. No dilated small bowel. There is a large anterior abdominal wound opening into the subcutaneous adipose which is extensively edematous. Residual rectus diastases at the periumbilical level measures 4.7 cm wide. There is interposed fat he re bulging anteriorly measuring 6.9 cm wide and demonstrating extensive edematous change and is niranjan nuous with focal collection of inflamed fat extending posteriorly and superiorly into the intra-abdom inal space measuring 8.4 cm craniocaudal by 7.6 cm AP by 8.5 cm wide. There appears to be a focal 2.8 cm fluid collection within. There is additional extension of this inflamed fat anteriorly and superiorly along the back side of t he abdominal wall musculature spanning 8.0 cm craniocaudal and 4.5 cm wide. There appears to be some mesh material just superficial to the anterior abdominal wall musculature wi th tracking air. Interval reduction of the herniated bowel loops. Normal appendix. No dilated small bowel or free air seen. Noncontrast appearance of the liver, adrenal glands, kidneys, spleen, atrophic pancreas show no gross abnormal. No obvious mesenteric or retroperitoneal lymphadenopathy. Bladder nondistended. No abnormal fluid collection in the pelvis or pelvic lymphadenopathy. Bones: Degenerative changes of the hips and pubic symphysis and hypertrophic facet arthropathy throug hout with grade 1 anterolisthesis at L4-L5. IMPRESSION: 1. Large anterior abdominal wall wound status post ventral hernia repair. There seems to be some mesh material superficial to the abdominal wall musculature with air tracking along the mesh. Extensive e dematous change throughout the subcutaneous adipose. Postsurgical change versus cellulitis. Correlate as to time since surgery. 2. Residual rectus diastases at the umbilical level with interposed fat bulging anteriorly measuring 6.9 cm wide demonstrating extensive edematous change. This collection of fat extends posteriorly and superiorly into the intra-abdominal space where there is an inflamed fat collection measuring 8.5 cm. A 2.8 cm fluid collection within could represent phlegmon or seroma. 3. Additional extension of this inflamed fat anteriorly and superiorly along the back side of the abd ominal wall musculature spanning 8 cm craniocaudal and 4.5 cm wide. Further clinical correlation gino l be needed.
--- NOTE | 2019-07-30 12:50 | P.PN ---
<Agata Milian Geno - Last Filed: 07/30/19 12:37> Subjective Progress Note Date: 07/30/19 CHIEF COMPLAINT: post op HISTORY OF PRESENT ILLNESS: Patient is status post debridement of abdominal wall necrotic skin and fascia and removal of mesh. Patient reports severe pain to left abdomen this morning. Pain is not located near incision. She is afraid she is getting another hernia at that location. Tolerating diet. Denies nausea or vomiting. PHYSICAL EXAM: VITAL SIGNS: Reviewed. GENERAL: Well-developed in no acute distress. HEENT: No sclera icterus. Extraocular movements grossly intact. Moist buccal mucosa. Head is atraumatic, normocephalic. ABDOMEN: Obese. Soft. Nondistended. Felix to midline incision. Wound vac noted to abdomen. NEUROLOGIC: Alert and oriented. Cranial nerves II through XII grossly intact. ASSESSMENT: 1. Recent repair of recurrent incarcerated incisional hernia with mesh on 07/04/2019, status post debridement of abdominal wall necrotic skin and fascia and removal of mesh 2. Skin and fat ischemia with necrotic tissue of abdomen PLAN: 1. Wound vac removed at bedside and wound examined. No areas of necrotic tissue. Nursing to replace wound vac this afternoon 2. Obtain CT scan 3. Continue antibiotics 4. Pain control 5. Hold discharge to [facility] today. Dr. Cloud will re-evaluate patient tomorrow. If her pain is improved, she will be discharged tomorrow to [facility] Nurse practitioner note has been reviewed by physician. Signing provider agrees with the documented findings, assessment, and plan of care. Objective - Vital Signs Vital signs: Vital Signs Temp 97.6 F 07/30/19 06:18 Pulse 72 07/30/19 06:18 Resp 18 07/30/19 06:18 BP 134/80 07/30/19 06:18 Pulse Ox 96 07/30/19 06:18 Intake & Output 07/29/19 07/30/19 07/30/19 18:59 06:59 18:59 Intake Total 850 Balance 850 Weight 124.284 kg Intake: Oral 850 Other: Voiding Method Toilet Toilet Bedside Commode # Voids 3 2 1 # Bowel Movements 1 0 - Labs CBC & Chem 7: 07/30/19 08:24 07/30/19 08:27 Labs: Abnormal Lab Results - Last 24 Hours (Table) 10/07/30/19 07/30/19 Range/Units 08:24 08:24 08:27 RBC 3.21 L (3.80-5.40) m/uL Hgb 9.4 L (11.4-16.0) gm/dL Hct 29.9 L (34.0-46.0) % Plt Count 762 H (150-450) k/uL Creatinine 0.51 L 0.51 L (0.52-1.04) mg/dL Calcium 8.3 L (8.4-10.2) mg/dL AST 51 H (14-36) U/L Total Protein 5.0 L (6.3-8.2) g/dL Albumin 2.6 L (3.5-5.0) g/dL <Ross Alonzo - Last Filed: 07/30/19 15:41> Subjective As above. Patient is having pain left midabdomen. CAT scan was performed which showed no definite etiology for her discomfort. Patient is also having some involuntary movements and neurology has been consulted. We'll replace wound VAC at this time. Continue antibiotics. Objective - Vital Signs Vital signs: Vital Signs Temp 98.1 F 07/30/19 12:34 Pulse 55 L 07/30/19 12:34 Resp 18 07/30/19 12:34 BP 134/61 07/30/19 12:34 Pulse Ox 98 07/30/19 12:34 Intake & Output 07/29/19 07/30/19 07/30/19 18:59 06:59 18:59 Intake Total 850 Balance 850 Weight 124.284 kg Intake: Oral 850 Other: Voiding Method Toilet Toilet Bedside Commode # Voids 3 2 1 # Bowel Movements 1 0 - Labs CBC & Chem 7: 07/30/19 08:24 07/30/19 08:27 Labs: Abnormal Lab Results - Last 24 Hours (Table) 07/30/19 07/30/19 07/30/19 Range/Units 08:24 08:24 08:27 RBC 3.21 L (3.80-5.40) m/uL Hgb 9.4 L (11.4-16.0) gm/dL Hct 29.9 L (34.0-46.0) % Plt Count 762 H (150-450) k/uL Creatinine 0.51 L 0.51 L (0.52-1.04) mg/dL Calcium 8.3 L (8.4-10.2) mg/dL AST 51 H (14-36) U/L Total Protein 5.0 L (6.3-8.2) g/dL Albumin 2.6 L (3.5-5.0) g/dL Assessment and Plan (1) Wound infection after surgery Current Visit: Yes Status: Acute Code(s): T81.49XA - INFECTION FOLLOWING A P ROCEDURE, OTHER SURGICAL SITE, INIT SNOMED Code(s): 65799525
--- NOTE | 2019-07-30 16:40 | PN ---
PROGRESS NOTE DATE OF SERVICE: 07/30/2019 This 54-year-old woman who was admitted after surgery for incisional wound is being closely monitored. Patient was complaining of abdominal pain which was treated on the left side rather away from the incision yesterday on and off. Surgery is following the patient closely. A CT scan of the abdomen and pelvis showed some edematous changes, mostly post-surgical. Inflamed fat collection was also suspected. No chest pain. No palpitations. Past medical history reviewed. REVIEW OF SYSTEMS: CARDIOVASCULAR SYSTEM:ntd RESPIRATORY SYSTEM: No cough, hemoptysis. GI: As mentioned earlier. : No dysuria or retention. NERVOUS SYSTEM: No numbness, weakness. CURRENT MEDICATIONS: Reviewed. They include: 1. Tylenol 650 q.6 p.r.n. 2. [place] 5 mg q.4 p.r.n. 3. Xanax 0.25 b.i.d. 4. Lipitor 10 mg at bedtime. 5. Flexeril 5 mg p.o. b.i.d. 6. Vibramycin 100 mg p.o. b.i.d. 7. Prozac. 8. Zestoretic 10/12.5 mg daily. 9. Heparin 5000 units subcutaneously q.8. 10.Dilaudid. 11.Melatonin. 12.Flagyl. 13.Narcan. 14.Protonix. 15.Ultram. 16.Dyazide. PHYSICAL EXAMINATION: Patient is alert, oriented x3. Pulse 55, blood pressure 134/61, respiration 18, temperature 98.0, pulse ox 98% on room air. HEENT: Conjunctivae normal. NECK: No jugular venous distention. CARDIOVASCULAR SYSTEM: S1, S2 muffled. RESPIRATORY SYSTEM: Breath sounds diminished at the bases. Scattered rhonchi. No crackles. ABDOMEN: Soft. Abdominal wall wound present. Minimal tenderness present. No guarding. No rigidity. No mass palpable. LEGS: No edema. No swelling. NERVOUS SYSTEM: No focal deficit. LABS: WBC 9.8, hemoglobin 9.4. Sodium 138. Potassium 3.7. ASSESSMENT: 1. Incisional wound as well as fat necrosis with necrotic wound infection, status post debridement. 2. Status post wound V.A.C. placement. 3. Mild abdominal pain. 4. Gait dysfunction. 5. Recurrent incarcerated incisional hernia. 6. Hypertension. 7. Hyperlipidemia. 8. History of gastroesophageal reflux disease. 9. History of gastric bypass surgery. 10.Anxiety, depression. 11.Obesity with body mass index of 44.2. 12.Anemia; anemia of chronic disease. RECOMMENDATIONS AND DISCUSSION: In this 54-year-old woman who presented with multiple complex medical issues, we will monitor the patient closely, continue the current medications, continue with symptomatic treatment, continue with IV antibiotics. Closely follow with Surgery and Infectious Disease. Otherwise, rest of the recommendations per Surgery. Further recommendations to follow. CT scan reviewed. Discussed with patient. Recommend close outpatient followup. MMODL / IJN: [id number] / CAMILA
[2019-07-30] MEDS: ATORVASTATIN 10 MG TAB PO SCH (21:42)
[2019-07-30] MEDS: LISINOPRIL-HCTZ 10-12.5 MG 1 EACH TAB PO SCH (21:42)
[2019-07-30] MEDS: OXYBUTYNIN 15 MG TAB.ER.24 PO SCH (21:42)
[2019-07-30] MEDS: MELATONIN 3 MG TABLET PO SCH (21:42)
[2019-07-30] MEDS: FLUoxetine HCL 20 MG CAP PO SCH (21:42)
--- NOTE | 2019-07-30 23:31 | PN ---
PROGRESS NOTE DATE OF SERVICE: 07/30/2019 REASON FOR FOLLOWUP: Abdominal wall cellulitis. INTERVAL HISTORY: The patient is currently afebrile. The patient has been complaining of more pain to the left lower abdominal area. The patient denies having any chest pain or shortness of breath or cough. No nausea, no vomiting and no diarrhea. PHYSICAL EXAMINATION: Her blood pressure is 124/79 with a pulse of 75, temperature 98.4. She is 94% on room air. General description is a middle-aged female lying in bed in no distress. RESPIRATORY SYSTEM: Unlabored breathing. Clear to auscultation anteriorly. HEART: S1, S2. Regular rate and rhythm. ABDOMEN: Soft. No tenderness. LABS: Hemoglobin is 9.4, white count 9.8 with a BUN of 9, creatinine 0.51. DIAGNOSTIC IMPRESSION AND PLAN: Patient with abdominal incision ischemia with underlying infection, status post removal of the mesh and extensive debridement. Patient now with more abdominal pain, mostly in the left lower abdominal area, with evidence of some fluid collection. This will be reviewed with the radiologist. The patient is currently covered with vancomycin. Plan is to continue local care with a wound V.A.C. Re-evaluate the patient tomorrow. Continue with supportive care. MMODL / IJN: [id number] /
[2019-07-31] MEDS: HEPARIN SODIUM,PORCINE 5,000 UNIT/ML 1 ML VIAL SQ SCH ×3 (00:09→15:41)
[2019-07-31] MEDS: HYDROcodone/APAP 5-325MG 1 EACH TAB PO PRN ×2 (00:10→08:43)
[2019-07-31 06:27] VITALS: RESP 16
[2019-07-31] MEDS: CYCLOBENZAPRINE 5 MG TAB PO SCH (08:42)
[2019-07-31] MEDS: metroNIDAZOLE 500 MG TAB PO SCH ×2 (08:42→15:41)
[2019-07-31] MEDS: PANTOPRAZOLE 40 MG TABLET PO SCH (08:42)
[2019-07-31] MEDS: DOXYCYCLINE 100 MG CAP PO SCH (08:43)
[2019-07-31 09:35] LABS: Basophils # (A) 0.1 k/uL (0-0.2); Basophils % (A) 1 %; Eosinophils # (A) 0.5 k/uL (0-0.7); Eosinophils % (A) 5 %; HCT 32.2 % (34.0-46.0); Hypochromasia Slight; Lymphocytes # (A) 1.9 k/uL (1.0-4.8); Lymphocytes % (A) 21 %; MCH 28.6 pg (25.0-35.0); MCV 92.3 fL (80.0-100.0); Mean Platelet Volume 5.9; Monocytes # (A) 0.4 k/uL (0-1.0); Monocytes % (A) 5 %; Neutrophils # (A) 6.1 k/uL (1.3-7.7); Neutrophils % (A) 67 %; Platelet Count 724 k/uL (150-450); RBC 3.49 m/uL (3.80-5.40); RDW 13.7 % (11.5-15.5); WBC 9.2 k/uL (3.8-10.6)
[2019-07-31 09:36] LABS: African American GFR (CKD) >90 (>60 ml/min/1.73 sqM); Anion Gap 7 mmol/L; Blood Urea Nitrogen 9 mg/dL (7-17); Calcium 8.3 mg/dL (8.4-10.2); Carbon Dioxide 27 mmol/L (22-30); Chloride 104 mmol/L (98-107); Glucose 184 mg/dL (74-99); Potassium 3.8 mmol/L (3.5-5.1); Sodium 138 mmol/L (137-145)
--- NOTE | 2019-07-31 11:50 | P.CNNES ---
History of Present Illness Consult date: 07/31/19 Reason for Consult: Abnormal EEG Chief complaint: Abnormal body movements while sleeping History of Present Illness: HISTORY OF PRESENT ILLNESS: Thank you for allowing me to evaluate Mrs. Breann Reed. Ms. Reed is a 54-year-old woman with history of GERD, hyperlipidemia, hypertension, hernia, bowel obstruction, presented to [facility] on 07/22/2019 for possible infection of incision area (hernia was repaired on 07/04/2019), consulted neurology for abnormal EEG. When discussing with the patient and the nurse, family members have been complaining about the patient having random movements while sleeping. At times patient is using her arms hitting her abdomen or her legs will be elevated and making movements as if she is riding a bicycle. These episodes have been witnessed since the surgery. Daughter was at bedside. Patient sleeps in the same by with her . Her had not complained about the patient making any random movements while she was sleeping before these events. Patient does state that sometimes she wakes up knowing that she will sleep talking. Patient also reports that she has had episodes of what seemed like restless leg syndrome, but patient has never seen a doctor for it. Patient looks slightly confused when she wakes up after these events. Patient had an EEG done on 07/24/2019 which did not show any seizure activity. Patient reports significant depression for many years. Denies constipation PAST MEDICAL HISTORY: GERD, hyperlipidemia, hypertension, hernia, bowel obstruction, obesity, anxiety, depression PAST SURGICAL HISTORY: Bariatric surgery 15 years ago, breast surgery, , cholecystectomy, hernia repair, hysterectomy, left breast biopsy HOME MEDICATIONS: LisinoprilHCTZ, tramadol, simvastatin, ibuprofen, oxybutynin, fluoxetine, Xanax, albuterol, multivitamin, cyclobenzaprine ALLERGIES: Cephalexin SOCIAL HISTORY: Former smoker. Social drinker. FAMILY HISTORY: Father had a stroke. Past away at 49. Mother had an NH. Past away at 57 REVIEW OF SYSTEMS: The 14 systems are reviewed and no additional points are identified compared to the review of systems documented history and physical PHYSICAL EXAMINATION: VITAL SIGNS: T 98.0 HR 71 RR 16 BP 131/80 O2 sat 94% on RA GEN.: NAD, pleasant and cooperative HEENT: NCAT, sclera without icterus NECK: Supple SKIN AND EXTREMITIES: Warm to touch, no edema NEURO: MENTAL STATUS: Patient alert and oriented to self, place, time. Able to name the current president. Speech fluent, able to name and repeat, following all commands readily. No right and left disorientation, extinction to double simultaneous stimulation, finger agnosia, neglect. CRANIAL NERVES II THROUGH XII: II: Pupils are equal and reactive to light symmetrically. No afferent pupillary defect. Visual beasley are intact. III, IV, : No ptosis. Extraocular movements full. No nystagmus. V: Facial sensation intact from V1-3. VII. No clear facial asymmetry. VIII: Hearing intact to finger rub bilaterally. IX, X: Symmetric palate elevation. XI: Shoulder shrug intact. XII: Tongue midline without fasciculation or atrophy. MOTOR: Normal bulk/tone. No pronator drift. Mild physiologic tremor. Strength is 5/5 throughout all 4 extremities. SENSORY: Intact to light touch, temperature, pinprick in all 4 extremities. Romberg is negative. REFLEXES: 2+ throughout. Toes are downgoing. No clonus. Elizabeth's is absent COORDINATION: Finger to nose and heel to collado intact. No dysmetria. Rapid alternating movements with good speed and accuracy. GAIT: Narrow-based and stable. Able to toe/heel/tandem walk DIAGNOSTIC TESTING: LABORATORY: WBC 9.2 (10.0 platelets 724 sodium 138 potassium 3.8 chloride 104 bicarb 27 BUN 9 creatinine 0.54 glucose 184 AST 51 ALT 81 IMAGING: CT head without contrast 07/23/2019: No acute intracranial abnormality. Mild cerebral atrophy. EEG 07/24/2019: Abnormal EEG due to mild background slowing. Suggestive of generalized cerebral dysfunction can be seen with toxic metabolic encephalopathy or diffuse structural brain abnormality. No definite epileptiform activity was seen. ASSESSMENT: 54-year-old woman with history of GERD, hyperlipidemia, hypertension, hernia, bowel obstruction, presented to [facility] on 07/22/2019 for possible infection of incision area (hernia was repaired on 07/04/2019), consulted neurology for abnormal EEG, along with episodes of abnormal movements while patient sleeping. Daughter showed a video of the patient sleep talking and then falling asleep right away. It appears the patient may have a sleep disorder that may be the etiology of her movements. Patient also reports that she has a history of sleep apnea, which was worse before her bariatric surgery. Patient is not currently on CPAP. Routine EEG on 07/24/2019 with no seizure activity. RECOMMENDATIONS: 1. No additional inpatient workup recommended at this time. 2. Patient will benefit from getting a sleep study as outpatient. 3. Patient should follow up with her PCP and also neurologist within 2-3 weeks of discharge. 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 Past Drug Use History: None Reported - Past Family History Father Family Medical History: CVA/TIA Additional Family Medical History / Comment(s): AT 49 Mother Family Medical History: Myocardial Infarction (NH) Additional Family Medical History / Comment(s): AT 57 Medications and Allergies Home Medications Medication Instructions Recorded Confirmed Type Lisinopril-Hctz 10-12.5 mg 1 tab PO HS 07/03/14 07/22/19 History [Zestoretic 10-12.5] Simvastatin [Zocor] 10 mg PO HS 07/03/14 07/22/19 History Albuterol Sulfate [Proair Hfa] 2 puff INHALATION RT-Q6H PRN 03/11/19 07/22/19 History FLUoxetine HCL [PROzac] 80 mg PO HS 03/11/19 07/22/19 History Multivitamins, Thera [Multivitamin 1 tab PO HS 03/11/19 07/22/19 History (formulary)] Oxybutynin Chloride [Oxybutynin 15 mg PO HS 03/11/19 07/22/19 History Chloride ER] Triamterene-Hctz 37.5-25Mg 1 cap PO DAILY PRN 07/02/19 07/22/19 History [Dyazide 37.5-25 Capsule] ALPRAZolam [Xanax] 0.25 mg PO BID PRN #6 tab 07/29/19 Rx Docusate [Colace] 100 mg PO BID #30 capsule 07/29/19 Rx Doxycycline [Vibramycin] 100 mg PO BID #14 capsule 07/29/19 Rx Hydrocodone/Acetaminophen [[place] 1 tab PO Q6HR PRN 3 Days #12 tab 07/29/19 Rx 5-325] metroNIDAZOLE [Flagyl] 500 mg PO TID #21 tab 07/29/19 Rx Allergies Allergy/AdvReac Type Severity Reaction Status Date / Time cephalexin monohydrate Allergy Rash/Hives Verified 07/22/19 14:23 [From Keflex] Physical Examination - Vital Signs Vital Signs: Vital Signs Temp Pulse Resp BP Pulse Ox 07/31/19 06:26 98.0 F 71 16 131/80 94 L 07/30/19 22:21 98.4 F 75 15 124/79 94 L 07/30/19 12:34 98.1 F 55 L 18 134/61 98 Intake and Output 07/30/19 07/31/19 07/31/19 22:59 06:59 14:59 Other: Voiding Method Bedside Commode Bedside Commode # Voids 1 1 Results - Laboratory Findings CBC and BMP: 07/31/19 09:01 07/31/19 09:01 Abnormal Lab Findings: Abnormal Labs 07/22/19 07/22/19 07/24/19 13:53 13:53 08:52 WBC 11.1 H 11.5 H RBC 3.49 L 3.24 L Hgb 10.6 L 9.6 L Hct 31.8 L 29.6 L Plt Count 681 H 647 H Neutrophils # 8.5 H Sodium 135 L Potassium Creatinine 0.47 L Glucose 104 H Calcium 8.2 L AST Total Protein 5.5 L Albumin 2.8 L 07/24/19 07/25/19 07/25/19 08:52 09:11 09:11 WBC 11.9 H RBC 3.35 L Hgb 10.1 L Hct 30.9 L Plt Count 731 H Neutrophils # 9.4 H Sodium 135 L 133 L Potassium 3.2 L Creatinine 0.51 L Glucose 171 H Calcium 8.0 L 8.0 L AST Total Protein Albumin 07/27/19 07/27/19 07/29/19 07:43 07:43 07:45 WBC RBC 3.22 L Hgb 9.5 L Hct 29.7 L Plt Count 770 H Neutrophils # Sodium Potassium Creatinine Glucose Calcium 8.0 L 8.0 L AST Total Protein Albumin 07/29/19 07/30/19 07/30/19 07:45 08:24 08:24 WBC RBC 3.11 L 3.21 L Hgb 9.2 L 9.4 L Hct 28.7 L 29.9 L Plt Count 722 H 762 H Neutrophils # Sodium Potassium Creatinine 0.51 L Glucose Calcium 8.3 L AST 51 H Total Protein 5.0 L Albumin 2.6 L 07/30/19 07/31/19 07/31/19 08:27 09:01 09:01 WBC RBC 3.49 L Hgb 10.0 L Hct 32.2 L Plt Count 724 H Neutrophils # Sodium Potassium Creatinine 0.51 L Glucose 184 H Calcium 8.3 L AST Total Protein Albumin
[2019-07-31] MEDS: SODIUM CHLORIDE 0.9% 1,000 ML IV SCH (12:04)
--- NOTE | 2019-07-31 12:06 | PN ---
PROGRESS NOTE DATE OF SERVICE: 07/31/2019 REASON FOR FOLLOWUP: Abdominal wound and cellulitis. INTERVAL HISTORY: The patient is currently afebrile. The patient is feeling better. The patient's left lower abdominal pain has improved compared to yesterday. Denies having any chest pain, shortness of breath or cough. No nausea, no vomiting. No abdominal pain, no diarrhea. PHYSICAL EXAMINATION: Blood pressure 131/80 with a pulse of 71, temperature 98, she is 94% on room air. General description is a middle-aged female, up in the chair in no distress. RESPIRATORY SYSTEM: Unlabored breathing, clear to auscultation anteriorly. HEART: S1, S2. Regular rate and rhythm. ABDOMEN: Soft, wound is currently covered with the wound VAC. No significant distention or tenderness was noted to the left lower quadrant area. LABS: Hemoglobin is 10, white count 9.2 with a BUN of 9, creatinine 0.54. DIAGNOSTIC IMPRESSION AND PLAN: Patient with abdominal wound, post surgical debridement of an ischemic incision. Culture positive for Staph epi and anaerobic gram-negative. Patient is currently covered with vancomycin and Flagyl to finish therapy with oral doxycycline and Flagyl. Local care with wound VAC and [facility] next week. MMODL / IJN: [id number] /
[2019-07-31 13:09] VITALS: BP 125/80; PULSE 70; TEMP 97.5
[2019-07-31] MEDS: ALPRAZolam 0.25 MG TAB PO PRN (15:39)
--- NOTE | 2019-08-01 07:19 | PN ---
PROGRESS NOTE DATE OF SERVICE: 07/31/2019 This is a 54-year-old woman who was admitted after surgery of incisional wound, is being planned to be sent to the [facility]. At this time no chest pain, no palpitations. Dr. Cloud's reviewed the CAT scan, recommended for outpatient followup. Neurology is also following the patient as well as Infectious Disease. No chest pain, no palpitation. PHYSICAL EXAM: Pulse is 70, blood pressure 125/80, respiration 16, temperature 97.4, pulse ox 98% on room air. HEENT: Conjunctivae normal. NECK: No jugular venous distension. CARDIOVASCULAR: S1, S2, muffled. RESPIRATIONS: Breath sounds diminished in the bases. ABDOMEN: Soft, nontender. Status post incisional wound repair. NERVOUS SYSTEM: No focal deficits. LABS: WBC is 9.2, hemoglobin is 10. ASSESSMENT: 1. Status post incisional wound as well as fat necrosis with necrotic wound infection, status post debridement. 2. Status post wound VAC placement. 3. Abdominal pain, improved. 4. Gait dysfunction. 5. Recurrent incarcerated incisional hernia. 6. Hypertension. 7. Hyperlipidemia. 8. History of gastroesophageal reflux disease. 9. History of gastric bypass surgery. 10.Anxiety, depression. 11.Obesity with body mass index of 44.2. 12.Anemia of chronic disease. RECOMMENDATION: Recommend to continue current medications, continue with the monitoring and symptomatic treatment. Otherwise, at this time I recommend close followup in the ECF and further recommendations per Infectious Disease and Surgery and as well as Neurology. MMODL / IJN: [id number] /
== END 2019-07-31 16:10 | DRG 857 ==
LOC: EC 11:57 → 4MS4W 14:06
PROVIDERS: ADMIT Surgery; ATTEND Surgery
PROC: 0HB7XZZ Excision of Abdomen Skin, External Approach (ICD-10-PCS; 2019-07-24)
PROC: 0WPF0JZ Removal of Synthetic Substitute from Abdominal Wall, Open Approach (ICD-10-PCS; principal; 2019-07-24 13:10)
DX: T81.49XA Infection following a procedure, other surgical site, initial encounter (principal); Z68.41 Body mass index [BMI] 40.0-44.9, adult; I96 Gangrene, not elsewhere classified; L03.311 Cellulitis of abdominal wall; D63.8 Anemia in other chronic diseases classified elsewhere; E66.01 Morbid (severe) obesity due to excess calories; E78.5 Hyperlipidemia, unspecified; F32.9 Major depressive disorder, single episode, unspecified; F41.9 Anxiety disorder, unspecified; G47.30 Sleep apnea, unspecified; I10 Essential (primary) hypertension; K21.9 Gastro-esophageal reflux disease without esophagitis; R26.9 Unspecified abnormalities of gait and mobility; R94.01 Abnormal electroencephalogram [EEG]; Z87.891 Personal history of nicotine dependence; Z88.1 Allergy status to other antibiotic agents; Z90.710 Acquired absence of both cervix and uterus; Z98.84 Bariatric surgery status; Z79.899 Other long term (current) drug therapy; Z90.49 Acquired absence of other specified parts of digestive tract; Z82.3 Family history of stroke; Z82.49 Family history of ischemic heart disease and other diseases of the circulatory system; Y83.2 Surgical operation with anastomosis, bypass or graft as the cause of abnormal reaction of the patient, or of later complication, without mention of misadventure at the time of the procedure
CPT/HCPCS: 36415; 70450; 71045; 74176; 80048; 80053; 82565; 83735; 85025; 87070; 87075; 87077; 87186; 87205; 88304; 95816; 99284